=== PATIENT | female | born 2000 | race Caucasian/White ===

== ENCOUNTER → 2024-04-19 | Outpatient (CLI) | payer OTHER, SELFPAY ==
[2024-04-21 15:08] LABS: Albumin 4.1 g/dL (2.9-4.4); Alpha-1-Globulins 0.2 g/dL (0.0-0.4); Alpha-2-Globulins 0.9 g/dL (0.4-1.0); Gamma Globulin 0.8 g/dL (0.4-1.8); Immunoglobulin A 124 mg/dL (87-352); Immunoglobulin G 924 mg/dL (586-1602); Immunoglobulin M 138 mg/dL (26-217); PROEL- TOTAL PROTEIN 7.1 g/dL (6.0-8.5)
== END | disposition home or self-care (01) ==
PROVIDERS: PCP Nurse Practitioner Family; Referring Provider Psychiatry & Neurology Neurology; Visit Provider Psychiatry & Neurology Neurology
DX: M32.13 Lung involvement in systemic lupus erythematosus (principal)
CPT/HCPCS: 36415; 82784; 84165; 86334

== ENCOUNTER → 2024-09-02 | Outpatient (CLI) | payer OTHER, SELFPAY ==
[2024-09-02 14:17] LABS: Hematocrit 40.8 % (37-47); Hemoglobin 13.6 g/dL (12.0-15.0); Mean Corp Hgb Conc 33.3 g/dL (32-36); Mean Corpuscular Volume 87.7 fL (81-99); Mean Platelet Vol. 10.2 fl (6.2-12.0); Platelet Count 357 K/mm3 (150-450); RBC Distribution Width CV 11.9 % (11.6-14.6); RBC Distribution Width SD 38.5 fl (35.1-43.9); Red Blood Count 4.65 M/mm3 (4.2-5.4); White Blood Count 6.7 K/mm3 (4.4-11.0)
[2024-09-02 15:25] LABS: AST(SGOT) 59 U/L (<=31); Alanine Aminotransfer ALT/SGPT 39 U/L (<=34); Albumin, Serum 4.4 g/dL (3.5-5.0); Alkaline Phosphatase 71 U/L (35-104); Anion Gap 14 (5-15); BUN 10 mg/dL (4-19); BUN/Creat Ratio 17.2 RATIO (10-20); CRP 7.53 mg/L (0.0-3.0); Calcium,Total 9.7 mg/dL (7.6-11.0); Carbon Dioxide 22.1 mmol/L (21.0-32.0); Chloride 101 mmol/L (98-108); Cholesterol 226 mg/dL (<=190); Globulin 3.3 g/dL (2.2-4.2); Glucose 88 mg/dL (70-99); Low Density Lipoprotein Calc. 108 mg/dL; Potassium 4.3 mmol/L (3.3-5.1); Triglycerides 298 mg/dL; Very Low Density Lipoprotein 60 mg/dL (5-40); cholesterol:hdl ratio screen 3.90
[2024-09-02 15:39] LABS: Vitamin B12 161 pg/mL (180-914); Vitamin D,25 Hydroxy 25.3 ng/mL (30-100)
[2024-09-02 15:39] LABS: FOLATES,SERUM (FOLIC ACID) 17.90 ng/mL (4.60-34.80)
[2024-09-06 14:08] LABS: ANTINUCLEAR ANTIBODIES DIRECT Negative (Negative)
[2024-09-07 14:08] LABS: EBV Acute VCA IgM < 36.0 U/mL (0.0-35.9); EBV-VCA IgG < 18.0 U/mL (0.0-17.9); Lyme Scn Total Ab w/Rflx Negative (Negative); West Nile Virus, IgG Negative (Negative); West Nile Virus, IgM Negative (Negative)
== END | disposition home or self-care (01) ==
LOC: LAB 13:28
PROVIDERS: PCP Nurse Practitioner Family
DX: G44.52 New daily persistent headache (NDPH) (principal); Z79.899 Other long term (current) drug therapy; G43.719 Chronic migraine without aura, intractable, without status migrainosus
CPT/HCPCS: 36415; 80053; 80061; 82306; 82607; 82670; 82746; 83516; 84439; 84443; 85027; 85652; 86038; 86140; 86225; 86618; 86664; 86665; 86788; 86789

== ENCOUNTER → 2024-10-25 | Outpatient (CLI) | payer OTHER, SELFPAY ==
--- NOTE | 2024-10-25 09:13 | MRI_ITS ---
PROCEDURE: MRI SPINE CERVICAL (ROUTINE) 10/25/2024 REASON FOR EXAM: CERVICALGIA TECHNIQUE: Procedure Code: MRISPC Modality: MR Procedure: SPINE CERVICAL (ROUTINE) Multiplanar and multisequential MRI of the cervical spine was performed without contrast. COMPARISON: None. FINDINGS: No fracture or malalignment. Vertebral bodies are preserved in height with normal marrow signal. Straightening of the cervical lordosis may be positional or related to muscle spasm. Well preserved disc heights and signal intensities, no significant degenerative changes are appreciated. Widely patent spinal canal and bilateral neural foramina. No disc herniation. The visualized contents of the posterior fossa appear normal. Cerebellar tonsils are normally situated. The visualized spinal cord is normal in signal and contour. No mass lesion or abnormal collection within the spinal canal. Unremarkable paravertebral soft tissues. MRI/Spine Cervical (Routine) IMPRESSION: Normal cervical spine MRI. No spinal canal or foraminal narrowing. Straightening of the cervical lordosis may be positional or related to muscle s pasm. Reading Location: [facility]
--- NOTE | 2024-10-25 09:13 | MRI_ITS ---
PROCEDURE: MRI BRAIN W/WO CONTRAST 10/25/2024 REASON FOR EXAM: Chronic migraine headaches TECHNIQUE: Procedure Code: [id number] Modality: MR Procedure: BRAIN W/WO CONTRAST Multiplanar and multisequential MRI of the brain was performed without and with IV gadolinium based contrast administration. CONTRAST: Clariscan VOLUME: 12 mL COMPARISON: None available. FINDINGS: Ventricular and sulcal size and configuration are within normal limits. No regions of abnormal restricted diffusion, susceptibility, or other parenchymal signal alteration. No intracranial mass lesion or pathologic enhancement. Major vascular flow voids are preserved. Orbital contents are unremarkable. Well-aerated paranasal sinuses and mastoid air cells. MRI/Brain W/WO Contrast IMPRESSION: Normal brain MRI; no explanation for headaches. Reading Location: [facility]
== END | disposition home or self-care (01) ==
PROVIDERS: PCP Nurse Practitioner Family
DX: R51.9 Headache, unspecified (principal); M54.2 Cervicalgia; F95.2 Tourette's disorder
CPT/HCPCS: 70553; 72141; A9575; A4216

== ENCOUNTER → 2025-01-07 | Outpatient (CLI) | payer OTHER, SELFPAY ==
--- OUTSIDE RECORDS SUMMARY | 2025-01-07 11:20 | XMS RPT_ITS | CCD ---
Author Organization [facility] CliniSyin Care Team Providers Care Chemical Blender Name Role Phone SMOOTH JORDAN Attending Unavailable JULIO CÉSAR, GRACIA SWAN Primary Care Unavailable REFERRED, SELF Referring Unavailable SMOOTH JORDAN Attending Unavailable JULIO CÉSAR, GRACIA DEHABETSY Primary Care Unavailable JULIO CÉSAR, GRACIA DEHASS Referring Unavailable Unavailable Primary Care Provider Unavailabl e Unavailable Primary Care Provider Unavailabl e JEANETTE VENEGAS CNP Admitting Unavailable JEANETTE VENEGAS CNP Attending Unavailable JEANETTE VENEGAS CNP Primary Care Unavailable O'GALEMANOJ FORGE TENDER Attending Unavailable Suzette'GALEMANOJ FORGE TENDER Primary Care Unavailable O'GALEMANOJ FORGE TENDER Admitting Unavailable JASON BALBUENA Attending Unavailable RICHY FREEDMAN Attending Unavailable JASON BALBUENA Referring Unavailable JASON BALBUENA Attending Unavailable SMOOTH JORDAN Referring Unavailable JASON BALBUENA Attending Unavailable Unavailable Primary Care Provider Unavailabl e Jeanette Venegas Primary Care Provider Brett FORGE TENDER-CGale Primary Care Provider [phone] Dr. Zarina Simeon MD Attending Provider Dr. Zarina Simeon MD Referring Provider ZARINA SLAUGHTER Attending Unavailable JEANETTE VENEGAS Primary Care Unavailable ZARINA SLAUGHTER Attending Unavailable JEANETTE VENEGAS Primary Care Unavailable ZARINA SLAUGHTER Attending Unavailable JEANETTE VENEGAS Primary Care Unavailable ZARINA SLAUGHTER Attending Unavailable JEANETTE VENEGAS Primary Care Unavailable ELPIDIO DOE Attending Provider ELPIDIO ODE Referring Provider Brett FORGE TENDER-CGale Primary Care Provider [place] Primary Care Unavailable SAGE DURAN Attending Unavailable [place] Primary Care Unavailable SAGE DURAN Attending Unavailable SAGE DURAN Referring Unavailable [place] Primary Care Unavailable Zarina Simeon Attending Unavailable Zraina Simeon Referring Unavailable ELPIDIO DOE Attending Physician Brett FORGE TENDER-CGale Primary Care Physician [phone] TO LAM Attending Physician Allergies Allergy Classification Reported Allergen(s) Allergy Type Date of Onset Reaction(s) Facility (2 sources) TILACTASE; Translations: [TILACTASE] Propensity to adverse reactions to drug (disorder) 0 Other: See Comments [facility] Repository (10 sources) Milk; Translations: [MILK CONTAINING PRODUCTS (DAIRY)] Drug Allergy 7 Mental Status Change, Other: See Comments [facility] (5 sources) Cow milk Propensity to adverse reactions 4 Headache [facility] Medications Current Medications Medication Drug Class(es) Dates Sig (Normalized) Sig (Original) drospirenone 3 mg / ethinyl estradiol 0.03 mg oral tablet (5 sources) Progestin, Estrogen drospirenone-ethin yl estradiol (Zumandimine) 3-0.03 MG tablet Take 1 tablet by mouth daily. Active escitalopram 20 mg oral tablet (14 sources) Serotonin Reuptake Inhibitor Start: 12-20-2022 take 1 tablet by mouth once daily escitalopram oxalate (LEXAPRO) 20 mg tablet Indications: Anxiety neurosis Take 1 tablet by mouth once daily. 12/20/2022 Active Comment on above: Take 1 tablet by [facility] once daily. ondansetron 4 mg oral tablet (3 sources) Serotonin-3 Receptor Antagonist Start: 02-18-2024 take 1 tablet by mouth every eight hours as needed for nausea and vomiting ondansetron (Zofran) 4 MG tablet Take 4 mg by mouth every 8 hours as needed for nausea or vomiting. 02/18/2024 Active Completed/Discontinued Medications Medication Drug Class(es) Dates Sig (Normalized) Sig (Original) amitriptyline hydrochloride 10 mg oral tablet (1 source) Tricyclic Antidepressant Start: 3 End: 4 take 1 tablet by mouth once daily at bedtime amitriptyline (ELAVIL) 10 mg tablet Indications: Chronic daily headache Take 1 tablet by mouth daily at bedtime. 90 tablet 1 12/20/2022 04/01/2023 Discontinued Comment on above: Take 1 tablet by micah th daily at bedtime. onabotulinumtoxina 200 unt injection (4 sources) Acetylcholine Release Inhibitor Start: End: onabotulinumtoxinA (Botox) injection 200 Units Start: 03-05-2024 End: 03-05-2024 inject 200 [IU] by intramuscular injection once 200 Units, IntraMUSCular, Once, On Fri03/05/24 at 1145, For 1 dose, FREE SAMPLE Start: 10-10-2023 End: 10-10-2023 onabotulinum toxin type A 20 0 Units injection (BOTOX) Start: 10-10-2023 End: 10-10-2023 inject 1 dose by intramuscular injection once 200 Units, INTRAMUSCULAR, ONCE, 1 dose, On Fri10/10/23 at 1400, This record documents the total dose provided to patient. See progress note for specific locations and amounts administered. 1.5 ml fremanezumab-vfrm 150 mg/ml auto-injector (7 sources) Start: 04-01-2023 End: 08-27-2023 inject 1.5 mL by subcutaneous injection every month fremanezumab-vfrm (AJOVY AUTOINJECTOR) 225 mg/1.5 mL auto-injector Indications: Intractable chronic migraine without aura and without status migrainosus Inject 1.5 mL subcutaneously once every month. Do not shake. 1.5 mL 5 04/01/2023 08/27/2023 Discontinued Comment on above: Inject 1.5 mL subcut aneously once every month. Do not shake. propranolol hydrochloride 20 mg oral tablet (6 sources) beta-Adrenergic Ardha Start: 04-01-2023 End: 07-01-2023 take 1 tablet by mouth once daily at bedtime propranolol (INDERAL) 20 mg tablet Indications: Intractable chronic migraine without aura and without status migrainosus Take 1 tablet by mouth daily at bedtime. 90 tablet 1 04/01/2023 07/01/2023 Discontinued (Other) Comment on above: Take 1 tablet by micah th daily at bedtime. Problems Problem Classification Problem Date Documented Da te Episodic/Chronic Headache; including migraine (10 sources) Chronic intractable migraine without aura; Translations: [Chronic migraine without aura, intractable, without status migrainosus] Onset: 09-07-2024 04-01-2023 Chronic Headache; including migraine (4 sources) Chronic daily headache; Translations: [Chronic daily headache] Onset: 09-11-2023 07-01-2023 Episodic Headache; including migraine (4 sources) Headache; including migraine; Translations: [Headache, unspecified] Onset: 08-28-2023 Malaise and fatigue (1 source) Other fatigue; Translations: [Other fatigue] Onset: 08-28-2023 Episodic Miscellaneous mental health disorders (5 sources) Dissociative neurological symptom disorder; 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 Imaging Services [address] [place], [place] [id number] Brain W/WO Contrast MR#: [id number] Acct: [id number] Name: FABIENNEMARY CHINO NEFTALI Rep #: [id number] : 2000 F 23 From: Song Corbin MD PCP: IRA Biggs, FORGE TENDER-C Status: REG CLI Study: Brain W/WO Contrast Date of Exam: 10/25/24 Exam# [id number] Ordering Dr: TO LAM MD PROCEDURE: MRI BRAIN W/WO CONTRAST 10/25/2024 REASON FOR EXAM: Chronic migraine headaches TECHNIQUE: Procedure Code: MRIBRWW Modality: MR Procedure: BRAIN W/WO CONTRAST Multiplanar and multisequential MRI of the brain was performed without and with IV gadolinium based contrast administration. CONTRAST: Clariscan VOLUME: 12 mL COMPARISON: None available. FINDINGS: Ventricular and sulcal size and configuration are within normal limits. No regions of abnormal restricted diffusion, susceptibility, or other parenchymal signal alteration. No intracranial mass lesion or pathologic enhancement. Major vascular flow voids are preserved. Orbital contents are unremarkable. Well-aerated paranasal sinuses and mastoid air cells. MRI/Brain W/WO Contrast IMPRESSION: Normal brain MRI; no explanation for headaches. Reading Location: [facility] CC: [facility] FORGE TENDER-C [place]; TO LAM MD Chief Concierge: Signed Normal [facility] Magnetic resonance imaging r eportOrdered By: Song Corbin on 10-25-[address] [facility] Imaging Services [address] [place] [address] Spine Cervical (Routine) MR#: [id number] Acct: [id number] Name: VEENAMARYOsman LINDSAY Rep #: [id number] : 2000 F 23 From: London Corbin MD PCP: Gale [place], [facility], FORGE TENDER-C Status: REG CLI Study:Spine Cervical (Routine) Date of Exam: 10/25/24 Exam# [id number] Ordering Dr: ANGELINE LAM MD PROCEDURE: MRI SPINE CERVICAL (ROUTINE) 10/25/2024 REASON FOR EXAM: CERVICALGIA TECHNIQUE: Procedure Code: MRISP Modality: MR Procedure: SPINE CERVICAL (ROUTINE) Multiplanar and multisequential MRI of the cervical spine was performed without contrast. COMPARISON: None. FINDINGS: No fracture or malalignment. Vertebral bodies are preserved in height with normal marrow signal. Straightening of the cervical lordosis may be positional or related to muscle spasm. Well preserved disc heights and signal intensities, no significant degenerative changes are appreciated. Widely patent spinal canal and bilateral neural foramina. No disc herniation. The visualized contents of the posterior fossa appear normal. Cerebellar tonsils are normally situated. The visualized spinal cord is normal in signal and contour. No mass lesion or abnormal collection within the spinal canal. Unremarkable paravertebral soft tissues. MRI/Spine Cervical (Routine) IMPRESSION: Normal cervical spine MRI. No spinal canal or foraminal narrowing. Straightening of the cervical lordosis may be positional or related to muscle spasm. Reading Location: [facility] CC: [facility] FORGE TENDER-C [place]; TO LAM MD ~ Chief Concierge: Signed [facility] Study report [facility] Imaging Services [address] [place], [place] [id number] Brain W/WO Contrast MR#: [id number] Acct: [id number] Name: MARY CURIEL Rep #: [id number] : 2000 F 23 From: London Corbin MD PCP: [place] Bear, FORGE TENDER-C Status: REG CLI Study:Brain W/WO Contrast Date of Exam: 10/25/24 Exam# [id number] Ordering Dr: ANGELINE LAM MD PROCEDURE: MRI BRAIN W/WO CONTRAST 10/25/2024 REASON FOR EXAM: Chronic migraine headaches TECHNIQUE: Procedure Code: MRIBRWW Modality: MR Procedure: BRAIN W/WO CONTRAST Multiplanar and multisequential MRI of the brain was performed without and with IV gadolinium based contrast administration. CONTRAST: Clariscan VOLUME: 12 mL COMPARISON: None available. FINDINGS: Ventricular and sulcal size and configuration are within normal limits. No regions of abnormal restricted diffusion, susceptibility, or other parenchymal signal alteration. No intracranial mass lesion or pathologic enhancement. Major vascular flow voids are preserved. Orbital contents are unremarkable. Well-aerated paranasal sinuses and mastoid air cells. MRI/Brain W/WO Contrast IMPRESSION: Normal brain MRI; no explanation for headaches. Reading Location: [facility] CC: [facility] FORGE TENDER-C Gale LAM MD ~ Chief Concierge: Signed [facility] Spine Cervical (Routine)on 0 10-25-2024 Spine Cervical (Routine) [facility] Imaging Services [address] [place], [place] [address] Spine Cervical (Routine) MR#: [id number] Acct: [id number] Name: MARY CURIEL Rep #: [id number] : 2000 F 23 From: Song Corbin MD PCP: Gale [place] [facility], FORGE TENDER-C Status: REG CLI Study: Spine Cervical (Routine) Date of Exam: Exam# [id number] Ordering Dr: TO LAM MD PROCEDURE: MRI SPINE CERVICAL (ROUTINE) 10/25/2024 REASON FOR EXAM: CERVICALGIA TECHNIQUE: Procedure Code: MRISP Modality: MR Procedure: SPINE CERVICAL (ROUTINE) Multiplanar and multisequential MRI of the cervical spine was performed without contrast. COMPARISON: None. FINDINGS: No fracture or malalignment. Vertebral bodies are preserved in height with normal marrow signal. Straightening of the cervical lordosis may be positional or related to muscle spasm. Well preserved disc heights and signal intensities, no significant degenerative changes are appreciated. Widely patent spinal canal and bilateral neural foramina. No disc herniation. The visualized contents of the posterior fossa appear normal. Cerebellar tonsils are normally situated. The visualized spinal cord is normal in signal and contour. No mass lesion or abnormal collection within the spinal canal. Unremarkable paravertebral soft tissues. MRI/Spine Cervical (Routine) IMPRESSION: Normal cervical spine MRI. No spinal canal or foraminal narrowing. Straightening of the cervical lordosis may be positional or related to muscle spasm. Reading Location: [facility] CC: [facility] FORGE TENDER-C [place]; TO LAM MD Chief Concierge: Signed Normal [facility] KELLEY w/ Reflex Mult Confirmon 09-07-2024 ANTI-DNA (DS)AB TNP Normal [facility] Comment on above: Performed By: #### L 501.9520, L101.9900, L506.0200, L501.6710, L3100.5450, L3410.2920, L3300.1750, L7000.5300, L7000.5000, L100.0500, L3410.9992, L3100.5850, L500.4100, L506.0400, L500.4050, L506.1001, L503.0106 #### [facility] [address] [place], [address] ANTI-SS-A TNP Normal [facility] Comment on above: Performed By: #### L 501.9520, L101.9900, L506.0200, L501.6710, L3100.5450, L3410.2920, L3300.1750, L7000.5300, L7000.5000, L100.0500, L3410.9992, L3100.5850, L500.4100, L506.0400, L500.4050, L506.1001, L503.0106 #### [facility] [address] [place] [place], [address] ANTI-SS-B TNP Normal [facility] Comment on above: Performed By: #### L 501.9520, L101.9900, L506.0200, L501.6710, L3100.5450, L3410.2920, L3300.1750, L7000.5300, L7000.5000, L100.0500, L3410.9992, L3100.5850, L500.4100, L506.0400, L500.4050, L506.1001, L503.0106 #### [facility] [address] [place] [place], [address] EBV Acute Prof IgG / IgMon 0 - EB Ab VCA, IgG < 18.0 Normal 0.0-17.9 [facility] Comment on above: Result Comment: Nega tive <18.0 Equivocal 18.0 - 21.9 Positive >21.9 Performed By: #### L 501.9520, L101.9900, L506.0200, L501.6710, L3100.5450, L3410.2920, L3300.1750, L7000.5300, L7000.5000, L100.0500, L3410.9992, L3100.5850, L500.4100, L506.0400, L500.4050, L506.1001, L503.0106 #### [facility] [address] [place] [place], [address] EBV Ab VCA, IgM < 36.0 Normal 0.0-35.9 [facility] Comment on above: Result Comment: Nega tive <36.0 Equivocal 36.0 - 43.9 Positive >43.9 Performed By: #### L 501.9520, L101.9900, L506.0200, L501.6710, L3100.5450, L3410.2920, L3300.1750, L7000.5300, L7000.5000, L100.0500, L3410.9992, L3100.5850, L500.4100, L506.0400, L500.4050, L506.1001, L503.0106 #### [facility] [address] [place] [place], [address] EBV NuAg Ab,IgG < 18.0 Normal 0.0-17.9 [facility] Comment on above: Result Comment: Nega tive <18.0 Equivocal 18.0 - 21.9 Positive >21.9 Performed By: #### L 501.9520, L101.9900, L506.0200, L501.6710, L3100.5450, L3410.2920, L3300.1750, L7000.5300, L7000.5000, L100.0500, L3410.9992, L3100.5850, L500.4100, L506.0400, L500.4050, L506.1001, L503.0106 #### [facility] [address] [place], [address] INTERPRETATION Comment Normal . [facility] Comment on above: Result Comment: EBV Interpretation Chart Tang: Antibody Present + Antibody Absent - Interpretation VCA-IgM VCA-IgG EBNA-IgG No previous infection/ - - - Susceptible Primary infection (new + + - or recent) Past Infection +or- + + See comment below* + - - *Results indicate infection with EBV at some time however cannot predict the timing of the infection since antibodies to EBNA usually develop after primary infection or, alternatively, approximately 5-10% of patients with EBV never develop antibodies to EBNA. Performed By: #### L 501.9520, L101.9900, L506.0200, L501.6710, L3100.5450, L3410.2920, L3300.1750, L7000.5300, L7000.5000, L100.0500, L3410.9992, L3100.5850, L500.4100, L506.0400, L500.4050, L506.1001, L503.0106 #### [facility] [address] [place] [place], [address] Lyme Screen W/Reflex WBon LYME SCREEN Ab Negative Normal Negative [facility] Comment on above: Result Comment: Lyme antibodies not detected. Reflex testing is not indicated. No laboratory evidence of infection with B. burgdorferi (Lyme disease). Negative results may occur in patients recently infected (less than or equal to 14 days) with B. burgdorferi. If recent infection is suspected, repeat testing on a new sample collected in 7 to 14 days is recommended. Performed By: #### L 501.9520, L101.9900, L506.0200, L501.6710, L3100.5450, L3410.2920, L3300.1750, L7000.5300, L7000.5000, L100.0500, L3410.9992, L3100.5850, L500.4100, L506.0400, L500.4050, L506.1001, L503.0106 #### [facility] [address] [place] [place], [address] West Nile Virus Abon 025 [place], IgG Negative Normal Negative [facility] Comment on above: Performed By: #### L 501.9520, L101.9900, L506.0200, L501.6710, L3100.5450, L3410.2920, L3300.1750, L7000.5300, L7000.5000, L100.0500, L3410.9992, L3100.5850, L500.4100, L506.0400, L500.4050, L506.1001, L503.0106 #### [facility] [address] [place], [place], [id number] [place], IgM Negative Normal Negative [facility] Comment on above: Performed By: #### L 501.9520, L101.9900, L506.0200, L501.6710, L3100.5450, L3410.2920, L3300.1750, L7000.5300, L7000.5000, L100.0500, L3410.9992, L3100.5850, L500.4100, L506.0400, L500.4050, L506.1001, L503.0106 #### [facility] [address] [place], [place], [id number] t-Transglutaminase IgAon tTG IGA <2 Normal 0-3 [facility] Comment on above: Result Comment: Nega tive 0 - 3 Weak Positive 4 - 10 Positive >10 Tissue Transglutaminase (tTG) has been identified as the endomysial antigen. Studies have demonstr- ated that endomysial IgA antibodies have over 99% specificity for gluten sensitive enteropathy. Performed at: [address] [id number] Overlay Plastician: Lamberto Quiroz PhD, Phone: [phone] Performed at: [address] [id number] Overlay Plastician: Iban Reagan MD, Phone: [phone] Performed By: #### L 501.9520, L101.9900, L506.0200, L501.6710, L3100.5450, L3410.2920, L3300.1750, L7000.5300, L7000.5000, L100.0500, L3410.9992, L3100.5850, L500.4100, L506.0400, L500.4050, L506.1001, L503.0106 #### [facility] [place], [address] L3410.9992on 09-06-2024 [facility] Misc. COMMENT Normal . [facility] Comment on above: Order Comment: [id number] 0URINE TOX RT Result Comment: Test Ordered: [id number] Amphetamines Screen, Urine Negative ng/mL UI Reference Range: Dcsldh=863 Amphetamine test includes Amphetamine and Methamphetamine. Barbiturates Negative ng/mL UI Reference Range: Qromxt=470 Benzodiazepines Negative ng/mL UI Reference Range: Zvhhvi=564 Cocaine (Metab.), Urine Negative ng/mL UI Reference Range: Qzbvbg=537 Opiates Negative ng/mL UI Reference Range: Ndgqbj=371 Opiate test includes Codeine, Morphine, Hydromorphone, Hydrocodone. 6-Acetylmorphine, Urine Negative ng/mL UI Reference Range: Cutoff=10 Oxycodone/Oxymorphone, Urine Negative ng/mL UI Reference Range: Wdbsnf=988 Test includes Oxycodone and Oxymorphone PCP, Urine Negative ng/mL UI Reference Range: Cutoff=25 Methadone Screen, Urine Negative ng/mL UI Reference Range: Gxgsjf=717 Propoxyphene, Urine Negative ng/mL UI Reference Range: Lmghhi=728 Fentanyl, Urine Negative ng/mL UI Reference Range: Cutoff=2.0 Test includes Fentanyl and Norfentanyl This test was developed and its performance characteristics determined by [facility]. It has not been cleared or approved by the Food and Drug Administration. Tramadol Negative ng/mL UI Reference Range: Ceylqd=022 Buprenorphine, Urine Negative ng/mL UI Reference Range: Cutoff=10 Creatinine, Urine 69.7 mg/dL UI Reference Range: 20.0-300.0 pH, Urine 7.4 UI Reference Range: 4.5-8.9 Performed at: - [facility] [address] [facility], [place] [id number] Overlay Plastician: Sher Jaramillo PhD, Phone: [phone] Performed at: [address] [id number] Overlay Plastician: Lamberto Quiroz PhD, Phone: [phone] Performed By: #### L 501.9520, L101.9900, L506.0200, L501.6710, L3100.5450, L3410.2920, L3300.1750, L7000.5300, L7000.5000, L100.0500, L3410.9992, L3100.5850, L500.4100, L506.0400, L500.4050, L506.1001, L503.0106 #### [facility] [address] [place], [address] Anion gap in Serum or Plasma on 09-02-2024 Anion gap [Moles/Vol] 14 mmol/L 5-15 [facility] BUN/creatinine ratioon 09-02 Urea nitrogen/Creatinine [Mass ratio] 17.2 mg/mg 10- [facility] Bilirubin, totalon Bilirubin [Mass/Vol] 0.88 mg/dL 0.00-1.30 [facility] CBC-Complete Blood Cnt No Di ffon 09-02-2024 Erythrocyte distribution width (RBC) [Ratio] 11.9 % Normal 11.6-14.6 [facility] Comment on above: Performed By: #### L 501.9520, L101.9900, L506.0200, L501.6710, L3100.5450, L3410.2920, L3300.1750, L7000.5300, L7000.5000, L100.0500, L3410.9992, L3100.5850, L500.4100, L506.0400, L500.4050, L506.1001, L503.0106 #### [facility] [address] [place], [address] Hematocrit (Bld) [Volume fraction] 40.8 % Normal 37-47 [facility] Comment on above: Performed By: #### L 501.9520, L101.9900, L506.0200, L501.6710, L3100.5450, L3410.2920, L3300.1750, L7000.5300, L7000.5000, L100.0500, L3410.9992, L3100.5850, L500.4100, L506.0400, L500.4050, L506.1001, L503.0106 #### [facility] [address] [place], [place], [phone] ([phone]) Hemoglobin (Bld) [Mass/Vol] 13.6 g/dL Normal 12.0-15.0 [facility] Comment on above: Performed By: #### L 501.9520, L101.9900, L506.0200, L501.6710, L3100.5450, L3410.2920, L3300.1750, L7000.5300, L7000.5000, L100.0500, L3410.9992, L3100.5850, L500.4100, L506.0400, L500.4050, L506.1001, L503.0106 #### [facility] [address] [place], [place], [phone] (581) MCH (RBC) [Entitic mass] 29.2 pg Normal 27.0-32.0 [facility] Comment on above: Performed By: #### L 501.9520, L101.9900, L506.0200, L501.6710, L3100.5450, L3410.2920, L3300.1750, L7000.5300, L7000.5000, L100.0500, L3410.9992, L3100.5850, L500.4100, L506.0400, L500.4050, L506.1001, L503.0106 #### [facility] [address] [place], [address] MCHC (RBC) [Mass/Vol] 33.3 g/dL Normal 32-36 [facility] Comment on above: Performed By: #### L 501.9520, L101.9900, L506.0200, L501.6710, L3100.5450, L3410.2920, L3300.1750, L7000.5300, L7000.5000, L100.0500, L3410.9992, L3100.5850, L500.4100, L506.0400, L500.4050, L506.1001, L503.0106 #### [facility] [address] [place], [address] (516) MCV (RBC) [Entitic vol] 87.7 fL Normal 81-99 [facility] Comment on above: Performed By: #### L 501.9520, L101.9900, L506.0200, L501.6710, L3100.5450, L3410.2920, L3300.1750, L7000.5300, L7000.5000, L100.0500, L3410.9992, L3100.5850, L500.4100, L506.0400, L500.4050, L506.1001, L503.0106 #### [facility] [address] [place], [address] Platelet mean volume (Bld) [Entitic vol] 10.2 fL Normal 6.2-12.0 [facility] Comment on above: Performed By: #### L 501.9520, L101.9900, L506.0200, L501.6710, L3100.5450, L3410.2920, L3300.1750, L7000.5300, L7000.5000, L100.0500, L3410.9992, L3100.5850, L500.4100, L506.0400, L500.4050, L506.1001, L503.0106 #### [facility] [address] [place], [address] (592) Platelets (Bld) [#/Vol] 357 10*3/uL Normal 150-450 [facility] Comment on above: Performed By: #### L 501.9520, L101.9900, L506.0200, L501.6710, L3100.5450, L3410.2920, L3300.1750, L7000.5300, L7000.5000, L100.0500, L3410.9992, L3100.5850, L500.4100, L506.0400, L500.4050, L506.1001, L503.0106 #### [facility] [address] [place], [place], [id number] RBC (Bld) [#/Vol] 4.65 10*6/uL Normal 4.2-5.4 [facility] Comment on above: Performed By: #### L 501.9520, L101.9900, L506.0200, L501.6710, L3100.5450, L3410.2920, L3300.1750, L7000.5300, L7000.5000, L100.0500, L3410.9992, L3100.5850, L500.4100, L506.0400, L500.4050, L506.1001, L503.0106 #### [facility] [address] [place], [place], [id number] RDW SD 38.5 fl Normal 35.1-43.9 [facility] Comment on above: Performed By: #### L 501.9520, L101.9900, L506.0200, L501.6710, L3100.5450, L3410.2920, L3300.1750, L7000.5300, L7000.5000, L100.0500, L3410.9992, L3100.5850, L500.4100, L506.0400, L500.4050, L506.1001, L503.0106 #### [facility] [address] [place], [place], [id number] WBC (Bld) [#/Vol] 6.7 10*3/uL Normal 4.4-11.0 [facility] Comment on above: Performed By: #### L 501.9520, L101.9900, L506.0200, L501.6710, L3100.5450, L3410.2920, L3300.1750, L7000.5300, L7000.5000, L100.0500, L3410.9992, L3100.5850, L500.4100, L506.0400, L500.4050, L506.1001, L503.0106 #### [facility] [address] [place], [place], [id number] CRPon 09-02-2024 C-REACTIVE PROT 7.53 mg/L High 0.0-3.0 [facility] Comment on above: Performed By: #### L 501.9520, L101.9900, L506.0200, L501.6710, L3100.5450, L3410.2920, L3300.1750, L7000.5300, L7000.5000, L100.0500, L3410.9992, L3100.5850, L500.4100, L506.0400, L500.4050, L506.1001, L503.0106 #### [facility] [address] [place], [place], [id number] Calculated very low density lipoprotein (VLDL) cholesterol measurementon 09-02-2024 Calculated very low density lipoprotein (VLDL) cholesterol measurement 60 mg/dL High 5-40 [facility] Carbon dioxide, total [Moles /volume] in Central venous bloodon 09-02-2024 CO2 [Moles/Vol] 22.1 mmol/L 21.0-32.0 [facility] Chloride assayon 09-02-2024 Chloride [Moles/Vol] 101 mmol/L 98-108 [facility] Metabolic Prof ilon 09-02-2024 Albumin [Mass/Vol] 4.4 g/dL Normal 3.5-5.0 [facility] Comment on above: Performed By: #### L 501.9520, L101.9900, L506.0200, L501.6710, L3100.5450, L3410.2920, L3300.1750, L7000.5300, L7000.5000, L100.0500, L3410.9992, L3100.5850, L500.4100, L506.0400, L500.4050, L506.1001, L503.0106 #### [facility] [address] [place], [place], [id number] Albumin/Globulin [Mass ratio] 1.3 {ratio} Normal 0.9-2.4 [facility] Comment on above: Performed By: #### L 501.9520, L101.9900, L506.0200, L501.6710, L3100.5450, L3410.2920, L3300.1750, L7000.5300, L7000.5000, L100.0500, L3410.9992, L3100.5850, L500.4100, L506.0400, L500.4050, L506.1001, L503.0106 #### [facility] [address] [facility] [place], [place], [id number] ALK PHOS 71 U/L Normal 35-104 [facility] Comment on above: Performed By: #### L 501.9520, L101.9900, L506.0200, L501.6710, L3100.5450, L3410.2920, L3300.1750, L7000.5300, L7000.5000, L100.0500, L3410.9992, L3100.5850, L500.4100, L506.0400, L500.4050, L506.1001, L503.0106 #### [facility] [address] [place], [place], [id number] ALT [Catalytic activity/Vol] 39 U/L High <=34 [facility] Comment on above: Performed By: #### L 501.9520, L101.9900, L506.0200, L501.6710, L3100.5450, L3410.2920, L3300.1750, L7000.5300, L7000.5000, L100.0500, L3410.9992, L3100.5850, L500.4100, L506.0400, L500.4050, L506.1001, L503.0106 #### [facility] [address] [place], [place], [id number] AST [Catalytic activity/Vol] 59 U/L High <=31 [facility] Comment on above: Performed By: #### L 501.9520, L101.9900, L506.0200, L501.6710, L3100.5450, L3410.2920, L3300.1750, L7000.5300, L7000.5000, L100.0500, L3410.9992, L3100.5850, L500.4100, L506.0400, L500.4050, L506.1001, L503.0106 #### [facility] [address] [place], [address] Bilirubin [Mass/Vol] 0.88 mg/dL Normal 0.00-1.30 [facility] Comment on above: Performed By: #### L 501.9520, L101.9900, L506.0200, L501.6710, L3100.5450, L3410.2920, L3300.1750, L7000.5300, L7000.5000, L100.0500, L3410.9992, L3100.5850, L500.4100, L506.0400, L500.4050, L506.1001, L503.0106 #### [facility] [address] [place], [address] BUN/CRE 17.2 RATIO Normal 10-20 [facility] Comment on above: Performed By: #### L 501.9520, L101.9900, L506.0200, L501.6710, L3100.5450, L3410.2920, L3300.1750, L7000.5300, L7000.5000, L100.0500, L3410.9992, L3100.5850, L500.4100, L506.0400, L500.4050, L506.1001, L503.0106 #### [facility] [address] [place], [address] Calcium [Mass/Vol] 9.7 mg/dL Normal 7.6-11.0 [facility] Comment on above: Performed By: #### L 501.9520, L101.9900, L506.0200, L501.6710, L3100.5450, L3410.2920, L3300.1750, L7000.5300, L7000.5000, L100.0500, L3410.9992, L3100.5850, L500.4100, L506.0400, L500.4050, L506.1001, L503.0106 #### [facility] [address] [place], [place], [id number] ([address] Chloride [Moles/Vol] 101 mmol/L Normal 98-108 [facility] Comment on above: Performed By: #### L 501.9520, L101.9900, L506.0200, L501.6710, L3100.5450, L3410.2920, L3300.1750, L7000.5300, L7000.5000, L100.0500, L3410.9992, L3100.5850, L500.4100, L506.0400, L500.4050, L506.1001, L503.0106 #### [facility] [address] [place], [address] CO2 [Moles/Vol] 22.1 mmol/L Normal 21.0-32.0 [facility] Comment on above: Performed By: #### L 501.9520, L101.9900, L506.0200, L501.6710, L3100.5450, L3410.2920, L3300.1750, L7000.5300, L7000.5000, L100.0500, L3410.9992, L3100.5850, L500.4100, L506.0400, L500.4050, L506.1001, L503.0106 #### [facility] [address] [facility] [address], [address] Creatinine [Mass/Vol] 0.61 mg/dL Low 0.70-1.20 [facility] Comment on above: Performed By: #### L 501.9520, L101.9900, L506.0200, L501.6710, L3100.5450, L3410.2920, L3300.1750, L7000.5300, L7000.5000, L100.0500, L3410.9992, L3100.5850, L500.4100, L506.0400, L500.4050, L506.1001, L503.0106 #### [facility] [address] [place], [address] GAP 14 Normal 5-15 [facility] Comment on above: Performed By: #### L 501.9520, L101.9900, L506.0200, L501.6710, L3100.5450, L3410.2920, L3300.1750, L7000.5300, L7000.5000, L100.0500, L3410.9992, L3100.5850, L500.4100, L506.0400, L500.4050, L506.1001, L503.0106 #### [facility] [address] [facility] [place], [place], [id number] GFR/1.73 sq M.predicted among non-blacks MDRD (S/P/Bld) [Vol rate/Area] 131 mL/min/{1.73_m2} Normal >60 [facility] Comment on above: Result Comment: mL/m in/1.73m2 CKD-EPI Creatinine Equation (2020) Performed By: #### L 501.9520, L101.9900, L506.0200, L501.6710, L3100.5450, L3410.2920, L3300.1750, L7000.5300, L7000.5000, L100.0500, L3410.9992, L3100.5850, L500.4100, L506.0400, L500.4050, L506.1001, L503.0106 #### [facility] [address] [place], [place], [id number] (971) Globulin (S) [Mass/Vol] 3.3 g/dL Normal 2.2-4.2 [facility] Comment on above: Performed By: #### L 501.9520, L101.9900, L506.0200, L501.6710, L3100.5450, L3410.2920, L3300.1750, L7000.5300, L7000.5000, L100.0500, L3410.9992, L3100.5850, L500.4100, L506.0400, L500.4050, L506.1001, L503.0106 #### [facility] [address] [place], [place], [id number] Glucose [Mass/Vol] 88 mg/dL Normal 70-99 [facility] Comment on above: Performed By: #### L 501.9520, L101.9900, L506.0200, L501.6710, L3100.5450, L3410.2920, L3300.1750, L7000.5300, L7000.5000, L100.0500, L3410.9992, L3100.5850, L500.4100, L506.0400, L500.4050, L506.1001, L503.0106 #### [facility] [address] [place], [place], [id number] Potassium [Moles/Vol] 4.3 mmol/L Normal 3.3-5.1 [facility] Comment on above: Performed By: #### L 501.9520, L101.9900, L506.0200, L501.6710, L3100.5450, L3410.2920, L3300.1750, L7000.5300, L7000.5000, L100.0500, L3410.9992, L3100.5850, L500.4100, L506.0400, L500.4050, L506.1001, L503.0106 #### [facility] [address] [place], [place], [id number] Sodium [Moles/Vol] 137 mmol/L Normal 133-145 [facility] Comment on above: Performed By: #### L 501.9520, L101.9900, L506.0200, L501.6710, L3100.5450, L3410.2920, L3300.1750, L7000.5300, L7000.5000, L100.0500, L3410.9992, L3100.5850, L500.4100, L506.0400, L500.4050, L506.1001, L503.0106 #### [facility] [address] [place], [place], [id number] T PROT 7.8 g/dL Normal 5.9-8.4 [facility] Comment on above: Performed By: #### L 501.9520, L101.9900, L506.0200, L501.6710, L3100.5450, L3410.2920, L3300.1750, L7000.5300, L7000.5000, L100.0500, L3410.9992, L3100.5850, L500.4100, L506.0400, L500.4050, L506.1001, L503.0106 #### [facility] [address] [place], [address] Urea nitrogen [Mass/Vol] 10 mg/dL Normal 4-19 [facility] Comment on above: Performed By: #### L 501.9520, L101.9900, L506.0200, L501.6710, L3100.5450, L3410.2920, L3300.1750, L7000.5300, L7000.5000, L100.0500, L3410.9992, L3100.5850, L500.4100, L506.0400, L500.4050, L506.1001, L503.0106 #### [facility] [address] [place], [place], [id number] Erythrocyte Sed Rateon 09-02 SED RATE 10 mm/hr Normal 0-30 [facility] Comment on above: Performed By: #### L 501.9520, L101.9900, L506.0200, L501.6710, L3100.5450, L3410.2920, L3300.1750, L7000.5300, L7000.5000, L100.0500, L3410.9992, L3100.5850, L500.4100, L506.0400, L500.4050, L506.1001, L503.0106 #### [facility] [address] [facility] [place], [place], [address] Erythrocyte distribution wid th ratioon 09-02-2024 Erythrocyte distribution width (RBC) [Ratio] 11.9 % 11.6-14.6 [facility] Erythrocyte distribution wid th standard deviationon 09-02-2024 Erythrocyte distribution width (RBC) [Ratio] 38.5 fl 35.1-43.9 [facility] Erythrocyte sedimentation ra maty 09-02-2024 ESR (Bld) [Velocity] 10 mm/h 0-30 [facility] Estradiolon 09-02-2024 ESTRADIOL < 5.0 Normal [facility] Comment on above: Result Comment: FEMA LES ADULT FEMALE: Premenopausal: 15-350 pg/mL(E2 levels vary widely through the menstrual cycle) Postmenopausal: <10 pg/mL SHAILESH STAGES MEAN AGE REFERENCE RANGES Stage I(>14 days and prepubertal) 7.1 years Undetectable-20 pg/mLL Stage II 10.5 years Undetectable-24 pg/mL Stage III 11.6 years Undetectable-60 pg/mL Stage IV 12.3 years 15-85 pg/mL Stage V 14.5 years 15-350 pg/mL Puberty onset (transition from Shailesh stage I to Shailesh stage II) occurs for girls at a median age of 10.5 (/- 2) years. There is evidence that it may occur up to 1 year earlier in obese girls and in girls. Progression through Shailesh stages is variable. Shailesh stage V (adult) should be reached by age 18. Performed By: #### L 501.9520, L101.9900, L506.0200, L501.6710, L3100.5450, L3410.2920, L3300.1750, L7000.5300, L7000.5000, L100.0500, L3410.9992, L3100.5850, L500.4100, L506.0400, L500.4050, L506.1001, L503.0106 #### [facility] [address] [place], [address] Folate [Moles/volume] in Ser um or Plasmaon 09-02-2024 Folate [Moles/Vol] 17.90 ng/mL 4.60-34.80 [facility] Comment on above: Hemolysis, Results w ill be affected, Requires Recollection. Folates,Serum (Folic Acid)on 09-02-2024 FOLATES,SERUM 17.90 ng/mL Normal 4.60-34.80 [facility] Comment on above: Order Comment: N Result Comment: Hemo lysis, Results will be affected, Requires Recollection. Performed By: #### L 501.9520, L101.9900, L506.0200, L501.6710, L3100.5450, L3410.2920, L3300.1750, L7000.5300, L7000.5000, L100.0500, L3410.9992, L3100.5850, L500.4100, L506.0400, L500.4050, L506.1001, L503.0106 #### [facility] [address] [place], [place], [id number] Glomerular filtration rate ( GFR) estimation/1.73 sq m using serum, plasma, or whole bon 09-02-2024 GFR/1.73 sq M.predicted among non-blacks MDRD (S/P/Bld) [Vol rate/Area] 131 mL/min/{1.73_m2} >60 [facility] Comment on above: mL/min/1.73m2 CKD-EP I Creatinine Equation (2020) Hematocrit Auto (Bld) [Volum e fraction]on 09-02-2024 Hematocrit (Bld) [Volume fraction] 40.8 % 37-47 [facility] Hemoglobin measurementon Hemoglobin (Bld) [Mass/Vol] 13.6 g/dL 12.0-15.0 [facility] LDL calc ser/plason 09-03-19 25 Cholesterol in LDL [Mass/Vol] 108 mg/dL [facility] Comment on above: Oknrdodujo=219-929 m g/dL & Higher Gqrl=155 mg/dL or greater Laboratory - Chemistry and C hemistry - challengeon 09-02-2024 AST [Catalytic activity/Vol] 59 U/L High <32 [facility] Lipid Profileon 09-02-2024 CHOL:HDL 3.90 Normal [facility] Comment on above: Performed By: #### L 501.9520, L101.9900, L506.0200, L501.6710, L3100.5450, L3410.2920, L3300.1750, L7000.5300, L7000.5000, L100.0500, L3410.9992, L3100.5850, L500.4100, L506.0400, L500.4050, L506.1001, L503.0106 #### [facility] [address] [place], [place], [id number] (663) Cholesterol [Mass/Vol] 226 mg/dL High <=190 [facility] Comment on above: Result Comment: Chol esterol level, Desirable <200 mg/dL Borderline high cholesterol 200-239 mg/dL High cholesterol >=240 mg/dL Recommendations of the NCEP Adult Treatment Panel for the following risk-cutoff thresholds for the [place] Stateless population. Performed By: #### L 501.9520, L101.9900, L506.0200, L501.6710, L3100.5450, L3410.2920, L3300.1750, L7000.5300, L7000.5000, L100.0500, L3410.9992, L3100.5850, L500.4100, L506.0400, L500.4050, L506.1001, L503.0106 #### [facility] [address] [place], [place], [id number] (736) Cholesterol in HDL [Mass/Vol] 58 mg/dL Normal [facility] Comment on above: Result Comment: Traci onal Cholesterol Education Program (NCEP) guidelines: <40 mg/dL: Low HDL-cholesterol (major risk factor for CHD) >= 60 mg/dL: High HDL-cholesterol (negative risk factor for CHD) HDL-cholesterol is affected by a number of factors, e.g. smoking, exercise, hormones, sex and age. Performed By: #### L 501.9520, L101.9900, L506.0200, L501.6710, L3100.5450, L3410.2920, L3300.1750, L7000.5300, L7000.5000, L100.0500, L3410.9992, L3100.5850, L500.4100, L506.0400, L500.4050, L506.1001, L503.0106 #### [facility] [address] [place], [place], [id number] (248) Cholesterol in LDL [Mass/Vol] 108 mg/dL Normal [facility] Comment on above: Result Comment: Bord jlalvc=881-380 mg/dL Higher Euug=611 mg/dL or greater Performed By: #### L 501.9520, L101.9900, L506.0200, L501.6710, L3100.5450, L3410.2920, L3300.1750, L7000.5300, L7000.5000, L100.0500, L3410.9992, L3100.5850, L500.4100, L506.0400, L500.4050, L506.1001, L503.0106 #### [facility] [address] [place], [place], [id number] (099) Cholesterol in VLDL [Mass/Vol] 60 mg/dL High 5-40 [facility] Comment on above: Performed By: #### L 501.9520, L101.9900, L506.0200, L501.6710, L3100.5450, L3410.2920, L3300.1750, L7000.5300, L7000.5000, L100.0500, L3410.9992, L3100.5850, L500.4100, L506.0400, L500.4050, L506.1001, L503.0106 #### [facility] [address] [place], [place], [id number] (539) Triglyceride [Mass/Vol] 298 mg/dL High [facility] Comment on above: Result Comment: The drugs N-Acetylcysteine and Metamizole may falsely depress this assay. Normal range: <150 mg/dL Borderline High: 150-199 mg/dL High: 200-499 mg/dL Very High: >500 mg/dL Performed By: #### L 501.9520, L101.9900, L506.0200, L501.6710, L3100.5450, L3410.2920, L3300.1750, L7000.5300, L7000.5000, L100.0500, L3410.9992, L3100.5850, L500.4100, L506.0400, L500.4050, L506.1001, L503.0106 #### [facility] [place], [address] MCV (mean corpuscular volume ) determinationon 09-02-2024 MCV (RBC) [Entitic vol] 87.7 fL 81-99 [facility] Mean corpuscular hemoglobin (MCH) determinationon 09-02-2024 MCH (RBC) [Entitic mass] 29.2 pg 27.0-32.0 [facility] Mean corpuscular hemoglobin concentration (MCHC) determinationon 09-02-2024 MCHC (RBC) [Mass/Vol] 33.3 g/dL 32-36 [facility] Mean platelet volume determi nationon 09-02-2024 Platelet mean volume (Bld) [Entitic vol] 10.2 fL 6.2-12.0 [facility] Platelet counton 09-02-2024 Platelets (Bld) [#/Vol] 357 10*3/uL 150-450 [facility] Potassium measurement (mass/ volume)on 09-02-2024 Potassium (Unsp spec) [Mass/Vol] 4.3 mmol/L 3.3-5.1 [facility] RBC Auto (Bld) [#/Vol]on RBC (Bld) [#/Vol] 4.65 10*6/uL 4.2-5.4 [facility] Screening total cholesterol/ high density lipoprotein (HDL) cholesterol ratioon 09-02-2024 Cholesterol.total/Shelia sterol in HDL [Mass ratio] 3.90 {ratio} [facility] Serum DNA double strand anti body assay (units/volume)on 09-02-2024 DNA double strand Ab Qn (S) TNP [facility] Comment on above: Test not performed Serum Gabrielle Varghese virus cap zelda IgM antibody assay (units/volume)on 09-02-2024 EBV capsid IgM Qn (S) [arb'U]/mL 0.0-35.9 [facility] Comment on above: Negative <36.0 Equiv ocal 36.0 - 43.9 Positive >43.9 Serum Gabrielle Varghese virus nuc lear IgG antibody assay (units/volume)on 09-02-2024 EBV nuclear IgG Qn (S) < 18.0 U/mL 0.0-17.9 [facility] Comment on above: Negative <18.0 Equiv ocal 18.0 - 21.9 Positive >21.9 Serum Scl-70 antibody assay (units/volume)on 09-02-2024 SCL-70 extractable nuclear Ab Qn (S) TNP [facility] Comment on above: Test not performed Serum West Nile virus IgG an tibody detection by immunoassayon 09-02-2024 West Nile virus IgG IA Ql (S) Negative Negative [facility] Serum West Nile virus IgM an tibody assayon 09-02-2024 West Nile virus IgM IA Qn (S) Negative Negative [facility] Serum creatinine measurement (mass/volume)on 09-02-2024 Creatinine [Mass/Vol] 0.61 mg/dL Low 0.70-1.20 [facility] Serum globulin measurementon 09-02-2024 Globulin (S) [Mass/Vol] 3.3 g/dL 2.2-4.2 [facility] Serum glucose measurement (m ass/volume)on 09-02-2024 Glucose [Mass/Vol] 88 mg/dL 70-99 [facility] Serum or plasma C reactive p rotein measurement (mass/volume)on 09-02-2024 CRP [Mass/Vol] 7.53 mg/L High 0.0-3.0 [facility] Serum or plasma alanine holley otransferase (ALT) measurementon 09-02-2024 ALT [Catalytic activity/Vol] 39 U/L High <35 [facility] Serum or plasma albumin tracy urement (mass/volume)on 09-02-2024 Albumin [Mass/Vol] 4.4 g/dL 3.5-5.0 [facility] Serum or plasma albumin/glob ulin mass ratioon 09-02-2024 Albumin/Globulin [Mass ratio] 1.3 {ratio} 0.9-2.4 [facility] Serum or plasma alkaline raudel sphatase measurementon 09-02-2024 ALP [Catalytic activity/Vol] 71 U/L 35-104 [facility] Serum or plasma calcium tracy urement (mass/volume)on 09-02-2024 Calcium [Mass/Vol] 9.7 mg/dL 7.6-11.0 [facility] Serum or plasma cholesterol in HDL measurement (mass/volume)on 09-02-2024 Cholesterol in HDL [Mass/Vol] 58 mg/dL >40 [facility] Comment on above: National Cholesterol Education Program (NCEP) guidelines:<40 mg/dL: Low HDL-cholesterol (major risk factor for CHD)>= 60 mg/dL: High HDL-cholesterol (negative risk factor for CHD)HDL-cholesterol is affected by a number of factors, e.g. smoking, exercise, hormones, sex and age. Serum or plasma cholesterol measurement (mass/volume)on 09-02-2024 Cholesterol [Mass/Vol] 226 mg/dL High <191 [facility] Comment on above: Cholesterol level, D esirable <200 mg/dLBorderline high cholesterol 200-239 mg/dLHigh cholesterol >=240 mg/dLRecommendations of the NCEP Adult Treatment Panel for the following risk-cutoff thresholds for the [place] Stateless population. Serum or plasma estradiol me asurement after follitropin dose (mass/volume)on 09-02-2024 E2 post dose follitropin [Mass/Vol] < 5.0 pg/mL [facility] Comment on above: FEMALES ADULT FEMALE : Premenopausal: 15-350 pg/mL(E2 levels vary widely through the menstrual cycle) Postmenopausal: <10 pg/mL SHAILESH STAGES MEAN AGE REFERENCE RANGES Stage I(>14 days and prepubertal) 7.1 years Undetectable-20 pg/mLL Stage II 10.5 years Undetectable-24 pg/mL Stage III 11.6 years Undetectable-60 pg/mL Stage IV 12.3 years 15-85 pg/mL Stage V 14.5 years 15-350 pg/mL Puberty onset (transition from Shailesh stage I to Shailesh stage II) occurs for girls at a median age of 10.5 (/- 2) years. There is evidence that it may occur up to 1 year earlier in obese girls and in girls.Progression through Shailesh stages is variable. Shailesh stage V (adult) should be reached by age 18. Serum or plasma urea nitroge n measurement (mass/volume)on 09-02-2024 Urea nitrogen [Mass/Vol] 10 mg/dL 4-19 [facility] Serum tissue transglutaminas e (tTG) IgA antibody assay (units/volume)on 09-02-2024 tTG IgA Qn (S) <2 U/mL 0-3 [facility] Comment on above: Negative 0 - 3 Weak Positive 4 - 10 Positive >10 Tissue Transglutaminase (tTG) has been identified as the endomysial antigen. Studies have demonstr- ated that endomysial IgA antibodies have over 99% specificity for gluten sensitive enteropathy.Performed at: - [address] [id number] Director: Lamberto Quiroz PhD, Phone: [phone] at: [facility] [address] [id number] Director: Iban Reagan MD, Phone: [phone] Sodium levelon 09-02-2024 Sodium [Moles/Vol] 137 mmol/L 133-145 [facility] T4 Free Directon 09-02-2024 T4 FREE DIRECT 1.00 ng/dL Normal 0.76-1.46 [facility] Comment on above: Performed By: #### L 501.9520, L101.9900, L506.0200, L501.6710, L3100.5450, L3410.2920, L3300.1750, L7000.5300, L7000.5000, L100.0500, L3410.9992, L3100.5850, L500.4100, L506.0400, L500.4050, L506.1001, L503.0106 #### [facility] [address] [place], [place], [id number] T4 freeon 09-02-2024 Free T4 [Mass/Vol] 1.00 ng/dL 0.76-1.46 [facility] TSH DL <= 0.005 mIU/L Qnon 0 09-02-2024 TSH Qn 1.390 uIU/mL 0.300-4.200 [facility] Thyroid Stim Hormone (TSH)on 09-02-2024 TSH 1.390 uIU/mL Normal 0.300-4.200 [facility] Comment on above: Performed By: #### L 501.9520, L101.9900, L506.0200, L501.6710, L3100.5450, L3410.2920, L3300.1750, L7000.5300, L7000.5000, L100.0500, L3410.9992, L3100.5850, L500.4100, L506.0400, L500.4050, L506.1001, L503.0106 #### [facility] [address] [place], [place], [id number] Total proteinon 09-02-2024 Protein [Mass/Vol] 7.8 g/dL 5.9-8.4 [facility] Triglycerides measurementon 09-02-2024 Triglyceride [Mass/Vol] 298 mg/dL High <199 [facility] Comment on above: The drugs N-Acetylcy steine and Metamizole may falsely depress this assay. Normal range: <150 mg/dLBorderline High: 150-199 mg/dLHigh: 200-499 mg/dLVery High: >500 mg/dL Vitamin B12on 09-02-2024 Cobalamin (Vitamin B12) [Mass/Vol] 161 pg/mL Low 180-914 [facility] Comment on above: Performed By: #### L 501.9520, L101.9900, L506.0200, L501.6710, L3100.5450, L3410.2920, L3300.1750, L7000.5300, L7000.5000, L100.0500, L3410.9992, L3100.5850, L500.4100, L506.0400, L500.4050, L506.1001, L503.0106 #### [facility] [address] [place], [place], [id number] Vitamin B12 ser/plason 09-02 Cobalamin (Vitamin B12) [Mass/Vol] 161 pg/mL Low 180-914 [facility] Vitamin D,25 Hydroxyon 09-02 Vitamin D 25-OH 25.3 ng/mL Low 30-100 [facility] Comment on above: Result Comment: Jazmín min D Status Deficiency: <20 ng/mL (50nmol/L) Insufficiency: 20-30 ng/mL (50-75 nmol/L) Sufficiency: 30-100 ng/mL (75-250 nmol/L) Toxicity: >100 ng/mL (>250 nmol/L) Performed By: #### L 501.9520, L101.9900, L506.0200, L501.6710, L3100.5450, L3410.2920, L3300.1750, L7000.5300, L7000.5000, L100.0500, L3410.9992, L3100.5850, L500.4100, L506.0400, L500.4050, L506.1001, L503.0106 #### [facility] [address] [place], [address] White blood cell (WBC) count on 09-02-2024 WBC (Bld) [#/Vol] 6.7 10*3/uL 4.4-11.0 [facility] 29on 07-19-2024 29 Addended by: ZARINA SLAUGHTER on: 07/21/2024 06:47 AM Modules accepted: Orders Normal [facility] Office Visiton 07-19-2024 Follow-up visit [id number] Mary Curiel 2000 F Date Provider Department Center 07/19/2024 [id number] SLAUGHTER [facility] NE[facility]O P None Family History Problem Relation Age of Onset Depression Mother Stroke Maternal Grandfather Stroke Mother's Brother Family Status - Relation Status Age at Mother Maternal Grandfather Mother's Brother Level of Service:75690 AL OFFICE/OUTPATIENT ESTABLISHED MOD MDM 30 MIN Reason for Visit and Comments: Migraine [269643] [facility] Progress Noteon 07-19-2024 Progress Note Department of Neurological Sciences Visit Note CHIEF COMPLAINT: Chief Complaint Patient presents with Migraine Main diagnoses: Chronic migraine without aura, intractable HISTORY OF PRESENT ILLNESS: The patient is a 23 y.o. female today presents to the Neurology clinic with history of chronic migraine without aura, intractable. The patient presented to the neurology clinic accompanied by her father. Patient had a diagnosis of chronic migraine without aura, intractable. In addition, patient appeared to have a diagnosis of functional neurological symptoms with headache. Patient reports that she is still have headaches on a daily basis. Reports that she have currently a headache but she does not appear to be in any pain. The past 18 months patient had tried multiple preventative as well as abortive medications without any significant success. Patient initially was treated at [facility] headache unit where she received treatment with Adderall, topiramate, Pamelor, amovig and Botox injection. Patient did not have any significant improvement in headache frequency and severity. Approximately 6 months ago patient was referred for 2 hours here at [facility] neurology. Again patient was complaining of daily headache. Tried different treatments both preventative as well as abortive treatments unsuccessfully. Patient even had tried vagal stimulation with Cefaly as well as Nerivio. From June after the last clinic visit patient was referred to ENT as well as rheumatology for evaluation. Patient evaluation were unremarkable. No significant diagnosis was made. Since we are now progressing in terms of controlling patient's headache I suggest the patient and her father to refer her to a tertiary headache center such as [facility]. Patient agree with this suggestion. I think she will benefit from a team approach to her headaches especially with psychology and psychiatric involved. Secundary diagnoses: Functional neurological symptoms with headaches Medications: Current Medications[1] Allergies: Milk (cow) Social History: Social History Socioeconomic History Marital status: Single Spouse name: Not on file Number of children: Not on file Years of education: Not on file Highest education level: Not on file Occupational History Not on file Tobacco Use Smoking status: Never Smokeless tobacco: Never Substance and Sexual Activity Alcohol use: Never Drug use: Never Sexual activity: Never Other Topics Concern Not on file Social History Narrative Not on file Social Drivers of Health Financial Resource Strain: Not on file Food Insecurity: Not on file Transportation Needs: Not on file Physical Activity: Not on file Stress: Not on file Social Connections: Not on file Intimate Partner Violence: Not on file Housing Stability: Not on file Family History: Family History[2] REVIEW OF SYSTEMS: Review of Systems Constitutional: Negative. HENT: Negative. Phonophobia. Eyes: Positive for photophobia and visual disturbance. Respiratory: Negative. Cardiovascular: Positive for palpitations. Gastrointestinal: Positive for nausea and vomiting. Endocrine: Negative. Genitourinary: Negative. Musculoskeletal: Positive for neck stiffness. Skin: Negative. Allergic/Immunologic : Negative. Neurological: Positive for dizziness, light-headedness and headaches. Hematological: Negative. Psychiatric/Behavior al: Negative. PHYSICAL EXAM: Vitals: BP 123/67 (BP Location: Right arm, Patient Position: Sitting, BP Cuff Size: Adult) Pulse 76 Wt 127 lb 8 oz (57.8 kg) BMI 22.59 kg/m? Physical Exam Constitutional: Appearance: Normal appearance. HENT: Head: Normocephalic and atraumatic. Nose: Nose normal. Mouth/Throat: Mouth: Mucous membranes are moist. Pharynx: Oropharynx is clear. Eyes: General: Vision grossly intact. Gaze aligned appropriately. Extraocular Movements: Extraocular movements intact. Conjunctiva/sclera: Conjunctivae normal. Pupils: Pupils are equal, round, and reactive to light. Neck: Trachea: Trachea and phonation normal. Cardiovascular: Rate and Rhythm: Normal rate and regular rhythm. Pulses: Normal pulses. Heart sounds: Normal heart sounds. Pulmonary: Effort: Pulmonary effort is normal. Breath sounds: Normal breath sounds. Abdominal: General: Abdomen is flat. Bowel sounds are normal. Palpations: Abdomen is soft. Musculoskeletal: General: Normal range of motion. Cervical back: Normal range of motion and neck supple. Skin: General: Skin is warm and dry. Neurological: General: No focal deficit present. Mental Status: She is alert and oriented to person, place, and time. Mental status is at baseline. Cranial Nerves: Cranial nerves 2-12 are intact. Deep Tendon Reflexes: Reflexes are normal and symmetric. Reflex Scores: Tricep reflexes are 2+ on the right side and 2+ on the left side. (more content not included)... Normal [facility] Progress Note Error Normal [facility] MAIRA + Protein Elect, Serumon 04-21-2024 Albumin [Mass/Vol] 4.1 g/dL Normal 2.9-4.4 [facility] Comment on above: Order Comment: N Performed By: #### L 501.9520, L101.9900, L506.0200, L501.6710, L3100.5450, L3410.2920, L3300.1750, L7000.5300, L7000.5000, L100.0500, L3410.9992, L3100.5850, L500.4100, L506.0400, L500.4050, L506.1001, L503.0106 #### [facility] [address] [place], [place], [id number] Albumin/Globulin [Mass ratio] 1.4 {ratio} Normal 0.7-1.7 [facility] Comment on above: Order Comment: N Performed By: #### L 501.9520, L101.9900, L506.0200, L501.6710, L3100.5450, L3410.2920, L3300.1750, L7000.5300, L7000.5000, L100.0500, L3410.9992, L3100.5850, L500.4100, L506.0400, L500.4050, L506.1001, L503.0106 #### [facility] [address] [place], [address] TFQGW-6-PEPH 0.2 g/dL Normal 0.0-0.4 [facility] Comment on above: Order Comment: N Performed By: #### L 501.9520, L101.9900, L506.0200, L501.6710, L3100.5450, L3410.2920, L3300.1750, L7000.5300, L7000.5000, L100.0500, L3410.9992, L3100.5850, L500.4100, L506.0400, L500.4050, L506.1001, L503.0106 #### [facility] [address] [place], [address] (138) VMRME-7-IVCO 0.9 g/dL Normal 0.4-1.0 [facility] Comment on above: Order Comment: N Performed By: #### L 501.9520, L101.9900, L506.0200, L501.6710, L3100.5450, L3410.2920, L3300.1750, L7000.5300, L7000.5000, L100.0500, L3410.9992, L3100.5850, L500.4100, L506.0400, L500.4050, L506.1001, L503.0106 #### [facility] [address] [place], [address] BETA GLOBULIN 1.1 g/dL Normal 0.7-1.3 [facility] Comment on above: Order Comment: N Performed By: #### L 501.9520, L101.9900, L506.0200, L501.6710, L3100.5450, L3410.2920, L3300.1750, L7000.5300, L7000.5000, L100.0500, L3410.9992, L3100.5850, L500.4100, L506.0400, L500.4050, L506.1001, L503.0106 #### [facility] [address] [place], [address] GAMMA GLOBULIN 0.8 g/dL Normal 0.4-1.8 [facility] Comment on above: Order Comment: N Performed By: #### L 501.9520, L101.9900, L506.0200, L501.6710, L3100.5450, L3410.2920, L3300.1750, L7000.5300, L7000.5000, L100.0500, L3410.9992, L3100.5850, L500.4100, L506.0400, L500.4050, L506.1001, L503.0106 #### [facility] [address] [place], [address] Globulin (S) [Mass/Vol] 3.0 g/dL Normal 2.2-3.9 [facility] Comment on above: Order Comment: N Performed By: #### L 501.9520, L101.9900, L506.0200, L501.6710, L3100.5450, L3410.2920, L3300.1750, L7000.5300, L7000.5000, L100.0500, L3410.9992, L3100.5850, L500.4100, L506.0400, L500.4050, L506.1001, L503.0106 #### [facility] [address] [place], [place], [id number] (947) MAIRA RESULT,S Comment Normal . [facility] Comment on above: Order Comment: N Result Comment: No m onoclonality detected. Performed By: #### L 501.9520, L101.9900, L506.0200, L501.6710, L3100.5450, L3410.2920, L3300.1750, L7000.5300, L7000.5000, L100.0500, L3410.9992, L3100.5850, L500.4100, L506.0400, L500.4050, L506.1001, L503.0106 #### [facility] [address] [place], [place], [id number] IMMUNOGLOB A QN 124 mg/dL Normal 87-352 [facility] Comment on above: Order Comment: N Performed By: #### L 501.9520, L101.9900, L506.0200, L501.6710, L3100.5450, L3410.2920, L3300.1750, L7000.5300, L7000.5000, L100.0500, L3410.9992, L3100.5850, L500.4100, L506.0400, L500.4050, L506.1001, L503.0106 #### [facility] [address] [place], [place], [id number] IMMUNOGLOB G QN 924 mg/dL Normal 586-1602 [facility] Comment on above: Order Comment: N Performed By: #### L 501.9520, L101.9900, L506.0200, L501.6710, L3100.5450, L3410.2920, L3300.1750, L7000.5300, L7000.5000, L100.0500, L3410.9992, L3100.5850, L500.4100, L506.0400, L500.4050, L506.1001, L503.0106 #### [facility] [address] [place], [address] IMMUNOGLOB M QN 138 mg/dL Normal 26-217 [facility] Comment on above: Order Comment: N Performed By: #### L 501.9520, L101.9900, L506.0200, L501.6710, L3100.5450, L3410.2920, L3300.1750, L7000.5300, L7000.5000, L100.0500, L3410.9992, L3100.5850, L500.4100, L506.0400, L500.4050, L506.1001, L503.0106 #### [facility] [address] [place], [address] M-Ger Not Observed Normal Not Observed [facility] Comment on above: Order Comment: N Performed By: #### L 501.9520, L101.9900, L506.0200, L501.6710, L3100.5450, L3410.2920, L3300.1750, L7000.5300, L7000.5000, L100.0500, L3410.9992, L3100.5850, L500.4100, L506.0400, L500.4050, L506.1001, L503.0106 #### [facility] [address] [place], [address] NOTE: Comment Normal . [facility] Comment on above: Order Comment: N Result Comment: Prot ein electrophoresis scan will follow via computer, mail, or signal tester delivery. Performed at: [address], [place] [id number] Overlay Plastician: Lamberto Quiroz PhD, Phone: [phone] Performed By: #### L 501.9520, L101.9900, L506.0200, L501.6710, L3100.5450, L3410.2920, L3300.1750, L7000.5300, L7000.5000, L100.0500, L3410.9992, L3100.5850, L500.4100, L506.0400, L500.4050, L506.1001, L503.0106 #### [facility] [address] [place], [address] Protein [Mass/Vol] 7.1 g/dL Normal 6.0-8.5 [facility] Comment on above: Order Comment: N Performed By: #### L 501.9520, L101.9900, L506.0200, L501.6710, L3100.5450, L3410.2920, L3300.1750, L7000.5300, L7000.5000, L100.0500, L3410.9992, L3100.5850, L500.4100, L506.0400, L500.4050, L506.1001, L503.0106 #### [facility] [address] [place], [address] Addendum DocumentOrdered By: Zarina Simeon on 04-19-2024 Serum Immunofixation Comments Comment . [facility] Comment on above: Protein electrophore sis scan will follow via computer,mail, or signal tester delivery.Performed at: - [facility] [id number] Director: Lamberto Quiroz PhD, Phone: [phone] Albumin Elph [Mass/Vol]Order ed By: Zarina Simeon on 04-19-2024 Albumin [Mass/Vol] 4.1 g/dL 2.9-4.4 [facility] Alpha 1 globulin Elph [Mass/ Vol]Ordered By: Zarina Simeon on 04-19-2024 Vsbkg-1-Ysopwxcav (MAIRA) 0.2 g/dL 0.0-0.4 [facility] Efxqf-0-Kbtdfllqf (MAIRA) 0.9 g/dL 0.4-1.0 [facility] Beta globulin Elph [Mass/Vol ]Ordered By: Zarina Simeon on 04-19-2024 Beta-Globulins (MAIRA) 1.1 g/dL 0.7-1.3 [facility] Gamma globulin Elph [Mass/Vo l]Ordered By: Zarina Simeon on 04-19-2024 Gamma Globulins (MAIRA) 0.8 g/dL 0.4-1.8 [facility] IgA [Mass/Vol]Ordered By: Angeline Simeon on 04-19-2024 Immunoglobulin A 124 mg/dL 87-352 [facility] IgG [Mass/Vol]Ordered By: Angeline Simeon on 04-19-2024 Immunoglobulin G 924 mg/dL 586-1602 [facility] Immunoglobulin M measurement Ordered By: Zarina Simeon on 04-19-2024 Immunoglobulin M 138 mg/dL 26-217 [facility] Interpretation IEP [Interp]O rdered By: Zarina Simeon on 04-19-2024 Immunofixation Screen Comment . [facility] Comment on above: No monoclonality det ected. Protein Fractions Immunofixa tion Marck [Interp]Ordered By: Zarina Simeon on 04-19-2024 M-Ger (MAIRA) Not Observed g/dL Not Observed [facility] Serum albumin/globulin ratio Ordered By: Zarina Simeon on 04-19-2024 Albumin/Globulin (MAIRA) 1.4 0.7-1.7 [facility] Serum globulin measurement ( mass/volume)Ordered By: Zarina Simeon on 04-19-2024 Globulin (S) [Mass/Vol] 3.0 g/dL 2.2-3.9 [facility] Serum or plasma protein tracy urement (mass/volume)Ordered By: Zarina Simeon on 04-19-2024 Protein [Mass/Vol] 7.1 g/dL 6.0-8.5 [facility] Office Visiton 04-16-2024 Follow-up visit [id number] Mary Curiel 2000 F Date Provider Department Center 04/16/2024 ZARINA CONRAD [facility] NEURO P None Family History Problem Relation Age of Onset Depression Mother Stroke Maternal Grandfather Stroke Mother's Brother Family Status - Relation Status Age at Mother Maternal Grandfather Mother's Brother Level of Service:98407 AL OFFICE/OUTPATIENT ESTABLISHED LOW MDM 20 MIN Reason for Visit and Comments: Follow-up [787761] Migraine [240249] Normal [facility] Progress Noteon 04-16-2024 Progress Note 1. Department of Neurological Sciences Visit Note CHIEF COMPLAINT: Chief Complaint Patient presents with Follow-up Migraine Main diagnoses: Chronic migraine without aura, intractable HISTORY OF PRESENT ILLNESS: The patient is a 23 y.o. female today presents to the Neurology clinic with history of chronic migraine without aura, intractable. Today patient presented to the neurology clinic for a follow-up visit. Patient had a diagnosis of chronic migraine without aura, intractable. After her last clinic visit to the neurology clinic patient had Botox injections into the scalp and posterior cervical muscles. Unfortunately today patient presented she reports that she does not have any significant improvement in her headaches. Patient complaining of severe headaches when she does not show any signs of severe pain. As a matter of hide patient is laughing most of the time during the clinic visit. Prior to [facility] patient was evaluated at [facility] were she has not complete workup and multiple preventative treatments also without any improvement. Patient reports that perhaps she needs to be evaluated by defense analyst or ENT. I fully agree with the patient.Today we are going to obtain laboratory testing for the most common autoimmune diseases. And then we will be able to refer patient to rheumatology. Secundary diagnoses: Depression, anxiety Medications: Current Outpatient Medications Medication Sig Dispense Refill drospirenone-ethinyl estradiol (Zumandimine) 3-0.03 MG tablet Take 1 tablet by mouth daily. escitalopram (Lexapro) 20 MG tablet Take 20 mg by mouth daily. ondansetron (Zofran) 4 MG tablet Take 4 mg by mouth every 8 hours as needed for nausea or vomiting. No current facility-administere d medications for this visit. Allergies: Milk (cow) Social History: Social History Socioeconomic History Marital status: Single Spouse name: Not on file Number of children: Not on file Years of education: Not on file Highest education level: Not on file Occupational History Not on file Tobacco Use Smoking status: Never Smokeless tobacco: Never Substance and Sexual Activity Alcohol use: Never Drug use: Never Sexual activity: Never Other Topics Concern Not on file Social History Narrative Not on file Social Drivers of Health Financial Resource Strain: Not on file Food Insecurity: Not on file Transportation Needs: Not on file Physical Activity: Not on file Stress: Not on file Social Connections: Not on file Intimate Partner Violence: Not on file Housing Stability: Not on file Family History: Family History Problem Relation Name Age of Onset Depression Mother Tory Stroke Maternal Grandfather Kenney Stroke Mother's Brother Arron REVIEW OF SYSTEMS: Review of Systems Constitutional: Negative. HENT: Negative. Phonophobia. Eyes: Positive for photophobia and visual disturbance. Respiratory: Negative. Cardiovascular: Positive for palpitations. Gastrointestinal: Positive for nausea and vomiting. Endocrine: Negative. Genitourinary: Negative. Musculoskeletal: Positive for neck stiffness. Skin: Negative. Allergic/Immunologic : Negative. Neurological: Positive for dizziness, light-headedness and headaches. Hematological: Negative. Psychiatric/Behavior al: Negative. PHYSICAL EXAM: Vitals: BP 129/76 (BP Location: Left arm, Patient Position: Sitting, BP Cuff Size: Adult) Pulse 79 Ht 5' 3 (1.6 m) Wt 123 lb (55.8 kg) BMI 21.79 kg/m? Physical Exam Constitutional: Appearance: Normal appearance. HENT: Head: Normocephalic and atraumatic. Nose: Nose normal. Mouth/Throat: Mouth: Mucous membranes are moist. Pharynx: Oropharynx is clear. Eyes: General: Vision grossly intact. Gaze aligned appropriately. Extraocular Movements: Extraocular movements intact. Conjunctiva/sclera: Conjunctivae normal. Pupils: Pupils are equal, round, and reactive to light. Neck: Trachea: Trachea and phonation normal. Cardiovascular: Rate and Rhythm: Normal rate and regular rhythm. Pulses: Normal pulses. Heart sounds: Normal heart sounds. Pulmonary: Effort: Pulmonary effort is normal. Breath sounds: Normal breath sounds. Abdominal: General: Abdomen is flat. Bowel sounds are normal. Palpations: Abdomen is soft. Musculoskeletal: General: Normal range of motion. Cervical back: Normal range of motion and neck supple. Skin: General: Skin is warm and dry. Neurological: General: No focal deficit present. Mental Status: She is alert and oriented to person, place, and time. Mental status is at baseline. Cranial Nerves: Cranial nerves 2-12 are intact. Deep Tendon Reflexes: Reflexes are normal and symmetric. Reflex Scores: Tricep reflexes are 2+ on the right side and 2+ on the left side. Bicep reflexes are 2+ on the right side and 2+ on the left side. Brachioradialis reflexes are 2+ on the right side and 2+ (more content not included)... Normal [facility] Office Visiton 03-05-2024 Follow-up visit [id number] Mary Curiel 2000 F Date Provider Department Center 03/05/2024 ZARINA CONRAD [facility] NEURO P None Family History Problem Relation Age of Onset Depression Mother Stroke Maternal Grandfather Stroke Mother's Brother Family Status - Relation Status Age at Mother Maternal Grandfather Mother's Brother Level of Service:95217 AL OFFICE/OUTPATIENT ESTABLISHED LOW MDM 20 MIN (25) Reason for Visit and Comments: Follow-up [943269] Normal [facility] Progress Noteon 03-05-2024 Progress Note Department of Neurological Sciences Visit Note CHIEF COMPLAINT: Chief Complaint Patient presents with Follow-up Main diagnoses: Chronic migraine without aura, intractable HISTORY OF PRESENT ILLNESS: The patient is a 23 y.o. female today presents to the Neurology clinic with chronic migraine without aura, intractable. Today patient presented to the neurology clinic for a follow-up visit. Patient reports that Qulipta is not working well. She is still have headaches almost on a daily basis. Patient has a long history of chronic migraine without aura. [facility]. Subsequently patient transferred to [facility] and now she follows up at [facility]. Patient has at least 4 days with headache a month. In the past patient had received treatment with almost all preventive medication. Patient recalled that at 1 time she received further treatment with Botox injections and she did well. Since patient has failed almost all preventive medications we are going to repeat the treatment with Tommy we will be using a free sample of Botox 200 units. Then we will see whether or not patient had a better response than with Qulipta. Secundary diagnoses: None Medications: Current Outpatient Medications Medication Sig Dispense Refill drospirenone-ethinyl estradiol (Zumandimine) 3-0.03 MG tablet Take 1 tablet by mouth daily. escitalopram (Lexapro) 20 MG tablet Take 20 mg by mouth daily. No current facility-administere d medications for this visit. Allergies: Milk (cow) Social History: Social History Socioeconomic History Marital status: Single Spouse name: Not on file Number of children: Not on file Years of education: Not on file Highest education level: Not on file Occupational History Not on file Tobacco Use Smoking status: Never Smokeless tobacco: Never Substance and Sexual Activity Alcohol use: Never Drug use: Never Sexual activity: Never Other Topics Concern Not on file Social History Narrative Not on file Social Drivers of Health Financial Resource Strain: Not on file Food Insecurity: Not on file Transportation Needs: Not on file Physical Activity: Not on file Stress: Not on file Social Connections: Not on file Intimate Partner Violence: Not on file Housing Stability: Not on file Family History: Family History Problem Relation Name Age of Onset Depression Mother Tory Stroke Maternal Grandfather Kenney Stroke Mother's Brother Arron REVIEW OF SYSTEMS: Review of Systems Constitutional: Positive for fatigue. HENT: Negative. Phonophobia Eyes: Positive for photophobia and visual disturbance. Respiratory: Negative. Cardiovascular: Positive for palpitations. Gastrointestinal: Positive for nausea and vomiting. Endocrine: Negative. Genitourinary: Negative. Musculoskeletal: Positive for myalgias, neck pain and neck stiffness. Skin: Negative. Allergic/Immunologic : Negative. Neurological: Positive for dizziness, light-headedness and headaches. Hematological: Negative. Psychiatric/Behavior al: Positive for decreased concentration. The patient is nervous/anxious. PHYSICAL EXAM: Vitals: BP 127/67 (BP Location: Right arm) Pulse 76 Temp 36.7 ?C (98.1 ?F) (Infrared) Ht 5' 3 (1.6 m) Wt 123 lb (55.8 kg) BMI 21.79 kg/m? Physical Exam Constitutional: Appearance: Normal appearance. HENT: Head: Normocephalic and atraumatic. Nose: Nose normal. Mouth/Throat: Mouth: Mucous membranes are moist. Pharynx: Oropharynx is clear. Eyes: General: Vision grossly intact. Gaze aligned appropriately. Extraocular Movements: Extraocular movements intact. Conjunctiva/sclera: Conjunctivae normal. Pupils: Pupils are equal, round, and reactive to light. Neck: Trachea: Trachea and phonation normal. Cardiovascular: Rate and Rhythm: Normal rate and regular rhythm. Pulses: Normal pulses. Heart sounds: Normal heart sounds. Pulmonary: Effort: Pulmonary effort is normal. Breath sounds: Normal breath sounds. Abdominal: General: Abdomen is flat. Bowel sounds are normal. Palpations: Abdomen is soft. Musculoskeletal: General: Normal range of motion. Cervical back: Normal range of motion and neck supple. Skin: General: Skin is warm and dry. Neurological: General: No focal deficit present. Mental Status: She is alert and oriented to person, place, and time. Mental status is at baseline. Cranial Nerves: Cranial nerves 2-12 are intact. Coordination: Rapid alternating movements normal. Deep Tendon Reflexes: Reflexes are normal and symmetric. Reflex Scores: Tricep reflexes are 2+ on the right side and 2+ on the left side. Bicep reflexes are 2+ on the right side and 2+ on the left side. Brachioradialis reflexes are 2+ on the right side and 2+ on the left side. Patellar reflexes are 2+ on the right side and 2+ on the left side. Achilles reflexes are 2+ on the right side and 2+ (more content not included)... Normal [facility] Progress Note Administrations This Visit onabotulinumtoxin A (BOTOX) injection 200 Units Admin Date 03/05/2024 Action Given Dose 200 Units Route IntraMUSCular Site Other [place] [facility] [place] Provider: Zarina Slaughter MD [facility]:[id number] Lot#: [id number] Baker Second: allergan Patient Supplied?: NO, FREE SAMPLE Normal [facility] Office Visiton 02-05-2024 Follow-up visit [id number] Mary Curiel 2000 F Date Provider Department Center 02/05/2024 [id number]-ZYSGIRUUZARINA SLAUGHTER [facility] NEURO P None No family history on file Level of Service:43967 AL OFFICE/OUTPATIENT NEW MODERATE MDM 45 MINUTES Reason for Visit and Comments: New Patient [542] - Chronic daily headaches Normal [facility] Progress Noteon 02-05-2024 Progress Note Botox in Sep. There was not much of a difference. Normal [facility] Progress Note Department of Neurological Sciences Initial Consult Note CHIEF COMPLAINT: Chief Complaint Patient presents with New Patient Chronic daily headaches Reason for Consult: Chronic daily headache. HISTORY OF PRESENT ILLNESS: The patient is a 23 y.o. female who presents with history of chronic daily headache, patient presents to the neurology clinic for evaluation and treatment of her chronic daily headache. Patient reports that she has a long history of headaches. Her headaches is*approximately 7 years ago. Initially patient was treated at [facility]. Subsequently patient transferred to [facility] for medication for further evaluation and treatment. Over the past 7 years patient has been treated for multiple preventive medications including amitriptyline, Inderal, topiramate, Ajovy, and 1 treatment with Botox injections. Patient reports that no of these medications has improved her headaches at all. She denied any side effects from medication. Her headaches usually are unilateral or bilateral. The pain is a throbbing. Patient denies any significant photophobia or phonophobia. Patient reports that only occasionally she developed nausea. Patient reports that headache almost every single day every month. At the time her daily headaches are quite severe sometimes are very mild. So far patient has not responded to any treatment for migraine headaches. Patient rates her pain levels between 5-7 patient does not appear to be in any severe pain. Patient denied taking any orals. There is family history of migraine headaches parents younger sister appear to have migraine headaches. Patient denied any focal weakness or numbness. Patient normally have headache on a daily basis as well as has 1 time. Patient reports that in the past she has an MRI of the brain. We have a copy of the report from 2018 which was unremarkable. Since then patient has had no any new symptoms associated with her headaches. There is no significant correlation between patient behavior and the severity of her headaches. Past Medical History: No past medical history on file. Past Surgical History: No past surgical history on file. Medications: Current Outpatient Medications Medication Sig Dispense Refill drospirenone-ethinyl estradiol (Zumandimine) 3-0.03 MG tablet Take 1 tablet by mouth daily. escitalopram (Lexapro) 20 MG tablet Take 20 mg by mouth daily. No current facility-administere d medications for this visit. Allergies: Milk (cow) Social History: Social History Socioeconomic History Marital status: Single Spouse name: Not on file Number of children: Not on file Years of education: Not on file Highest education level: Not on file Occupational History Not on file Tobacco Use Smoking status: Not on file Smokeless tobacco: Not on file Substance and Sexual Activity Alcohol use: Not on file Drug use: Not on file Sexual activity: Not on file Other Topics Concern Not on file Social History Narrative Not on file Social Drivers of Health Financial Resource Strain: Not on file Food Insecurity: Not on file Transportation Needs: Not on file Physical Activity: Not on file Stress: Not on file Social Connections: Not on file Intimate Partner Violence: Not on file Housing Stability: Not on file Family History: No family history on file. REVIEW OF SYSTEMS: Review of Systems PHYSICAL EXAM: Vitals: BP 125/69 Pulse 85 Temp 36 ?C (96.8 ?F) Wt 123 lb 3.2 oz (55.9 kg) Physical Exam Constitutional: Appearance: Normal appearance. HENT: Head: Normocephalic and atraumatic. Nose: Nose normal. Mouth/Throat: Mouth: Mucous membranes are moist. Pharynx: Oropharynx is clear. Eyes: General: Vision grossly intact. Gaze aligned appropriately. Extraocular Movements: Extraocular movements intact. Conjunctiva/sclera: Conjunctivae normal. Pupils: Pupils are equal, round, and reactive to light. Neck: Trachea: Trachea and phonation normal. Cardiovascular: Rate and Rhythm: Normal rate and regular rhythm. Pulses: Normal pulses. Heart sounds: Normal heart sounds. Pulmonary: Effort: Pulmonary effort is normal. Breath sounds: Normal breath sounds. Abdominal: General: Abdomen is flat. Bowel sounds are normal. Palpations: Abdomen is soft. Musculoskeletal: General: Normal range of motion. Cervical back: Normal range of motion and neck supple. Skin: General: Skin is warm and dry. Neurological: General: No focal deficit present. Mental Status: She is alert and oriented to person, place, and time. Mental status is at baseline. Cranial Nerves: Cranial nerves 2-12 are intact. Coordination: Rapid alternating movements normal. Deep Tendon Reflexes: Reflexes are normal and symmetric. Reflex Scores: Tricep reflexes are 2+ on the right side and 2+ on the left side. Bicep reflexes are 2+ on the right side and 2+ on the left side. Brachiora (more content not included)... Normal [facility] 36on 12-16-2023 36 I left detailed message on patients VM that FORGE TENDER Gale Yañez can see for her FORGE TENDER appointment. If patient calls back please schedule a FORGE TENDER appointment on Gale's schedule. If patient does not want to see a FORGE TENDER then she will have to wait for scheduled appointment with Dr. Slaughter. [facility] 36on 12-12-2023 36 Records are scanned into chart. Forwarding to FORGE TENDER Gale to advise if she can see this new patient. [facility] 36 Name of Caller: Carlos Alberto (Mother) Contact Reason for Appointment: Patient is scheduled 02/04. However, her botox is due towards the end of December. They are requesting patient be seen sooner so she can have authorization from insurance for Botox before she is due. Please advise. Office Name: Neurology Patient did give verbal consent to speak with Mother. Patient is in college and cannot always access her phone. [facility] 36on 12-11-2023 36 Attempted to call but was on hold for 10 minutes. We do not have an email for the records. Will Call Harpreet and provide fax number [facility] 36on 12-10-2023 36 Name of caller: Harpreet Contact phone number: [phone] Relationship to Patient: Father Provider: Dr. Slaughter Practice: [facility] Chief Complaint/Reason for Call: Harpreet states that Mary's previous neurologist with [facility] is requesting to send records to the office for Mary via a secure email to the office if possible and is requesting an address to send to. He states their phone number is [phone] for the [facility], Dr. Jason Balbuena. Harpreet also states he will be reaching out to Mary's primary care provider for a referral to the office as well. Please be advised. Best time of day caller can be reached: Any Patient advised that office/PCP has 24-48 business hours to return their call: Yes [facility] B TESTO SHBG, FEM, CHIL [CCL ]on 09-18-2023 Sex Hormon Bind Glb 53 nmol/L Normal 25-122 [facility] Comment on above: Result Comment: REFE RENCE INTERVAL: Sex Hormone Binding Globulin Access complete set of age- and/or gender-specific reference intervals for this test in the [facility] Test Directory ([email or web address]). Performed By: #### 2 99240 #### [address] [address] Testosterone [Mass/Vol] 29 ng/dL Normal 9-55 [facility] Comment on above: Result Comment: REFE RENCE INTERVAL: Testosterone by Poultry Husbandry Worker Females Premenopausal 9-55 ng/dL Postmenopausal 5-32 ng/dL INTERPRETIVE INFORMATION: Testosterone by Poultry Husbandry Worker Free or bioavailable testosterone measurements may provide supportive information. For individuals on testosterone-suppressing hormone therapies (e.g., antiandrogens or estrogens), refer to cisgender female reference intervals. For a complete set of all established reference intervals, refer to [employer]/Tests/Pub/[id number]. This test was developed and its performance characteristics determined by [facility]. It has not been cleared or approved by the US Food and Drug Administration. This test was performed in a CLIA certified laboratory and is intended for clinical purposes. Performed By: #### 2 86643 #### [address] [address] Testosterone bioavailable 10.9 ng/dL Normal 2.2-20.6 [facility] Comment on above: Result Comment: REFE RENCE INTERVAL: Testosterone, Bioavailable by Poultry Husbandry Worker Females: Postmenopausal: 1.5 - 9.4 ng/dL INTERPRETIVE INFORMATION: Testosterone, Bioavailable by Poultry Husbandry Worker Bioavailable testosterone concentration is calculated using total testosterone (measured by mass spectrometry) and the binding constant of testosterone and sex hormone-binding globulin (SHBG) and/or albumin. For individuals on testosterone-suppressing hormone therapies (e.g., antiandrogens or estrogens), refer to cisgender female reference intervals. For a complete set of all established reference intervals, refer to [employer]/Tests/Pub/[id number]. [address] [address] Arya Alcantar III, M.D. [id number] Performed By: #### 2 53836 #### [place] [id number] Testosterone Free 3.5 pg/mL Normal 0.8-7.4 [facility] Comment on above: Result Comment: REFE RENCE INTERVAL: Testosterone, Free by Poultry Husbandry Worker Females Postmenopausal: 0.6 - 3.8 pg/mL INTERPRETIVE INFORMATION: Testosterone, Free by Poultry Husbandry Worker Free testosterone concentration is calculated using total testosterone (measured by mass spectrometry) and the binding constant of testosterone and sex hormone-binding globulin (SHBG). For individuals on testosterone-suppressing hormone therapies (e.g., antiandrogens or estrogens), refer to cisgender female reference intervals. For a complete set of all established reference intervals, refer to [email or web address]/Pub/7328516. This test was developed and its performance characteristics determined by [facility]. It has not been cleared or approved by the US Food and Drug Administration. This test was performed in a CLIA certified laboratory and is intended for clinical purposes. Performed By: [facility] [address] [place] [address] Transportation Department Supervisor: Arthur Zaidi MD, PhD CLIA Number: [id number] Performed By: #### 2 61136 #### [address] [address] PROGESTERONE [CCL]on 024 PROGESTERONE [CCL] Normal [facility] Comment on above: Result Comment: _PRO GESTERONE [CCL]_ SEE SCANNED REPORT Performed By: #### 2 06269 #### [address] [address] ESTRADIOL-17B [CCL]on 2023 Estradiol-17B 127 pg/mL Normal [facility] Comment on above: Result Comment: This test is not suitable for patients receiving treatment with the drug Fulvestrant (Faslodex). The drug causes an interference leading to falsely elevated estradiol results. Menstrual cycle Estradiol reference ranges: Follicular : < 234 pg/mL Ovulation : 41 to 398 pg/mL Luteal : < 342 pg/mL Estradiol reference ranges vary by gestational period: First trimester : 154 to 3243 pg/mL Second trimester : 1561 to 12591 pg/mL Third trimester : 8285 to >12502 pg/mL Post-menopausal Estradiol reference range: < 41 pg/mL Reference: 1. Estradiol - E2 (Estradiol III) [package insert V 3.0 [place] Korean]. [facility], [place], [place], July [address]. [place] [address] Arya Alcantar III, M.D. [id number] Performed By: #### 2 82098 #### [facility],[address] [place] [address] BIOAVAIL TESTO/SHBG, FEM AND CHILDon 09-11-2023 SEX HORMONE BIND GLB 53 nmol/L Normal 25-122 [facility] Comment on above: Order Comment: Speci men Type: BLOOD SPECIMENOrdering Facility: [facility] Address: [address] [place] [address] Result Comment: REFE RENCE INTERVAL: Sex Hormone Binding Globulin Access complete set of age- and/or gender-specific reference intervals for this test in the [facility] Test Directory ([email or web address]). Performed By: #### B TSTFC ####[facility]OR[facility]IESCLIA [id number] [place] [address]#### 2839-9 ####[facility] LABCLIA [id number] [place] [address] [place] TESTO BIOAVAILABLE 10.9 ng/dL Normal 2.2-20.6 [facility] Comment on above: Order Comment: Speci men Type: BLOOD SPECIMENOrdering Facility: [facility] Address: [address] [place] [address] Result Comment: REFE RENCE INTERVAL: Testosterone, Bioavailable by Poultry Husbandry Worker Females: Postmenopausal: 1.5 - 9.4 ng/dL INTERPRETIVE INFORMATION: Testosterone, Bioavailable by Poultry Husbandry Worker Bioavailable testosterone concentration is calculated using total testosterone (measured by mass spectrometry) and the binding constant of testosterone and sex hormone-binding globulin (SHBG) and/or albumin. For individuals on testosterone-suppressing hormone therapies (e.g., antiandrogens or estrogens), refer to cisgender female reference intervals. For a complete set of all established reference intervals, refer to [email or web address]/Tests/Pub/0258853. Performed By: #### B TSTFC ####[facility]IES[facility]IA [id number] [place] [address]#### 2839-9 ####[facility] LABCLIA [id number] [place] [id number] [place] Testosterone [Mass/Vol] 29 ng/dL Normal 9-55 [facility] Comment on above: Order Comment: Speci men Type: BLOOD SPECIMENOrdering Facility: [facility] Address: [address] [place] [address] Result Comment: REFE RENCE INTERVAL: Testosterone by Poultry Husbandry Worker Females Premenopausal 9-55 ng/dL Postmenopausal 5-32 ng/dL INTERPRETIVE INFORMATION: Testosterone by Poultry Husbandry Worker Free or bioavailable testosterone measurements may provide supportive information. For individuals on testosterone-suppressing hormone therapies (e.g., antiandrogens or estrogens), refer to cisgender female reference intervals. For a complete set of all established reference intervals, refer to [facility]/Tests/Pub/3397343. This test was developed and its performance characteristics determined by [facility]. It has not been cleared or approved by the US Food and Drug Administration. This test was performed in a CLIA certified laboratory and is intended for clinical purposes. Performed By: #### B TSTFC ####[facility]IESCLIA [id number] [place] [address]#### 2839-9 ####[facility] LABIA [id number] [place] [id number] [place] TESTOSTERONE FREE 3.5 pg/mL Normal 0.8-7.4 [facility] Comment on above: Order Comment: Speci men Type: BLOOD SPECIMENOrdering Facility: [facility] Address: [address] [place] [address] Result Comment: REFE RENCE INTERVAL: Testosterone, Free by Poultry Husbandry Worker Females Postmenopausal: 0.6 - 3.8 pg/mL INTERPRETIVE INFORMATION: Testosterone, Free by Poultry Husbandry Worker Free testosterone concentration is calculated using total testosterone (measured by mass spectrometry) and the binding constant of testosterone and sex hormone-binding globulin (SHBG). For individuals on testosterone-suppressing hormone therapies (e.g., antiandrogens or estrogens), refer to cisgender female reference intervals. For a complete set of all established reference intervals, refer to [email or web address]/Tests/Pub/3404316. This test was developed and its performance characteristics determined by [facility]. It has not been cleared or approved by the US Food and Drug Administration. This test was performed in a CLIA certified laboratory and is intended for clinical purposes. Performed By: [facility] [address] [place] [address] Transportation Department Supervisor: Arthur Zaidi MD, PhD CLIA Number: [id number] Performed By: #### B TSTFC ####[facility] [id number] [place] [id number]#### 2839-9 ####[facility] LABCLIA [id number] [place] [address] [place] [facility]adiol [facility] E2 [Mass/Vol] 127 pg/mL Normal [facility] Comment on above: Order Comment: Speci men Type: BLOOD SPECIMENOrdering Facility: [facility] Address: [address] [place] [address] Result Comment: This test is not suitable for patients receiving treatment with the drug Fulvestrant (Faslodex). The drug causes an interference leading to falsely elevated estradiol results. Menstrual cycle Estradiol reference ranges: Follicular : < 234 pg/mL Ovulation : 41 to 398 pg/mL Luteal : < 342 pg/mL Estradiol reference ranges vary by gestational period: First trimester : 154 to 3243 pg/mL Second trimester : 1561 to 42774 pg/mL Third trimester : 8285 to >89578 pg/mL Post-menopausal Estradiol reference range: < 41 pg/mL Reference: 1. Estradiol - E2 (Estradiol III) [package insert V 3.0 [place]]. [facility], [place], [place], July 2015. Performed By: #### 2 243-4 ####[facility] LABCLIA [id number] [place] [address] [place] Progest SerPl-mCncon 024 Progesterone [Mass/Vol] 7.1 ng/mL Normal See comment [facility] Comment on above: Order Comment: Speci men Type: BLOOD SPECIMENOrdering Facility: [facility] Address: [address] [place] [address] Result Comment: Mens trual Cycle Progesterone Reference Ranges: Follicular: <1.0 ng/mL Ovulation: <12.1 ng/mL Luteal: 1.8 to 23.9 ng/mL. Progesterone Reference Ranges vary by gestational period: First Trimester: 11.0 to 44.3 ng/mL Second Trimester: 25.4 to 83.3 ng/mL Third Trimester: 58.7 to 214 ng/mL Post menopausal Progesterone: <0.5 ng/mL Reference: 1. Progesterone (Progesterone III) [package insert V 1.0 [place]]. [facility], [place], [place]. November 2014. Performed By: #### B TSTFC ####[facility] LABORATORIESCLIA [id number] [place] [address]#### 2839-9 ####[facility] LABCLIA [id number] [address] [place] CBC + DIFFon 08-28-2023 Baso # 0.02 x10EE3/UL Normal 0.00 - 0.[address] [facility] Comment on above: Performed By: #### 2 11791 #### [facility],[address] [place] [address] Basophils/100 WBC (Bld) 0.2 % Normal 0.0 - 2.0 [facility] Comment on above: Performed By: #### 2 57446 #### [facility],[address] [place] [address] CBC + DIFF Normal [facility] Comment on above: Result Comment: CBC- COMPLETE BLOOD COUNT Performed By: #### 2 32538 #### [facility],[address] [place] [address] EO # 0.09 x10EE3/UL Normal 0.00 - 0.[address] [facility] Comment on above: Performed By: #### 2 05666 #### [facility],[address] [place], [place] [id number] Eosinophils/100 WBC (Bld) 1.4 % Normal 0.0 - 7.0 [facility] Comment on above: Performed By: #### 2 76402 #### [facility],[address] [place] [address] Erythrocyte distribution width (RBC) [Ratio] 12.8 % Normal 12.0 - 15.6 [facility] Comment on above: Performed By: #### 2 59808 #### [facility],[address] [place] [address] Hematocrit (Bld) [Volume fraction] 44.6 % Normal 34.0 - 46.0 [facility] Comment on above: Performed By: #### 2 09769 #### [facility],[address] [place] [address] Hemoglobin (Bld) [Mass/Vol] 15.1 g/dL Normal 12.0 - 16.0 [facility] Comment on above: Performed By: #### 2 42488 #### [facility],[address] [place] [address] Lymph # 2.34 x10EE3/UL Normal 0.80 - 2.[address] [facility] Comment on above: Performed By: #### 2 85198 #### [facility],[address] [place], [place] [id number] Lymphocytes/100 WBC (Bld) 36.6 % Normal 20.0 - 45.0 [facility] Comment on above: Performed By: #### 2 24800 #### [facility],[address] [place], [place] [id number] MANUAL DIFF N/A Normal [facility] Comment on above: Performed By: #### 2 26280 #### [facility],[address] [place] [address] MCH (RBC) [Entitic mass] 30 pg Normal 27 - 33 [facility] Comment on above: Performed By: #### 2 54039 #### [facility],[address] [place] [address] MCHC 34 X10 3 Normal 32 - 36 [facility] Comment on above: Performed By: #### 2 32871 #### [facility],[address] [place] [address] MCV (RBC) [Entitic vol] 89 fL Normal 80 - 99 [facility] Comment on above: Performed By: #### 2 [address]9901 #### [place] [address] Carbon # 0.38 x10EE3/UL Normal 0.20 - 1.[address] [facility] Comment on above: Performed By: #### 2 03237 #### [facility],[address] [place] [address] MONOS % 5.9 % Normal 0.0 - 10.0 [facility] Comment on above: Performed By: #### 2 96510 #### [facility],[address] [place] [address] Morphology Marck (Bld) [Interp] N/A Normal [facility] Comment on above: Performed By: #### 2 19902 #### [place] [address] Neut # 3.58 x10EE3/UL Normal 1.50 - 7.[address] [facility] Comment on above: Performed By: #### 2 58306 #### [place] [address] Neutrophils/100 WBC (Bld) 55.9 % Normal 46.0 - 76.0 [facility] Comment on above: Performed By: #### 2 17718 #### [place] [address] PLATELET 339 x10EE3/UL Normal 150 - 450 [facility] Comment on above: Performed By: #### 2 05812 #### [facility],[address] [place] [address] Platelet mean volume (Bld) [Entitic vol] 8.4 fL Normal 6.6 - 10.5 [facility] Comment on above: Result Comment: AUTO MATED DIFFERENTIAL Performed By: #### 2 47538 #### [facility],[address] [place] [address] RBC 5.02 x 10EE6/UL Normal 4.10 - 5.30 [facility] Comment on above: Performed By: #### 2 54933 #### [facility],[address] [place] [address] WBC 6.4 x 10EE3/UL Normal 4.5 - 10.8 [facility] Comment on above: Performed By: #### 2 19526 #### [facility],[address] [place] [address] CMP with eGFRon 08-28-2023 AGE 22 years Normal [facility] [facility] Comment on above: Performed By: #### 2 [id number] #### [facility],[address] [place] [address] 05025 Albumin [Mass/Vol] 4.1 g/dL Normal 3.4 - 5.0 [facility] Comment on above: Performed By: #### 2 15937 #### [facility],[address] [place] [address] 12455 Albumin/Globulin [Mass ratio] 1.1 {ratio} Normal 0.9 - 1.6 [facility] Comment on above: Performed By: #### 2 50469 #### [facility],[address] [place] [address] 14745 ALK PHOS 86 U/L Normal 46 - 116 [facility] Comment on above: Performed By: #### 2 25135 #### [facility],[address] [place] [address] 26772 ALT [Catalytic activity/Vol] 11 U/L Low 16 - 63 [facility] Comment on above: Performed By: #### 2 84527 #### [facility],[address] [place] [address] 78814 Anion gap [Moles/Vol] 14 mmol/L Normal 10 - 20 [facility] Comment on above: Performed By: #### 2 34035 #### [facility],[address] [place] [address] 72421 AST [Catalytic activity/Vol] 16 U/L Normal 13 - 39 [facility] Comment on above: Performed By: #### 2 14732 #### [facility],[address] [place], [place] [id number] B/C RATIO 15 ratio Normal 0 - 30 [facility] Comment on above: Performed By: #### 2 36907 #### [facility],[address] [place] [address] 89272 Bilirubin [Mass/Vol] 1.5 mg/dL High 0.2 - 1.0 [facility] Comment on above: Performed By: #### 2 97519 #### [facility],[address] [place] [address] 44365 Calcium [Mass/Vol] 9.3 mg/dL Normal 8.5 - 10.1 [facility] Comment on above: Performed By: #### 2 32863 #### [facility],[address] [place] [address] 98674 Chloride [Moles/Vol] 104 mmol/L Normal 98 - 107 [facility] Comment on above: Performed By: #### 2 25016 #### [facility],[address] [place] [address] 05092 CMP with eGFR Normal [facility] Comment on above: Result Comment: COMP REHENSIVE METABOLIC PANEL Performed By: #### 2 79065 #### [facility],[address] [place] [address] 96318 CO2 [Moles/Vol] 26.3 mmol/L Normal 21.0 - 32.0 [facility] Comment on above: Performed By: #### 2 56320 #### [facility],[address] [place] [address] 12758 Creatinine [Mass/Vol] 0.65 mg/dL Normal 0.55 - 1.02 [facility] Comment on above: Performed By: #### 2 00832 #### [facility],[address] [place] [address] 00508 GFR/1.73 sq M.predicted among non-blacks MDRD (S/P/Bld) [Vol rate/Area] mL/min/{1.73_m2} Normal 60 - 999 [facility] Comment on above: Performed By: #### 2 56621 #### [facility],[address] [place] [address] Result Comment: ACCO RDING TO THE NATIONAL KIDNEY DISEASE EDUCATION PROGRAM(NKDE), A NORMAL eGFR IS A VALUE GREATER THAN OR EQUAL TO 60 ML/MIN/1.73 SQ METERS. CHRONIC KIDNEY DISEASE: <60mL/MIN/1.73 SQ METERS KIDNEY FAILURE: <15mL/MIN/1.73 SQ METERS THIS TEST SHOULD ONLY BE USED FOR PATIENTS 18 YEARS OF AGE AND OLDER. Globulin (S) [Mass/Vol] 3.7 g/dL Normal 1.5 - 3.8 [facility] Comment on above: Performed By: #### 2 31414 #### [facility],[address] [place] [address] 45937 Glucose [Mass/Vol] 74 mg/dL Normal 74 - 106 [facility] Comment on above: Performed By: #### 2 56525 #### [facility],[address] [place] [address] 40272 Potassium [Moles/Vol] 4.2 mmol/L Normal 3.5 - 5.1 [facility] Comment on above: Performed By: #### 2 42464 #### [facility],[address] [place] [address] 06982 Protein [Mass/Vol] 7.8 g/dL Normal 6.4 - 8.2 [facility] Comment on above: Performed By: #### 2 46146 #### [facility],[address] [place] [address] 16905 Sodium [Moles/Vol] 140 mmol/L Normal 136 - 145 [facility] Comment on above: Performed By: #### 2 30401 #### [facility],[address] [place] [address] 77414 Urea nitrogen [Mass/Vol] 10 mg/dL Normal [facility] Comment on above: Performed By: #### 2 41937 #### [facility],[address] [place], [place] [id number] T4-FREE (FREE THYROXINE)on 0 08-28-2023 Free T4 [Mass/Vol] 0.79 ng/dL Normal 0.76 - 1.46 [facility] Comment on above: Result Comment: P otential of falsely elevated results when biotin concentrations are > 10 ng/mL. Performed By: #### 2 23676 #### [facility],[address] [place] [address] 88798 TSHon 08-28-2023 TSH Qn 0.98 m[IU]/L Normal 0.35 - 3.74 [facility] Comment on above: Performed By: #### 2 84688 #### [facility],[address] [place] [address] 55563 CNOVon 08-27-2023 CNOV Office Visit ([facility]) MARY CURIEL ([id number]) 4 F Date Time Provider Department 08/27/23 1:00 PM JASON BALBUENA [facility] During your visit today, we recorded the following information about you: Blood pressure Weight Height 104/68 56.7 kg 1.6 m Jason Balbuena MD 08/27/2023 2:20 PM Signed HEADACHE MEDICINE ESTABLISHED VISIT August 27, 2023 1:00 PM Answers submitted by the patient for this visit: Headache Questionnaire (Submitted on 08/23/2023) How many days of work or school have you missed due to headaches in the last month? : 0 In the last month, how many headache days did you experience ALL of the following symptoms: decreased productivity, light sensitivity and nausea?: 0 How many days have you been completely free of headache pain in the last month? : 0 HEADACHE SCORES: 03/30/2023 06/29/2023 08/23/2023 Headache Questions ER visits since last office visit: 0 0 0 Hospital stays since last office visit 0 0 0 Limited ADLs in the last month: 7 8 8 Days missed from work or school in the last month: 3 4 0 Days headache pain free in the last month: 0 0 Days per month with ALL of the following symptoms - decreased productivity, light sensitivity and nausea: 0 0 0 Initial improvement of headache after botox injection at last visit: Not applicable, I did not have a botox injection at my last visit Not applicable, I did not have a botox injection at my last visit Not applicable, I did not have a botox injection at my last visit PRN medication usage in the last month: 7 8 6 Patient impression of improvement since last visit: No change Minimally improved No change 03/30/2023 06/29/2023 08/23/2023 HIT-6 HIT-6 61 (Severe impact) 63 (Severe impact) 64 (Severe impact) 03/30/2023 06/29/2023 08/23/2023 TANA - 2/7 SCORES TANA-2 Score 5 5 4 TANA-7 Score 15 13 11 03/30/2023 06/29/2023 08/23/2023 Migraine Specific QOL - Higher scores indicate better HRQL Role Function-Restrictive Transformed Score (range: 0-100) 51.43 34.29 45.71 Role Function-Preventive Transformed Score (range: 0-100) 75 75 80 Emotional Function Transformed Score (range: 0-100) 46.67 53.33 40 08/23/2023 06/29/2023 03/30/2023 PHQ-9 Score 5 10 7 INTERIM HISTORY: Pt last seen on 07/01/23 by KEELEY. She continued to AJOVY at that time in hopes of further improvement. She continues to have daily headaches. Fewer severe ones, fewer mild ones--instead they are all moderate. Discussed Botox. She was agreeable to trial. PAST MEDICAL HISTORY Diagnosis Date Anxiety state Chronic daily headache Current Outpatient Medications Medication Sig escitalopram oxalate (LEXAPRO) 20 mg tablet Take 1 tablet by mouth once daily. No current facility-administere d medications for this visit. ALLERGIES Allergen Reactions Milk Containing Pro* Mental Status Change, Other: See Comments PHYSICAL EXAMINATION: 08/27/23 1312 BP: 104/68 Weight: 56.7 kg (125 lb) Height: 160 cm (5' 3) General appearance: Well appearing, alert, in no acute distress, well-hydrated, well nourished. Skin: Skin color, texture, turgor normal, no suspicious rashes or lesions Head: NC/AT Eyes: EOMI Neuro: Negative findings: speech normal, mental status intact, no focal deficits. CN VII intact to facial symmetry, CN VIII intact to hearing. Mary was seen today for follow up. Diagnoses and all orders for this visit: Intractable chronic migraine without aura and without status migrainosus Mary Curiel is a 22 year old year old female, with a history of probable chronic migraine. Her neurological examination is essentially normal at this visit. ICHD-3 Diagnosis: Chronic Migraine Headache (CM) We will get a precert for Onabotulinum Toxin A using the PREEMPT protocol. This patient meets FDA criteria for Chronic Migraine without aura, with mention of intractable migraine, so stated, without mention of status migrainosus. The migraine lasts for greater than 4 hours and has been chronic for more than three months. Onabotulinum Toxin A is FDA approved for chronic migraine. Her headaches have been present for three or more months. Patient will not use in conjunction with CGRP preventive medications. Medication overuse, alternate diagnosis, confounding psychiatric or social stresses have been ruled out as the cause of headaches. Severity: moderate to severe Quality: throbbing Migraine days a month: 30 Headache days a month: 30 Total Headache days a month: 30 Headache free days a month: 0 The following preventative medications have been tried for at least three months without benefit or discontinued due to side effects: Anti-Convulsant Gabapentin (Neurontin) Topiramate (Topamax, Trokendi XL, Qudexy) Appetite Suppression Anti-Depressant and Antipsychotic Amitriptyline (Elavil) Escitalopram (Lexapro) Blood Pressure Propranolol (Inderal) MABs Freman (more content not included)... [facility] CNPN Telephone ([facility]) MARY CURIEL ([id number]) 4 F Date Time Provider Department 08/27/23 JASON BALBUENA [facility] During your visit today, we recorded the following information about you: Bossman Parkinson, RN 08/27/2023 3:41 PM Signed Botox referral sent to pharmacy Fortunato SEVILLA, RN Clinical Apprentice Architect [facility] Mary Allen 08/28/2023 10:08 AM Signed First Attempt - EC Mary Allen 09/08/2023 8:13 AM Signed Patient has been scheduled - EC Allergies As of Date: 08/27/2023 Noted Allergy Reaction MILK CONTAINING PRODUCTS (DAIRY) 09/12/2016 1 - Mental Status Change 14 - Other: See Comments Date Reviewed: 08/27/2023 Reviewed by: Mine Ruiz MA - Fully Assessed Reason for Visit: Referral Request [124] Prescriptions as of 09/08/2023 - escitalopram oxalate (LEXAPRO) 20 mg tablet Take 1 tablet by mouth once daily. Problem List As Of Date: 08/27/2023 (None) Encounter Status:Closed by BOSSMAN PARKINSON on 08/27/23 [facility] CNOVon 07-01-2023 CNOV Office Visit ([facility]) MARY CURIEL ([id number]) 4 F Date Time Provider Department 07/01/23 9:30 AM RICHY FREEDMAN [facility] During your visit today, we recorded the following information about you: Temperature Pulse Blood pressure Last Period 98.3 degrees 61/minute 120/70 06/13/23 Richy Freedman APRN.[employer] 07/01/2023 10:19 AM Signed Outpatient Headache Clinic - Follow Up Visit Accompanied by: Mother Primary Problem List: There is no problem list on file for this patient. Chief Complaint: headache follow-up LV: 04/01/23 Dr. Balbuena Impression and Plan from last visit: Pt is 22 year old female with chronic MIGRAINE Given that the headache started suddenly and has persisted on a daily basis--this may represent a NDPH. She can be treated using a migraine treatment paradigm in the interim to see if we can get her fewer headaches. D/C amitriptyline--no benefit. Trial of propranolol 20 mg po qhs; Trial of AJOVY 225 mg monthly. She can return in 3 months for follow-up care. Mary Curiel is a 22 year old year old female, with a history of chronic migraine. Her neurological examination is essentially normal at this visit. ICHD-3 Diagnosis: Chronic Migraine Headache (CM) Interval Headache History: Mary Curiel is a 22 year old year old female, with a history of chronic migraine following up today for daily headaches. Since the last visit, the patient states that her headaches have not changed. She was not able to tolerate propranolol (lightheaded) so she stopped the medication after 2 weeks. She had trouble getting Ajovy filled, just had 2nd injection this past week. Has not noticed much benefit, thinks her headaches may be a little less severe but hard to tell. Is in weekly therapy for anxiety, also on lexapro with another provider. Headache 1 Onset: - She reports that headaches started at age 16, but have not significantly worsened over that time. She reports no headache free days since age 16 when the headaches began. Location: bilateral and frontal Quality/Description: aching Associated Symptoms: Photophobia: no Phonophobia: no Nausea: no Vomiting: no Other symptoms: dizziness and lightheadedness Worse with activity: yes Number of migraine headache days/month: 0 Number of NON-migraine headache days/month: 30 Non-migraine headache severity: 3 (MAS's range from 2-3/10 to 8/10 in severity.) Total Number of headache days/month: 30 Number of headache free days/month: 0 Duration of headaches with treatment: continuous Current abortive treatment: sumatriptan Triggers: exertion/exercise, fasting/hunger and weather changes Onset of headache to peak: gradual Relieving factors: laying down Positional changes: no Most common time of day for headache to begin: morning, upon awakening, afternoon and evening Prodrome: none Aura: none Allodynia: no Days missed from work or school in the last month: 4 days Preventative: , Ajovy Abortive: none Medications effective? no # of doses of abortive medications per month: 0 Prior Therapies Duration of Use Dose Reason for Discontinuation Anti-Convulsant Gabapentin (Neurontin) Topiramate (Topamax, Trokendi XL, Qudexy) Appetite Suppression Anti-Depressant and Antipsychotic Amitriptyline (Elavil) Escitalopram (Lexapro) Anti-Migraine Sumatriptan (Imitrex, Sumavel) Blood Pressure Propranolol (Inderal) MABs Fremanezumab (Ajovy) Over the Counter Medications Acetaminophen (Tylenol) Acetaminophen/Aspiri n/Caffeine (Excedrin, Goody?s) Ibuprofen (Advil, Motrin) PAST MEDICAL HISTORY Diagnosis Date Anxiety state Chronic daily headache PAST SURGICAL HISTORY Procedure Laterality Date EYELID SURGERY PROCEDURE ALLERGIES Allergen Reactions Milk Containing Pro* Mental Status Change, Other: See Comments Current Medications: fremanezumab-vfrm (AJOVY AUTOINJECTOR) 225 mg/1.5 mL auto-injector Inject 1.5 mL subcutaneously once every month. Do not shake. escitalopram oxalate (LEXAPRO) 20 mg tablet Take 1 tablet by mouth once daily. I have reviewed the Leif Status Assessment responses and discussed these with the patient: yes Richy Freedman APRN.[facility] HEADACHE SCORES: 12/17/2022 03/30/2023 06/29/2023 Headache Questions ID Migraine Screener: 1 (Negative) ER visits in the last year: 0 ER visits since last office visit: 0 0 Hospital stays in the last year: 0 Hospital stays since last office visit 0 0 Limited ADLs in the last month: 7 8 Days missed from work or school in the last month: 3 4 Days headache pain free in the last month: 0 Days per month with ALL of the following symptoms - decreased productivity, light sensitivity and nausea: 0 0 Initial improvement of headache after botox injection at last visit: Not applicable, I did not have a botox injection at my last visit Not applicable, I did not have (more content not included)... [facility]phone ([facility]) MARY CURIEL ([id number]) 4 F Date Time Provider Department 05/22/23 JASON BALBUENA [facility] During your visit today, we recorded the following information about you: Ingrid Burleson 05/22/2023 9:07 AM Signed Name of Caller: Tory Relationship to patient: patient's mother Last visit in this department: 04/01/2023 Reason for Call: Other : Medication is still not at pharmacy Please advise Callback number: [phone] Isidra Quezada RN 05/22/2023 9:34 AM Signed Spoke with patient's mother (verified patient's name and date of ) and informed her that prior authorization can take 25-30 days to complete and this does not include the time that it takes for the insurance to review. Patient's mother is asking for an update in regards to where in the process is the prior authorization. Please call back with an update for the prior authorization. Thank you! Susy Burton, JESSI 05/30/2023 11:53 AM Signed Received voicemail 05-30-23 at 11:10 AM. Hi this message is for Dr. Sree Robertson's nurse. My name is Tory Curiel. My phone number is [phone]. The patient is Mary Curiel. Birthday is 2000. We've had kind of a run around with her one prescription, and I was just hoping to check in on that status. Thank you. Forwarding to [facility] to assist. Haylie Muhammad LPN 05/30/2023 2:59 PM Addendum TC to patients mother, Tory, patients name and verified, informed her that patients PA for Ajovy has been approved, verbalizes understand and states her insurance company just called her to inform of the approval as well, she states she will togiak back with pharmacy to get the Ajovy filled. Allergies As of Date: 05/22/2023 Noted Allergy Reaction MILK CONTAINING PRODUCTS (DAIRY) 09/12/2016 1 - Mental Status Change 14 - Other: See Comments Date Reviewed: 04/01/2023 Reviewed by: Nahed Sharma OCCA - Fully Assessed Prescriptions as of 05/30/2023 - fremanezumab-vfrm (AJOVY AUTOINJECTOR) 225 mg/1.5 mL auto-injector Inject 1.5 mL subcutaneously once every month. Do not shake. - propranolol (INDERAL) 20 mg tablet Take 1 tablet by mouth daily at bedtime. - escitalopram oxalate (LEXAPRO) 20 mg tablet Take 1 tablet by mouth once daily. Problem List As Of Date: 05/22/2023 (None) Encounter Status:Closed by DOTTIE ESTES on 05/30/23 [facility] 05-14-2023 [facility]STOP[facility] Telephone ([facility]) MARY CURIEL ([id number]) 4 F Date Time Provider Department 05/14/23 SREE JASON [facility] During your visit today, we recorded the following information about you: Judith Whalen MA 05/14/2023 2:58 PM Signed Attempted to complete PA for Ajovy: New [employer] Insurance information not available yet. I only see Lex. KUNAL Srinivasan Cynthia 05/15/2023 9:12 AM Signed Patients [employer] is now updated. Please send prior authorization for Ajovi. Thanks. Patients Mom will be calling Friday to check on this. Nahid Rodriguezbe 06/11/2023 10:27 AM Signed Duplicate encounter, PA completed on 05/21 Allergies As of Date: 05/14/2023 Noted Allergy Reaction MILK CONTAINING PRODUCTS (DAIRY) 09/12/2016 1 - Mental Status Change 14 - Other: See Comments Date Reviewed: 04/01/2023 Reviewed by: Nahed Sharma OCCA - Fully Assessed Reason for Visit: Insurance Authorization [[id number]] Ajovy/[employer] [Other] Prescriptions as of 06/11/2023 - fremanezumab-vfrm (AJOVY AUTOINJECTOR) 225 mg/1.5 mL auto-injector Inject 1.5 mL subcutaneously once every month. Do not shake. - propranolol (INDERAL) 20 mg tablet Take 1 tablet by mouth daily at bedtime. - escitalopram oxalate (LEXAPRO) 20 mg tablet Take 1 tablet by mouth once daily. Problem List As Of Date: 05/14/2023 (None) Encounter Status:Closed by JUDITH WHALEN on 05/14/23 [facility] 04-17-2023 CHRISTOPHER Telephone ([facility]) MARY CURIEL ([id number]) 4 F Date Time Provider Department 04/17/23 [facility] your visit today, we recorded the following information about you: Michelle Manley 04/17/2023 9:32 AM Signed Patient [employer] insurance is updated in chart. Please send prior authorization for Ajovi for patient to [facility] in [place]. Dr. Balbuena's message given to patients mother. Isidra Quezada, RN 04/17/2023 10:20 AM Signed See Telephone Encounter from 04/15/2023 Allergies As of Date: 04/17/2023 Noted Allergy Reaction MILK CONTAINING PRODUCTS (DAIRY) 09/12/2016 1 - Mental Status Change 14 - Other: See Comments Date Reviewed: 04/01/2023 Reviewed by: Nahed Sharma OCCA - Fully Assessed Reason for Visit: Patient Update [1234] Medication Request [138] Prescriptions as of 04/17/2023 - fremanezumab-vfrm (AJOVY AUTOINJECTOR) 225 mg/1.5 mL auto-injector Inject 1.5 mL subcutaneously once every month. Do not shake. - propranolol (INDERAL) 20 mg tablet Take 1 tablet by mouth daily at bedtime. - escitalopram oxalate (LEXAPRO) 20 mg tablet Take 1 tablet by mouth once daily. Problem List As Of Date: 04/17/2023 (None) Encounter Status:Closed by ISIDRA QUEZADA on 04/17/23 [facility] 04-15-2023 [facility] Telephone ([facility]) MARY CURIEL ([id number]) 4 F Date Time Provider Department 04/15/23 JASON BALBUENA [facility] During your visit today, we recorded the following information about you: Michelle Manley 04/15/2023 1:26 PM Signed Name of Caller: Tory Curiel Relationship to patient: patient's mother Last visit in this department: 04/01/2023 Reason for Call: Other : Patients Mom called to let Dr. Balbuena know that they have new insurance now. [employer]. The propranolol is making patient feel light headed, spacey, nauseas. Please advise what to do. Also needs the Ajovy-injection. Can that be submitted to new insurance asa? Thanks. Please call Mom. Callback number: [phone] Michelle Mine Haney MA 04/15/2023 3:44 PM Signed Last OV -04/01/2023 Next OV - 07/01/2023 Jason Balbuena MD 04/15/2023 3:58 PM Signed Please have the patient schedule a virtual visit with FORGE [employer]ER. Can discuss medication side-effects, alternatives, etc at that time. Jason Balbuena MD April 15, 2023 3:57 PM Jason Balbuena MD 04/16/2023 4:16 PM Signed The patient can stop the propranolol. Please ensure that the [facility] is updated with the new insurance. Once the new insurance is active in our system, we can seek to get the prior auth for the AJOVY done for the new insurance. Prior authorizations are taking 4-6 weeks currently. Please have her notify us when the insurance has been updated appropriately. Jason Balbuena MD April 16, 2023 4:16 PM Isidra Quezada RN 04/17/2023 10:20 AM Addendum See telephone encounter from 04/17/2023: Message posted below Allergies As of Date: 04/15/2023 Noted Allergy Reaction MILK CONTAINING PRODUCTS (DAIRY) 09/12/2016 1 - Mental Status Change 14 - Other: See Comments Date Reviewed: 04/01/2023 Reviewed by: Nahed Sharma OCCA - Fully Assessed Reason for Visit: Medication Problem [65] Prescriptions as of 06/05/2023 - fremanezumab-vfrm (AJOVY AUTOINJECTOR) 225 mg/1.5 mL auto-injector Inject 1.5 mL subcutaneously once every month. Do not shake. - propranolol (INDERAL) 20 mg tablet Take 1 tablet by mouth daily at bedtime. - escitalopram oxalate (LEXAPRO) 20 mg tablet Take 1 tablet by mouth once daily. Problem List As Of Date: 04/15/2023 (None) Encounter Status:Closed by MICHELLE MANLEY on 06/05/23 [facility] CNCOon 04-01-2023 CNCO Letter Text Normal [facility] CNOVon 04-01-2023 CNOV Office Visit ([facility]) MARY CURIEL ([id number]) 4 F Date Time Provider Department 04/01/23 8:00 AM JASON BALBUENA [facility] During your visit today, we recorded the following information about you: Temperature Pulse Blood pressure Weight 98 degrees 100/minute 126/81 60.1 kg Height Last Period 1.6 m 03/18/23 Jason Balbuena MD 04/01/2023 6:54 PM Signed HEADACHE MEDICINE ESTABLISHED VISIT April 01, 2023 8:00 AM Interim History: Still with 30/30 days of chronic headache. No benefit to amitriptyline. Discussed other options. Mother is with patient today. Answers submitted by the patient for this visit: Headache Questionnaire (Submitted on 03/30/2023) How many days of work or school have you missed due to headaches in the last month? : 3 In the last month, how many headache days did you experience ALL of the following symptoms: decreased productivity, light sensitivity and nausea?: 0 How many days have you been completely free of headache pain in the last month? : 0 HEADACHE SCORES: Headache Questions 12/17/2021 12/17/2022 03/30/2023 ID Migraine Screener: 2 (Positive) 1 (Negative) - ER visits in the last year: 0 0 - ER visits since last office visit: - - 0 Hospital stays in the last year: 0 0 - Hospital stays since last office visit - - 0 Limited ADLs in the last month: 7 - 7 Days missed from work or school in the last month: 3 - 3 Days headache pain free in the last month: 0 - 0 Days per month with ALL of the following symptoms - decreased productivity, light sensitivity and nausea: 0 - 0 Initial improvement of headache after botox injection at last visit: - - Not applicable, I did not have a botox injection at my last visit PRN medication usage in the last month: 9 - 7 Patient impression of improvement since last visit: - - No change HIT-6 12/17/2021 12/17/2022 03/30/2023 HIT-6 62 (Severe impact) 62 (Severe impact) 61 (Severe impact) TANA - 2/7 SCORES 12/13/2022 12/17/2022 03/30/2023 TANA-2 Score 4 4 5 TANA-7 Score 11 11 15 Migraine Specific QOL - Higher scores indicate better HRQL 12/17/2021 03/30/2023 Role Function-Restrictive Transformed Score (range: 0-100) 54.29 51.43 Role Function-Preventive Transformed Score (range: 0-100) 65 75 Emotional Function Transformed Score (range: 0-100) 33.33 46.67 PHQ-9 12/13/2022 12/17/2022 03/30/2023 Score 4 5 7 PAST MEDICAL HISTORY Diagnosis Date Anxiety state Chronic daily headache Current Outpatient Medications Medication Sig escitalopram oxalate (LEXAPRO) 20 mg tablet Take 1 tablet by mouth once daily. fremanezumab-vfrm (AJOVY AUTOINJECTOR) 225 mg/1.5 mL auto-injector Inject 1.5 mL subcutaneously once every month. Do not shake. propranolol (INDERAL) 20 mg tablet Take 1 tablet by mouth daily at bedtime. No current facility-administere d medications for this visit. ALLERGIES Allergen Reactions Milk Containing Pro* Mental Status Change, Other: See Comments Mary was seen today for follow up. Diagnoses and all orders for this visit: Intractable chronic migraine without aura and without status migrainosus - fremanezumab-vfrm (AJOVY AUTOINJECTOR) 225 mg/1.5 mL auto-injector; Inject 1.5 mL subcutaneously once every month. Do not shake. - propranolol (INDERAL) 20 mg tablet; Take 1 tablet by mouth daily at bedtime. - PROVIDER ORDERED FOLLOW UP; Future Pt is 22 year old female with chronic MIGRAINE Given that the headache started suddenly and has persisted on a daily basis--this may represent a NDPH. She can be treated using a migraine treatment paradigm in the interim to see if we can get her fewer headaches. D/C amitriptyline--no benefit. Trial of propranolol 20 mg po qhs; Trial of AJOVY 225 mg monthly. She can return in 3 months for follow-up care. Mary Curiel is a 22 year old year old female, with a history of chronic migraine. Her neurological examination is essentially normal at this visit. ICHD-3 Diagnosis: Chronic Migraine Headache (CM) We will request precertification for Calcitonin Gene Related Peptide Monoclonal Antibody, Fremanezumab. This patient meets ICHD-3 criteria for treatment with CGRP MAB, She has Chronic Migraine Headache (CM), Chronic Migraine without aura, without mention of intractable migraine without mention of status migrainosus which occurs at least 15 days per month for at least 4 hours per day. The FDA has approved CGRP MAB for prevention of migraine. Specifically, the patient has 30 migraines per month, lasting 4 or more hours/d associated with photophobia for three or more months. Medication overuse headache has been ruled out. Patient is not currently taking a Gepant for acute treatment of her migraine. The following preventative medications have been tried for 3 or more months without benefit or discontinued due and/or side effects. Anti-Convulsant Gabapentin (Neurontin) Topiramate (To (more content not included)... Normal [facility] Progress Noteon 08-21-2022 [employer] Authentication Interface Message Text [facility] Neurology Telemedicine Date: 08/21/2022 Patient Name:Mary Curiel Patient Primary Care Doctor: Gracia Roach APRN-CNP History source: Patient and parent Chief Complaint: Chief Complaint Patient presents with Headache This patient was seen at the request of Gracia Roach APRN-CNP for headaches. HISTORY OF PRESENTING ILLNESS: Mayr is a 21 y.o. female who presents with a chief concern of headaches. Headache Semiology (changes in bold print; otherwise semiology unchanged) Onset: a few days after the first headache ended, pulsing in nature Frequency: headaches have been kind of rough recently, a lot of bad days, she does not have any days when she is headache free; recent addition of atenolol has not really helped her headaches Duration: all day, some days are worse than others Localization: bitemporally Awakens from sleep:no Associated symptoms Nausea:no Photophobia: no Phonophobia:no Auras: no Diplopia: no Tinnitus: no Dysarthria: no Weakness:no Sensation:no Vertigo:no Relief:no Sumtatriptan is not helping, taking it close to 4 times [place] [employer] School: she is in college, heading into her sophomore; she is majoring in video game design; her headache is at a 4 out of 10, she always has a headache (she is never without a headache) Bullying: no new history of bullying Sleep hygiene: lights out at 10pm and she wakes up at 6:30am, no longer texting before bedtime Caffeine: no caffeine typically-drinks caffeine once per week Home: does not endorse any concerns Exercise:ballet 4x per week Diet/hydration: eats 4 meals per day, does not skip meals; water drinking has improved; remains dairy free, eating gluten again Anxiety/Depression: still participating in counseling Relief: on a dairy free diet; no OTC medications Weather changes Recent Air pollution Previous medications: Riboflavin (did not work) Prozac 20mg (did not provide relief) Topiramate (failed due to appetite suppression) Sumatriptan 100mg (not working) Currently on lexapro 20mg for anxiety, but she does not think that this has helped at all. Review of systems (based upon maternal response): Neurological: Please see HPI for additional neurological review of systems General: Does not endorse fever, change in activity Cardiovascular: Does not endorse palpitations, chest pain, shortness of breath, recent history of murmur, fainting, or dizziness with activity Respiratory: Does not endorse cough, wheezing, shortness of breath HEENT: Does not endorse change in vision, hearing, photo/phonophobia, rhinorrhea, ear pain, sore throat, neck pain GI: Does not endorse vomiting, diarrhea, constipation, hematemesis, hematochezia, melena : Does not endorse dysuria, frequency, urgency, hematuria Endocrine: Does not endorse polyuria/polydipsia, heat/cold, intolerance Musculoskeletal: Does not endorse myalgias, arthralgias, edema; no neck pain Skin: Does not endorse rash, bruising, petechia, purpura Psychological: Does not endorse change in behavior, aggression, concerns for depression Medications: Current Outpatient Medications: escitalopram (LEXAPRO) 20 MG tablet, Take 1 Tablet (20 mg) by mouth daily, Disp: , Rfl: atenolol (TENORMIN) 25 MG tablet, Take 3 Tablets (75 mg) by mouth every morning, Disp: 90 Tablet, Rfl: 6 SUMAtriptan Succinate (IMITREX) 100 MG tablet, Take 1 Tablet (100 mg) by mouth as needed for Other (migraines) TAKE 2ND TAB, 2 HOURS LATER, IF HEADACHE PERSISTS; NO MORE THAN 2 TABS PER DAY, NO MORE THAN 4 TABS PER WEEK, Disp: 12 Tablet, Rfl: 3 escitalopram (LEXAPRO) 10 MG tablet, Take 1 Tablet (10 mg) by mouth daily, Disp: , Rfl: UNABLE TO FIND, Take 2 Each by mouth daily Med Name: Balance (for Women), Disp: , Rfl: Allergies: Allergies Allergen Reactions Dairy Aid [Tilactase] Other (See Comments) Headaches VITALS: Deferred secondary to telemedicine visit EXAM: (limited by telemedicine visit) She was alert and aware throughout the entire medical interview. She was not short of breath. There was no abdominal distension. There was no congestion or rhinorrhea. There are no facial dysmorphic features. No rash or bruising on her extremities. She was in an appropriate mood. Pupils were symmetric. Extraocular movements intact. No facial asymmetry. No lingual deviation. Symmetric palate raise present. Symmetric movement in both upper and lower extremities. Able to stand from a seated position without using upper extremities. No involuntary movements observed. No dysmetria. Oppositional strength assessment, reflexes, tone, sensory exam, and fundoscopic exam deferred. DIAGNOSTICS: Images: MRI brain 11/14/2017 CLINICAL HISTORY: new onset headache lasting one month without relief; headache worse in the morning COMPARISON: None TECHNIQUE: Multiplanar multis (more content not included)... Normal [facility] Progress Noteon 04-10-2022 [employer] Authentication Interface Message Text This visit was modified due to the COVID19 pandemic. [facility] Neurology Telemedicine Date: 04/10/2022 Patient Name:Mary Curiel Patient Primary Care Doctor: Gracia Roach APRN-CNP History source: Patient and parent Chief Complaint: Chief Complaint Patient presents with Migraine This patient was seen at the request of Gracia Roach APRN-CNP for headaches. HISTORY OF PRESENTING ILLNESS: Mary is a 21 y.o. female who presents with a chief concern of headaches. Headache Semiology (changes in bold print; otherwise semiology unchanged) Onset: a few days after the first headache ended, pulsing in nature Frequency: occur every day; when she was at home for quarantine, her headaches were at a 4 out of 10, now they are at 2-3 out of 10; they are always frequent and daily, but they are less severe and she is having fewer bad days; her headaches do limit her from doing some of the things she wants to do Duration: not very long Localization: bitemporally Awakens from sleep:no Associated symptoms Nausea:no Photophobia: no Phonophobia:no Auras: no Diplopia: no Tinnitus: no Dysarthria: no Weakness:no Sensation:no Vertigo:no Relief:no Bromelains-supposed to break down extra mucus [employer] School: she is in college, freshman; she is majoring in video game design Bullying: no new history of bullying Sleep hygiene: lights out at 10pm and she wakes up at 6:30am, no longer texting before bedtime Caffeine: no caffeine typically-drinks caffeine once per week Home: does not endorse any concerns Exercise:ballet 4x per week Diet/hydration: eats 4 meals per day, does not skip meals; water drinking has improved; remains dairy free, eating gluten again Anxiety/Depression: still participating in counseling, over the phone, every 2 weeks, but now back to in person counseling Relief: on a dairy free diet; no OTC medications Being in a car can make her headaches worse Barometric pressure changes can worsen her headaches (maria antonia days to rainy days); the last time that her headaches were really bad were during rainy days, Mar 23- More than a couple of hours without eating something Review of systems (based upon maternal response): Neurological: Please see HPI for additional neurological review of systems General: Does not endorse fever, change in activity Cardiovascular: Does not endorse palpitations, chest pain, shortness of breath, recent history of murmur, fainting, or dizziness with activity Respiratory: Does not endorse cough, wheezing, shortness of breath HEENT: Does not endorse change in vision, hearing, photo/phonophobia, rhinorrhea, ear pain, sore throat, neck pain GI: Does not endorse vomiting, diarrhea, constipation, hematemesis, hematochezia, melena : Does not endorse dysuria, frequency, urgency, hematuria Endocrine: Does not endorse polyuria/polydipsia, heat/cold, intolerance Musculoskeletal: Does not endorse myalgias, arthralgias, edema; no neck pain Skin: Does not endorse rash, bruising, petechia, purpura Psychological: Does not endorse change in behavior, aggression, concerns for depression Medications: Current Outpatient Medications: SUMAtriptan Succinate (IMITREX) 100 MG tablet, Take 1 Tablet (100 mg) by mouth as needed for Other (migraines), Disp: , Rfl: escitalopram (LEXAPRO) 10 MG tablet, Take 1 Tablet (10 mg) by mouth daily, Disp: , Rfl: UNABLE TO FIND, Take 2 Each by mouth daily Med Name: Balance (for Women), Disp: , Rfl: Allergies: Allergies Allergen Reactions Dairy Aid [Tilactase] Other (See Comments) Headaches VITALS: Deferred secondary to telemedicine visit EXAM: (limited by telemedicine visit) She was alert and aware throughout the entire medical interview. She was not short of breath. There was no abdominal distension. There was no congestion or rhinorrhea. There are no facial dysmorphic features. No rash or bruising on her extremities. She was in an appropriate mood. Pupils were symmetric. Extraocular movements intact. No facial asymmetry, able to puff cheeks. No lingual deviation. Symmetric palate raise present. Symmetric movement in both upper and lower extremities. Able to stand from a seated position without using upper extremities. No involuntary movements observed. No dysmetria. Oppositional strength assessment, reflexes, tone, sensory exam, and fundoscopic exam deferred. DIAGNOSTICS: Images: MRI brain 11/14/2017 CLINICAL HISTORY: new onset headache lasting one month without relief; headache worse in the morning COMPARISON: None TECHNIQUE: Multiplanar multisequence MRI of the head was performed without intravenous contrast. FINDINGS: CEREBRAL PARENCHYMA: There is no parenchymal edema or shift of midline structures. No intracranial mass or hemorrhage is visualized. VENTRICLES: Normal size and configuration. (more content not included)... Normal [facility] A1Con 03-27-2021 HbA1c (Bld) [Mass fraction] 5.0 % Normal 4.0-6.0 [facility] ([place]) Comment on above: Performed By: #### A 1C #### [address] [address] .Auto Diffon 02-16-2021 Basophil, Absolute 0.00 10 3/mcL Normal 0.00-0.27 [facility] ([place]) Comment on above: Performed By: #### A UNA, ADIFF, CBC, GFR, CMP, FE, VIDH #### [address] [address] Basophils/100 WBC (Bld) 0.7 % Normal 0.0-2.5 A [facility] ([place]) Comment on above: Performed By: #### A UNA, ADIFF, CBC, GFR, CMP, FE, VIDH #### [address] [address] Eosinophil, Absolute 0.10 10 3/mcL Normal 0.00-0.65 A [facility] ([place]) Comment on above: Performed By: #### A UNA, ADIFF, CBC, GFR, CMP, FE, VIDH #### [address] [address] Eosinophils/100 WBC (Bld) 0.8 % Normal 0.0-6.0 [facility] ([place]) Comment on above: Performed By: #### A UNA, ADIFF, CBC, GFR, CMP, FE, VIDH #### [address] [address] Lymphocyte, Absolute 2.10 10 3/mcL Normal 0.90-4.32 A [facility] ([place]) Comment on above: Performed By: #### A UNA, ADIFF, CBC, GFR, CMP, FE, VIDH #### [address] [address] Lymphocytes/100 WBC (Bld) 34.4 % Normal 20.0-40.0 [facility] ([place]) Comment on above: Performed By: #### A UNA, ADIFF, CBC, GFR, CMP, FE, VIDH #### [address] [address] Monocyte, Absolute 0.30 10 3/mcL Normal 0.09-1.40 [facility] ([place]) Comment on above: Performed By: #### A UNA, ADIFF, CBC, GFR, CMP, FE, VIDH #### [address] [address] Monocytes/100 WBC (Bld) 4.7 % Normal 2.0-13.0 [facility] ([place]) Comment on above: Performed By: #### A UNA, ADIFF, CBC, GFR, CMP, FE, VIDH #### [address] [address] Neutrophils/100 WBC (Bld) 59.4 % Normal 50.0-75.0 [facility] ([place]) Comment on above: Performed By: #### A UNA, ADIFF, CBC, GFR, CMP, FE, VIDH #### [address] [address] .GFRon 02-16-2021 GFR >60 Normal [facility] ([place]) Comment on above: Result Comment: GFR Population mean for , Non- Americans Ages 20-29 = 116 mL/min/1.73 sq.m. Ages 30-39 = 107 mL/min/1.73 sq.m. Ages 40-49 = 99 mL/min/1.73 sq.m. Ages 50-59 = 93 mL/min/1.73 sq.m. Ages 60-69 = 85 mL/min/1.73 sq.m. Ages 70+ = 75 mL/min/1.73 sq.m. Chronic Kidney Disease: Less than 60 mL/min/1.73 square meters End Stage Renal Disease: Less than 15 mL/min/1.73 square meters Performed By: #### A UNA, ADIFF, CBC, GFR, CMP, FE, VIDH #### [address] [address] GFR Non- >60 Normal [facility] ([place]) Comment on above: Result Comment: GFR Population mean for , Non- Americans Ages 20-29 = 116 mL/min/1.73 sq.m. Ages 30-39 = 107 mL/min/1.73 sq.m. Ages 40-49 = 99 mL/min/1.73 sq.m. Ages 50-59 = 93 mL/min/1.73 sq.m. Ages 60-69 = 85 mL/min/1.73 sq.m. Ages 70+ = 75 mL/min/1.73 sq.m. Chronic Kidney Disease: Less than 60 mL/min/1.73 square meters End Stage Renal Disease: Less than 15 mL/min/1.73 square meters Performed By: #### A UNA, ADIFF, CBC, GFR, CMP, FE, VIDH #### [address] [address] .NEUABSon 02-16-2021 Neutrophil, Absolute 3.70 10 3/mcL Normal 2.25-8.10 A [facility] ([place]) Comment on above: Performed By: #### A UNA, ADIFF, CBC, GFR, CMP, FE, VIDH #### [address] [address] CBCon 02-16-2021 Erythrocyte distribution width (RBC) [Ratio] 12.6 % Normal 11.5-15.5 [facility] ([place]) Comment on above: Performed By: #### A UNA, ADIFF, CBC, GFR, CMP, FE, VIDH #### [address] [address] Hematocrit (Bld) [Volume fraction] 39.9 % Normal 34.0-46.0 [facility] ([place]) Comment on above: Performed By: #### A UNA, ADIFF, CBC, GFR, CMP, FE, VIDH #### [address] [address] Hgb 13.5 G/dL Normal 12.0-16.0 [facility] ([place]) Comment on above: Performed By: #### A UNA, ADIFF, CBC, GFR, CMP, FE, VIDH #### [place] [id number] MCH (RBC) [Entitic mass] 29.2 pg Normal 27.0-33.0 [facility] ([place] Comment on above: Performed By: #### A UNA, ADIFF, CBC, GFR, CMP, FE, VIDH #### [place] [id number] MCHC 33.8 G/dL Normal 32.0-36.0 [facility] ([place]) Comment on above: Performed By: #### A UNA, ADIFF, CBC, GFR, CMP, FE, VIDH #### [place] [address] MCV (RBC) [Entitic vol] 86.3 fL Normal 80.0-99.0 A [facility] ([place] Comment on above: Performed By: #### A UNA, ADIFF, CBC, GFR, CMP, FE, VIDH #### [place] [address] Platelet 315 10 3/mcL Normal 150-450 [facility] ([place]) Comment on above: Performed By: #### A UNA, ADIFF, CBC, GFR, CMP, FE, VIDH #### [place] [address] Platelet mean volume (Bld) [Entitic vol] 9.3 fL Normal 6.6-10.5 [facility] ([place]) Comment on above: Performed By: #### A UNA, ADIFF, CBC, GFR, CMP, FE, VIDH #### [place] [address] RBC 4.62 10 6/mcL Normal 4.10-5.30 [facility] ([place]) Comment on above: Performed By: #### A UNA, ADIFF, CBC, GFR, CMP, FE, VIDH #### [place] [address] WBC 6.20 10 3/mcL Normal 4.50-10.80 [facility] ([place]) Comment on above: Performed By: #### A UNA, ADIFF, CBC, GFR, CMP, FE, VIDH #### [address] [address] CMPon 02-16-2021 Albumin Level 4.0 G/dL Normal 3.2-4.8 [facility] ([place] Comment on above: Performed By: #### A UNA, ADIFF, CBC, GFR, CMP, FE, VIDH #### [address] [address] Albumin/Globulin [Mass ratio] 1.3 {ratio} Normal 0.9-1.6 [facility] ([place]) Comment on above: Performed By: #### A UNA, ADIFF, CBC, GFR, CMP, FE, VIDH #### [address] [address] ALP [Catalytic activity/Vol] 62 U/L Normal 28-126 [facility] ([place]) Comment on above: Performed By: #### A UNA, ADIFF, CBC, GFR, CMP, FE, VIDH #### [address] [address] ALT [Catalytic activity/Vol] 15 U/L Normal 10-49 [facility] ([place] Comment on above: Performed By: #### A UNA, ADIFF, CBC, GFR, CMP, FE, VIDH #### [address] [address] AST [Catalytic activity/Vol] 29 U/L Normal 8-34 [facility] ([place] Comment on above: Performed By: #### A UNA, ADIFF, CBC, GFR, CMP, FE, VIDH #### [address] [address] Bili Total 1.30 mg/dL High 0.20-1.20 [facility] ([place]) Comment on above: Result Comment: Use of this assay is not recommended for patients undergoing treatment with eltrombopag due to the potential for falsely elevated results. Performed By: #### A UNA, ADIFF, CBC, GFR, CMP, FE, VIDH #### [address] [address] BUN/Creatinine Ratio 13.3 ratio Normal 10.0-22.0 [facility] ([place]) Comment on above: Performed By: #### A UNA, ADIFF, CBC, GFR, CMP, FE, VIDH #### [address] [address] Calcium [Mass/Vol] 10.1 mg/dL Normal 8.7-10.4 [facility] ([place]) Comment on above: Result Comment: No te - New Reference Range in effect 19 Performed By: #### A UNA, ADIFF, CBC, GFR, CMP, FE, VIDH #### [address] [address] Chloride [Moles/Vol] 107 mmol/L Normal 98-110 [facility] ([place]) Comment on above: Performed By: #### A UNA, ADIFF, CBC, GFR, CMP, FE, VIDH #### [address] [address] CO2 [Moles/Vol] 27 mmol/L Normal 22-32 [facility] ([place]) Comment on above: Performed By: #### A UNA, ADIFF, CBC, GFR, CMP, FE, VIDH #### [address] [address] Creatinine [Mass/Vol] 0.60 mg/dL Normal 0.50-1.20 [facility] ([place]) Comment on above: Performed By: #### A UNA, ADIFF, CBC, GFR, CMP, FE, VIDH #### [address] [address] Electrolyte Balance 7.0 mEq/L Normal 4.0-15.0 [facility] ([place]) Comment on above: Performed By: #### A UNA, ADIFF, CBC, GFR, CMP, FE, VIDH #### [address] [address] Globulin 3.0 G/dL Normal 1.5-3.8 [facility] ([place]) Comment on above: Performed By: #### A UNA, ADIFF, CBC, GFR, CMP, FE, VIDH #### [address] [address] Glucose [Mass/Vol] 128 mg/dL High 70-110 [facility] ([place]) Comment on above: Performed By: #### A UNA, ADIFF, CBC, GFR, CMP, FE, VIDH #### [address] [address] Potassium [Moles/Vol] 4.3 mmol/L Normal 3.5-5.0 [facility] ([place]) Comment on above: Performed By: #### A UNA, ADIFF, CBC, GFR, CMP, FE, VIDH #### [address] [address] Sodium [Moles/Vol] 141 mmol/L Normal 136-145 [facility] ([place] Comment on above: Performed By: #### A UNA, ADIFF, CBC, GFR, CMP, FE, VIDH #### [place] [id number] Total Protein 7.0 G/dL Normal 5.7-8.2 [facility] ([place] Comment on above: Result Comment: No te - New Reference Range in effect 19 Performed By: #### A UNA, ADIFF, CBC, GFR, CMP, FE, VIDH #### [place] [id number] Urea nitrogen [Mass/Vol] 8.0 mg/dL Normal 8.0-22.0 [facility] ([place]) Comment on above: Performed By: #### A UNA, ADIFF, CBC, GFR, CMP, FE, VIDH #### [address] [address] FEon 02-16-2021 Iron [Mass/Vol] 75 ug/dL Normal 50-170 [facility] ([place]) Comment on above: Performed By: #### A UNA, ADIFF, CBC, GFR, CMP, FE, VIDH #### [place] [id number] VIDHon 02-16-2021 Vit. D 25-Hydroxy 44.3 ng/mL Normal [facility] ([place]) Comment on above: Result Comment: Inte rpretive Values Based on Total 25(OH)D: Severe Deficiency <20 ng/mL Mild to Moderate Deficiency 20-30 ng/mL Optimum Levels 30-100 ng/mL Toxicity Possible >100 ng/mL Performed By: #### A UNA, ADIFF, CBC, GFR, CMP, FE, VIDH #### [place] [address] Vital Signs Date Time Vital Sign Value Performing Clinician Faci lity 07-19-2024 09:50-0400 Body mass index (BMI) [Ratio] 22.59 kg/m2 Zarina Slaughter MD Work Phone: [facility] [employer] 07-19-2024 09:50-0400 Body weight 57.83 kg Zarina Slaughter MD Work Phone: [employer] 07-19-2024 09:50-0400 Diastolic blood pressure 67 mm[Hg] Zarina Slaughter MD Work Phone: [employer] 07-19-2024 09:50-0400 Heart rate 76 /min Zarina Slaughter MD Work Phone: [employer] 07-19-2024 09:50-0400 Systolic blood pressure 123 mm[Hg] Zarina Slaughter MD Work Phone: [employer] 04-16-2024 09:24-0500 Body height 160 cm Zarina Slaughter MD Work Phone: [employer] 04-16-2024 09:24-0500 Body mass index (BMI) [Ratio] 21.79 kg/m2 Zarina Slaughter MD Work Phone: [employer] 04-16-2024 09:24-0500 Body weight 55.79 kg Zarina Slaughter MD Work Phone: [facility] 04-16-2024 09:24-0500 Diastolic blood pressure 76 mm[Hg] Zarina Slaughter MD Work Phone: [facility] 04-16-2024 09:24-0500 Heart rate 79 /min Zarina Slaughter MD Work Phone: [facility] 04-16-2024 09:24-0500 Systolic blood pressure 129 mm[Hg] Zarina Slaughter MD Work Phone: [facility] 03-05-2024 10:04-0500 Body height 160 cm Zarina Slaughter MD Work Phone: [facility] 03-05-2024 10:04-0500 Body mass index (BMI) [Ratio] 21.79 kg/m2 Zarina Slaughter MD Work Phone: [facility] 03-05-2024 10:04-0500 Body temperature 98.1 [degF] Zarina Slaughter MD Work Phone: [facility] 03-05-2024 10:04-0500 Body weight 55.79 kg Zarina Slaughter MD Work Phone: [facility] 03-05-2024 10:04-0500 Diastolic blood pressure 67 mm[Hg] Zarina Slaughter MD Work Phone: [facility] 03-05-2024 10:04-0500 Heart rate 76 /min Zarina Slaughter MD Work Phone: [facility] 03-05-2024 10:04-0500 Systolic blood pressure 127 mm[Hg] Zarina Slaughter MD Work Phone: [facility] 02-05-2024 13:01-0500 Body temperature 96.8 [degF] Zarina Slaughter MD Work Phone: [facility] 02-05-2024 13:01-0500 Body weight 55.88 kg Zarina Slaughter MD Work Phone: [facility] 02-05-2024 13:01-0500 Diastolic blood pressure 69 mm[Hg] Zarina Slaughter MD Work Phone: [facility] 02-05-2024 13:01-0500 Heart rate 85 /min Zarina Slaughter MD Work Phone: [facility] 02-05-2024 13:01-0500 Systolic blood pressure 125 mm[Hg] Zarina Slaughter MD Work Phone: [facility] 10-10-2023 12:57-0400 Body height 161.5 cm Koli Green LINUX SUPPORT ENGINEER.SUPERVISOR [employer] Work Phone: [facility] 10-10-2023 12:57-0400 Body mass index (BMI) [Ratio] 22.7 kg/m2 Koli Green LINUX SUPPORT ENGINEER.SUPERVISOR [employer] Work Phone: [facility] 10-10-2023 12:57-0400 Body temperature 98.6 [degF] Koli Green LINUX SUPPORT ENGINEER.SUPERVISOR [employer] Work Phone: [facility] 10-10-2023 12:57-0400 Body weight 59.2 kg Koli Green LINUX SUPPORT ENGINEER.SUPERVISOR [employer] Work Phone: [facility] 10-10-2023 12:57-0400 Diastolic blood pressure 73 mm[Hg] Koli Green LINUX SUPPORT ENGINEER.SUPERVISOR [employer] Work Phone: [facility] 10-10-2023 12:57-0400 Heart rate 85 /min Koli Green LINUX SUPPORT ENGINEER.SUPERVISOR [employer] Work Phone: [facility] 10-10-2023 12:57-0400 Systolic blood pressure 110 mm[Hg] Koli Green LINUX SUPPORT ENGINEER.SUPERVISOR [employer] Work Phone: [facility] 08-27-2023 13:12-0400 Body height 160 cm Jason Balbuena MD Work Phone: [facility] 08-27-2023 13:12-0400 Body mass index (BMI) [Ratio] 22.14 kg/m2 Jason Balbuena MD Work Phone: [facility] 08-27-2023 13:12-0400 Body weight 56.7 kg Jason Balbuena MD Work Phone: [facility] 08-27-2023 13:12-0400 Diastolic blood pressure 68 mm[Hg] Jason Balbuena MD Work Phone: [facility] 08-27-2023 13:12-0400 Systolic blood pressure 104 mm[Hg] Jason Balbuena MD Work Phone: [facility] 07-01-2023 09:28-0400 Body temperature 98.29 [degF] Richy Freedman LINUX SUPPORT ENGINEER.SUPERVISOR [employer] Work Phone: [facility] 07-01-2023 09:28-0400 Diastolic blood pressure 70 mm[Hg] Richy Freedman LINUX SUPPORT ENGINEER.SUPERVISOR [employer] Work Phone: [facility] 07-01-2023 09:28-0400 Heart rate 61 /min Richy Freedman LINUX SUPPORT ENGINEER.SUPERVISOR [employer] Work Phone: [facility] 07-01-2023 09:28-0400 Systolic blood pressure 120 mm[Hg] Richy Freedman LINUX SUPPORT ENGINEER.SUPERVISOR [employer] Work Phone: [facility] 04-01-2023 07:50-0500 Body height 160 cm Jason Balbuena MD Work Phone: [facility] 04-01-2023 07:50-0500 Body temperature 98.01 [degF] Jason Balbuena MD Work Phone: [facility] 04-01-2023 07:50-0500 Body weight 60.06 kg Jason Balbuena MD Work Phone: [facility] 04-01-2023 07:50-0500 Diastolic blood pressure 81 mm[Hg] Jason Balbuena MD Work Phone: [facility] 04-01-2023 07:50-0500 Heart rate 100 /min Jason Balbuena MD Work Phone: [facility] 04-01-2023 07:50-0500 SaO2% (BldA) [Mass fraction] 98 % Jason Balbuena MD Work Phone: [facility] 04-01-2023 07:50-0500 Systolic blood pressure 126 mm[Hg] Jason Balbuena MD Work Phone: [facility] Encounters Encounter Date Encounter Type Care Provider Facility Start: 10-25-2024 End: 10-25-2024 ambulatory ELPIDIO MUCK Work Phone: -MRI - [facility] Start: 10-25-2024 End: 10-25-2024 Patient encounter procedure ELPIDIO MUCK Work Phone: -MRI - [facility] Work Phone: Start: 10-25-2024 End: 10-25-2024 ambulatory [facility] Facility:[facility] Start: 09-02-2024 End: 09-02-2024 ambulatory ELPIDIO MUCK Work Phone: -Laboratory Start: 09-02-2024 End: 09-02-2024 Patient encounter procedure ELPIDIO MUCK Work Phone: -Laboratory Work Phone: Start: 09-02-2024 End: 09-02-2024 ambulatory [facility] Facility:[facility] Start: 07-19-2024 End: 07-19-2024 ambulatory [facility] Start: 07-19-2024 End: 07-19-2024 Office outpatient visit 25 minutes Zarina Slaughter MD Work Phone: [facility] Neurology [facility] Comment on above: Intractable persiste nt migraine aura without cerebral infarction and without status migrainosus (Primary Dx); Functional neurological symptom disorder with attacks or seizures Start: 04-19-2024 End: 04-19-2024 ambulatory [facility] FORGE TENDER-C Work Phone: [facility] Work Phone: Start: 04-19-2024 End: 04-19-[address] 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) (Primary Dx); Intractable migraine without aura and without status migrainosus; Functional neurological symptom disorder with mixed symptoms Start: 03-05-2024 End: 03-05-2024 ambulatory ZARINA SLAUGHTER Start: 03-05-2024 End: 03-05-2024 Office outpatient visit 15 minutes Zarina Slaughter MD Work Phone: [facility] Comment on above: Intractable chronic migraine without aura and without status migrainosus (Primary Dx) Start: 02-05-2024 End: 02-05-2024 Office outpatient new 45 minutes Zarina Slaughter MD Work Phone: [facility] Comment on above: Chronic daily headac he (Primary Dx); Functional neurological symptom disorder with mixed symptoms Start: 02-05-2024 End: 02-05-2024 ambulatory ZARINA [facility] Start: 12-10-2023 End: 12-11-2023 Telephone encounter Zarina Slaughter MD Work Phone: [facility] Comment on above: Referral Start: 10-10-2023 End: 10-10-2023 Patient encounter procedure Vickie Chavez APRN.CNP Work Phone: Neurology Headache [facility] Comment on above: Intractable chronic migraine without aura and without status migrainosus (Primary Dx); Chronic daily headache Start: 09-11-2023 End: 09-11-2023 ambulatory MANOJ FORGE TENDER Suzette'GALE [facility] Start: 08-28-2023 End: 08-28-2023 ambulatory JEANETTE VENEGAS [facility] Start: 08-27-2023 Telephone encounter Jason olguin MD Work Phone: Neurology Comment on above: Referral Request Start: 08-27-2023 End: 08-27-2023 ambulatory JASON BALBUENA Facility:[facility] Start: 08-27-2023 End: 08-27-2023 Office outpatient visit 15 minutes Jason Balbuena MD Work Phone: Neurology [facility] Comment on above: Intractable chronic migraine without aura and without status migrainosus (Primary Dx) Start: 07-01-2023 End: 07-01-2023 ambulatory RICHY FREEDMAN Facility:[facility] Start: 07-01-2023 End: 07-01-2023 Patient encounter procedure Richy Freedman LINUX SUPPORT ENGINEER.SUPERVISOR [employer] Work Phone: Neurology [facility] Comment on above: Chronic daily headac he (Primary Dx) Start: 05-22-2023 Telephone encounter Jason olguin MD Work Phone: [facility] Start: 05-14-2023 Telephone encounter Jason Selby Neurology Comment on above: Insurance Authorizat ion; [employer] Start: 04-17-2023 Telephone encounter Jason Selby Neurology [facility] Comment on above: Patient Update; Medi cation Request Start: 04-15-2023 Telephone encounter Jason olguin MD Work Phone: Neurology [facility] Comment on above: Medication Problem Start: 04-01-2023 End: 04-01-2023 ambulatory JASON BALBUENA Facility:[facility] Start: 04-01-2023 End: 04-01-2023 Office outpatient visit 15 minutes Jason Balbuena MD Work Phone: Neurology [facility] Comment on above: Intractable chronic migraine without aura and without status migrainosus (Primary Dx) Start: 12-20-2022 End: 12-20-2022 ambulatory SMOOTH JORDAN Facility:[facility] Start: 08-21-2022 End: 08-21-2022 ambulatory SMOOTH Dewey [facility] Start: 04-10-2022 End: 04-10-2022 ambulatory SMOOTH R [facility] Procedures Date Procedure Procedure Detail Performing Clinician Start: 10-25-2024 MRI of brain with contrast ELPIDIO DOE Work Phone: Start: 10-25-2024 MRI of cervical spine C HERYL MUCK Work Phone: Start: 09-02-2024 KELLEY measurement ELPIDIO MUCK Work Phone: Comment on above: Performed at: [address] [id number] Director: Lamberto Quiroz PhD, Phone: [phone] Start: 09-02-2024 Antibody to centrome re measurement ELPIDIO MUCK Work Phone: Comment on above: Test not performed Start: 09-02-2024 Antibody to extracta ble nuclear antigen measurement ELPIDIO MUCK Work Phone: Comment on above: Test not performed Start: 09-02-2024 Antibody to ANGELINE-1 measurement ELPIDIO MUCK Work Phone: Comment on above: Test not performed Start: 09-02-2024 Antibody to lupus La protein measurement ELPIDIO MUCK Work Phone: Comment on above: Test not performed Start: 09-02-2024 Antibody to SS-A measurement ELPIDIO MUCK Work Phone: Comment on above: Test not performed Start: 09-02-2024 Autoantibody measurement ELPIDIO MUCK Work Phone: Comment on above: Test not performed Start: 09-02-2024 Gabrielle-Vraghese virus c apsid IgG measurement ELPIDIO MUCK Work Phone: Comment on above: Negative <18.0 Equiv ocal 18.0 - 21.9 Positive >21.9 Start: 09-02-2024 Gabrielle-Varghese virus s erologic test ELPIDIO MUCK Work Phone: Comment on above: EBV Interpretation C hartKey: Antibody Present + Antibody Absent -Interpretation VCA-IgM VCA-IgG EBNA-IgGNo previous infection/ - - -SusceptiblePrimary infection (new + + -or recent)Past Infection +or- + +See comment below* + - -*Results indicate infection with EBV at some time however cannot predict the timing of the infection since antibodies to EBNA usually develop after primary infection or, alternatively, approximately 5-10% of patients with EBV never develop antibodies to EBNA. Start: 09-02-2024 Measurement of Borre alex burgdorferi antibody ELPIDIO DOE Work Phone: Comment on above: Lyme antibodies not detected. Reflex testing is notindicated.No laboratory evidence of infection with B. burgdorferi(Lyme disease). Negative results may occur in patientsrecently infected (less than or equal to 14 days) with B.burgdorferi. If recent infection is suspected, repeattesting on a new sample collected in 7 to 14 days isrecommended. Start: 09-02-2024 Procedure ELPIDIO Coburn Work Phone: Comment on above: Test Ordered: [id number]+[id number] Screen, Urine Negative ng/mL UI Reference Range: Hflgnd=250Gpgswdzbrvu test includes Amphetamine and Methamphetamine.Barbiturates Negative ng/mL UI Reference Range: Wbdwsr=782Ygbjqszdwjwdvuq Negative ng/mL UI Reference Range: Ykaevc=115Qirsrac (Metab.), Urine Negative ng/mL UI Reference Range: Jgzjzg=758Cqrunbm Negative ng/mL UI Reference Range: Ossaty=872Knfcty test includes Codeine, Morphine, Hydromorphone, Hydrocodone.6-Acetylmorphine, Urine Negative ng/mL UI Reference Range: Cutoff=10Oxycodone/Oxymorphone, Urine Negative ng/mL UI Reference Range: Udgvok=528Fxmc includes Oxycodone and OxymorphonePCP, Urine Negative ng/mL UI Reference Range: Cutoff=25Methadone Screen, Urine Negative ng/mL UI Reference Range: Terehn=774Emzzqfvjkvoq, Urine Negative ng/mL UI Reference Range: Masqql=949Oiurzaiv, Urine Negative ng/mL UI Reference Range: Cutoff=2.0Test includes Fentanyl and NorfentanylThis test was developed and its performance characteristicsdetermined by [employer]. It has not been cleared orapproved by the Food and Drug Administration.Tramadol Negative ng/mL UI Reference Range: Tnrjdy=154Dauozschkarxj, Urine Negative ng/mL UI Reference Range: Cutoff=10Creatinine, Urine 69.7 mg/dL UI Reference Range: 20.0-300.0pH, Urine 7.4 UI Reference Range: 4.5-8.9Performed at: UI - [facility] [id number] [facility], [place], [place] [id number] Director: Sher Jaramillo PhD, Phone: [phone] at: CB - [facility] [id number] [place], [place] [id number] Director: Lamberto Quiroz PhD, Phone: [phone] Start: 09-02-2024 SUPERVISOR ELECTRONICS PROCESSING antibody measurement ELPIDIO MUCK Work Phone: Comment on above: Test not performed Start: 09-02-2024 Vitamin D, 25-hydrox y measurement ELPIDIO MUCK Work Phone: Comment on above: Vitamin D StatusDefi ciency: <20 ng/mL (50nmol/L)Insufficiency: 20-30 ng/mL (50-75 nmol/L)Sufficiency: 30-100 ng/mL (75-250 nmol/L)Toxicity: >100 ng/mL (>250 nmol/L) Start: 03-05-2024 Follow-up visit Follow-up ZARINA GALE Plan of Treatment Date Care Activity Detail Author Start: 2077 RSV Immunization for Adults (1 - 1-dose 75+ series) RSV Immunization for Adults (1 - 1-dose 75+ series) [facility] Start: 2052 Zoster Vaccines (1 of 2) Zoster Vaccines (1 of 2) [facility] Start: 10-11-2024 Influenza vaccination Influenza Vaccine (Season Ended) [facility] Start: 07-19-2024 End: 07-19-2024 Patient encounter procedure 07/19/2024 9:45 AM EDT Office Visit [address] [place] [address] [place] [address] Zarina Slaughter MD [address] [place] [address] [place] [address] [facility] Start: 04-16-2024 End: 04-16-2025 C reactive protein [Mass/volume] in Serum or Plasma C-reactive protein Lab Routine Other systemic lupus erythematosus with lung involvement (HCC) Expected: 04/16/2024 (Approximate), Expires: 04/16/2025 [facility] Comment on above: Expected: 04/16/2024 (Approximate), Expi res: 04/16/2025 Start: 04-16-2024 End: 04-16-2025 CBC panel - Blood by Automated count CBC Lab Routine Other systemic lupus erythematosus with lung involvement (HCC) Expected: 04/16/2024 (Approximate), Expires: 04/16/2025 [facility] Comment on above: Expected: 04/16/2024 (Approximate), Expi res: 04/16/2025 Start: 04-16-2024 End: 04-16-2025 Cobalamin (Vitamin B12) [Mass/volume] in Serum or Plasma Vitamin B12 Lab Routine Other systemic lupus erythematosus with lung involvement (HCC) Expected: 04/16/2024 (Approximate), Expires: 04/16/2025 [facility] Comment on above: Expected: 04/16/2024 (Approximate), Expi res: 04/16/2025 Start: 04-16-2024 End: 04-16-2025 Comprehensive metabolic 1998 panel - Serum or Plasma Comprehensive metabolic panel Lab Routine Other systemic lupus erythematosus with lung involvement (HCC) Expected: 04/16/2024 (Approximate), Expires: 04/16/2025 [facility] Comment on above: Expected: 04/16/2024 (Approximate), Expi res: 04/16/2025 Start: 04-16-2024 End: 04-16-2025 Erythrocyte sedimentation rate Sedimentation rate, automated Lab Routine Other systemic lupus erythematosus with lung involvement (HCC) Expected: 04/16/2024 (Approximate), Expires: 04/16/2025 [facility] Comment on above: Expected: 04/16/2024 (Approximate), Expi res: 04/16/2025 Start: 04-16-2024 End: 04-16-2025 Immunofixation Electrophoresis Immunofixation Electrophoresis Lab Routine Other systemic lupus erythematosus with lung involvement (HCC) Expected: 04/16/2024 (Approximate), Expires: 04/16/2025 [facility] Comment on above: Expected: 04/16/2024 (Approximate), Expi res: 04/16/2025 Start: 04-16-2024 End: 04-16-2025 Nuclear Ab [Titer] in Serum by Immunofluorescence KELLEY Lab Routine Other systemic lupus erythematosus with lung involvement (HCC) Expected: 04/16/2024 (Approximate), Expires: 04/16/2025 [facility] Work Phone: Comment on above: Expected: 04/16/2024 (Approximate), Expi res: 04/16/2025 Start: 04-16-2024 End: 04-16-2025 Thyrotropin [Units/volume] in Serum or Plasma TSH Lab Routine Other systemic lupus erythematosus with lung involvement (HCC) Expected: 04/16/2024 (Approximate), Expires: 04/16/2025 [facility] Comment on above: Expected: 04/16/2024 (Approximate), Expi res: 04/16/2025 Start: 04-16-2024 End: 04-16-2025 Vitamin B6 Vitamin B6 Lab Routine Other systemic lupus erythematosus with lung involvement (HCC) Expected: 04/16/2024 (Approximate), Expires: 04/16/2025 [facility] Comment on above: Expected: 04/16/2024 (Approximate), Expi res: 04/16/2025 Start: 04-16-2024 End: 04-16-2024 Patient encounter procedure 04/16/2024 9:15 AM EST Office Visit [facility] [address] [place] [address] [place] [address] Zarina Slaughter MD [address] [place] [id number] [facility] Start: 03-05-2024 End: 03-05-2024 Patient encounter procedure 03/05/2024 9:45 AM EST Office Visit [facility] [address] [place] [address] [place] [address] Zarina Slaughter MD [address] [place] [address] [place] [address] [facility] Start: 01-02-2024 End: 01-02-2024 Patient encounter procedure 01/02/2024 1:45 PM EST Office Visit Neurology [facility] [address] [place] [address] Vickie Chavez APRN.SUPERVISOR [employer] [address] [place] [address] Botox Neurology [facility] Comment on above: Botox Start: 10-31-2023 Screening for malignant neoplasm of cervix Pap Smear [facility] Start: 10-12-2023 COVID-19 Vaccine ( season) COVID-19 Vaccine () [facility] Start: 10-12-2023 Influenza vaccination [facility] Start: 08-27-2023 End: 08-27-2023 Patient encounter procedure 08/27/2023 1:00 PM EDT Office Visit Neurology [facility] [address] [place] [address] [place] [address] [place] [address] Follow up with Sree per MD Freedman Neurology [facility] Comment on above: Follow up with Sree per MD Freedman Start: 07-01-2023 End: 07-01-2023 Patient encounter procedure 07/01/2023 9:30 AM EDT Office Visit Neurology [facility] [address] [place] [address] Richy Freedman, LINUX SUPPORT ENGINEER.SUPERVISOR [employer] [address] [place] [address] Neurology [facility] Start: 02-10-2023 Behavioral Health Screening Behavioral Health Screening [facility] Start: 02-10-2023 Depression Assessment Depression Assessment [facility] Start: 10-11-2022 Covid-19 Vaccine () Covid-19 Vaccine () [facility] Start: 10-11-2022 Influenza vaccination Influenza Vaccine (#1) [facility] Start: 2021 DTaP/Tdap/Td Vaccines (1 - Tdap) DTaP/Tdap/Td Vaccines (1 - Tdap) [facility] Start: 2021 Hepatitis B Vaccine (1 of 3 - 19+ 3-dose series) Hepatitis B Vaccine (1 of 3 - 19+ 3-dose series) [facility] Start: 2021 Hepatitis B Vaccines (1 of 3 - 19+ 3-dose series) Hepatitis B Vaccines (1 of 3 - 19+ 3-dose series) [facility] Start: 2021 Urine microalbumin profile DTaP,Tdap,Td Vaccine (1 - Tdap) [facility] Start: 2020 Anxiety Screening Anxiety Screening [facility] Start: 2020 Depression Screening Depression Screening [facility] Start: 2020 Diabetes mellitus screening Diabetes Screening [facility] Start: 2020 GC (Gonorrhea) Screening (18-24) GC (Gonorrhea) Screening (18-24) [facility] Start: 2020 Hepatitis C screening Hepatitis C Screening [facility] Start: 2020 HIV screening HIV Screening [facility] Start: 2020 Screening for Chlamydia trachomatis Chlamydia Screening (18-) [facility] Start: 2018 Meningococcal B Vaccine (1 of 2 - Standard) Meningococcal B Vaccine (1 of 2 - Standard) [facility] Start: 2018 Meningococcal B Vaccine: Consider Based On Risk (1 of 2 - Patient Seeks Protection) Meningococcal B Vaccine: Consider Based On Risk (1 of 2 - Patient Seeks Protection) [facility] Start: 2017 HPV Vaccine (1 - 3-dose series) HPV Vaccine (1 - 3-dose series) [facility] Start: 2017 HPV Vaccines (1 - 3-dose series) HPV Vaccines (1 - 3-dose series) [facility] Start: 2016 Peds To Adult Transition Annual Assessment Peds To Adult Transition Annual Assessment [facility] Start: 10-31-2015 Varicella vaccination Varicella Vaccines (1 of 2 - 13+ 2-dose series) [facility] Start: 2014 Depression Screening Depression Screening [facility] Start: 2014 Peds To Adult Transition Initial Discussion Peds To Adult Transition Initial Discussion [facility] Start: 10-31-2011 HPV Vaccine (1 - 2-dose series) HPV Vaccine (1 - 2-dose series) [facility] Start: 10-31-2003 MMR Vaccines (1 of 1 - Standard series) MMR Vaccines (1 of 1 - Standard series) [facility] Start: 04-30-2003 Covid-19 Vaccine (#1) Covid-19 Vaccine (#1) [facility] Start: 2002 Hepatitis B Vaccine (1 of 3 - 3-dose series) Hepatitis B Vaccine (1 of 3 - 3-dose series) [facility] Start: 2002 HIV screening HIV Screening [facility] IgG, IgA, IgM IgG, IgA, IgM La b Routine Other systemic lupus erythematosus with lung involvement (HCC) Ordered: 04/16/2024 [facility] Comment on above: Ordered: 04/16/2024 Immunofixation Electrophoresis Immunofixation Electrophoresis Lab Routine Other systemic lupus erythematosus with lung involvement (HCC) Ordered: 04/16/2024 [facility] Comment on above: Ordered: 04/16/2024 SJOGREN'S ANTIBODIES (SS-A,SS-B) ([facility]) Sjogren's Antibodies (SS-A,SS-B) ([facility]) Lab Routine Other systemic lupus erythematosus with lung involvement (HCC) Ordered: 04/16/2024 [facility] Comment on above: Ordered: 04/16/2024 [facility] P[facility] Date Payer Category Payer Self-pay 2023 Commercial Managed C are - O [facility] [id number] 2023 Private Health Insurance YANG VERGARA OAP [id number] 2023-Present [phone] [address] [place] [address] Open Access [id number] 2023 Private Health Insurance [id number] 2022 Unknown [employer] PPO [id number] 2022-Present [phone] [address] [place] [address] PPO [id number] 2022 Unknown [id number] 2002 Unknown [id number] 2002 Unknown [id number] 2002 Unknown [id number] 1974 Unknown [id number] Private Health Insurance [id number] Unknown [id number] Unknown [id number] Unknown [id number] Unknown [id number] Social History Date Type Detail Facility Start: 12-20-2022 End: 03-05-2024 Tobacco smoking status NHIS Never smoked tobacco [facility] Work Phone: Start: 12-20-2022 End: 03-05-2024 Tobacco use and exposure Smokeless tobacco non-user [facility] Work Phone: Start: 04-01-2023 End: 07-19-2024 Alcohol intake Lifetime non-drinker (finding) [facility] Start: 04-01-2023 End: 07-19-2024 History of Social function [facility] Start: 04-01-2023 End: 07-19-2024 Tobacco use panel [facility] Adult Depression Screening Assessment 2 [facility] Start: 2002 Sex Assigned At Not on file [facility] Tobacco smoking status [facility] Tobacco smoking consumption unknown [facility] Start: 12-10-2023 End: 04-29-2024 Sex Female (finding) [facility] Start: 2002 Sex Assigned At Female W [facility] NEGATED: Highlighted rowStart: NINF History of tobacco use Passive smoker [facility] Clinical Notes 12-20-2022 to 07-19-2024 Zarina Slaughter MD - 07/19/2024 9:45 AM Jeana Slaughter MD - 07/19/2024 9:45 AM EDIngris Slaughter MD - 07/19/2024 9:45 AM Jeana Slaughter MD - 07/19/2024 9:45 AM EDTPatient Instructions Note Date & Type Note Facility 07-19-2024 History of Present illness Narrative Error Department of Neurological Sciences Visit Note CHIEF COMPLAINT: Chief Complaint Patient presents with Migraine Main diagnoses: Chronic migraine without aura, intractable HISTORY OF PRESENT ILLNESS: The patient is a 23 y.o. female today presents to the Neurology clinic with history of chronic migraine without aura, intractable. The patient presented to the neurology clinic accompanied by her father. Patient had a diagnosis of chronic migraine without aura, intractable. In addition, patient appeared to have a diagnosis of functional neurological symptoms with headache. Patient reports that she is still have headaches on a daily basis. Reports that she have currently a headache but she does not appear to be in any pain. The past 18 months patient had tried multiple preventative as well as abortive medications without any significant success. Patient initially was treated at [facility] headache unit where she received treatment with Adderall, topiramate, Pamelor, amovig and Botox injection. Patient did not have any significant improvement in headache frequency and severity. Approximately 6 months ago patient was referred for 2 hours here at [facility] neurology. Again patient was complaining of daily headache. Tried different treatments both preventative as well as abortive treatments unsuccessfully. Patient even had tried vagal stimulation with Cefaly as well as Nerivio. From June after the last clinic visit patient was referred to ENT as well as rheumatology for evaluation. Patient evaluation were unremarkable. No significant diagnosis was made. Since we are now progressing in terms of controlling patient's headache I suggest the patient and her father to refer her to a tertiary headache center such as [facility]. Patient agree with this suggestion. I think she will benefit from a team approach to her headaches especially with psychology and psychiatric involved. Secundary diagnoses: Functional neurological symptoms with headaches Medications: Current Medications[1] Allergies: Milk (cow) Social History: Social History Socioeconomic History Marital status: Single Spouse name: Not on file Number of children: Not on file Years of education: Not on file Highest education level: Not on file Occupational History Not on file Tobacco Use Smoking status: Never Smokeless tobacco: Never Substance and Sexual Activity Alcohol use: Never Drug use: Never Sexual activity: Never Other Topics Concern Not on file Social History Narrative Not on file Social Drivers of Health Financial Resource Strain: Not on file Food Insecurity: Not on file Transportation Needs: Not on file Physical Activity: Not on file Stress: Not on file Social Connections: Not on file Intimate Partner Violence: Not on file Housing Stability: Not on file Family History: Family History[2] REVIEW OF SYSTEMS: Review of Systems Constitutional: Negative. HENT: Negative. Phonophobia. Eyes: Positive for photophobia and visual disturbance. Respiratory: Negative. Cardiovascular: Positive for palpitations. Gastrointestinal: Positive for nausea and vomiting. Endocrine: Negative. Genitourinary: Negative. Musculoskeletal: Positive for neck stiffness. Skin: Negative. Allergic/Immunologic: Negative. Neurological: Positive for dizziness, light-headedness and headaches. Hematological: Negative. Psychiatric/Behavioral: Negative. PHYSICAL EXAM: Vitals: BP 123/67 (BP Location: Right arm, Patient Position: Sitting, BP Cuff Size: Adult) Pulse 76 Wt 127 lb 8 oz (57.8 kg) BMI 22.59 kg/m Physical Exam Constitutional: Appearance: Normal appearance. HENT: Head: Normocephalic and atraumatic. Nose: Nose normal. Mouth/Throat: Mouth: Mucous membranes are moist. Pharynx: Oropharynx is clear. Eyes: General: Vision grossly intact. Gaze aligned appropriately. Extraocular Movements: Extraocular movements intact. Conjunctiva/sclera: Conjunctivae normal. Pupils: Pupils are equal, round, and reactive to light. Neck: Trachea: Trachea and phonation normal. Cardiovascular: Rate and Rhythm: Normal rate and regular rhythm. Pulses: Normal pulses. Heart sounds: Normal heart sounds. Pulmonary: Effort: Pulmonary effort is normal. Breath sounds: Normal breath sounds. Abdominal: General: Abdomen is flat. Bowel sounds are normal. Palpations: Abdomen is soft. Musculoskeletal: General: Normal range of motion. Cervical back: Normal range of motion and neck supple. Skin: General: Skin is warm and dry. Neurological: General: No focal deficit present. Mental Status: She is alert and oriented to person, place, and time. Mental status is at baseline. Cranial Nerves: Cranial nerves 2-12 are intact. Deep Tendon Reflexes: Reflexes are normal and symmetric. Reflex Scores: Tricep reflexes are 2+ on the right side and 2+ on the left side. Bicep reflexes are 2+ on the right side and 2+ on the left side. Brachioradialis reflexes are 2+ on the right side and 2+ on the left side. Patellar reflexes are 2+ on the right side and 2+ on the left side. Achilles reflexes are 2+ on the right side and 2+ on the left side. Psychiatric: Attention and Perception: Attention normal. Mood and Affect: Mood normal. Speech: Speech normal. Behavior: Behavior normal. Behavior is cooperative. Thought Content: Thought content normal. Cognition and Memory: Cognition normal. Judgment: Judgment normal. Impression: Diagnosis Plan 1. 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 Functional neurological symptom disorder with attacks or seizures Plan: 2. We are going to refer patient to [facility] for evaluation of her chronic migraine as well as functional headache. 2. Patient will return to the neurology clinic on as-needed basis. Thank you Zarina Slaughter MD [1] Current Outpatient Medications Medication Sig Dispense Refill drospirenone-ethinyl estradiol (Zumandimine) 3-0.03 MG tablet Take 1 tablet by mouth daily. escitalopram (Lexapro) 20 MG tablet Take 20 mg by mouth daily. ondansetron (Zofran) 4 MG tablet Take 4 mg by mouth every 8 hours as needed for nausea or vomiting. No current facility-administered medications for this visit. [2] Family History Problem Relation Name Age of Onset Depression Mother Tory Stroke Maternal Grandfather Kenney Stroke Mother's Brother Arron documented in this encounter [facility] 07-19-2024 History of Present illness Narrative Error Department of Neurological Sciences Visit Note CHIEF COMPLAINT: Chief Complaint Patient presents with Migraine Main diagnoses: Chronic migraine without aura, intractable HISTORY OF PRESENT ILLNESS: The patient is a 23 y.o. female today presents to the Neurology clinic with history of chronic migraine without aura, intractable. The patient presented to the neurology clinic accompanied by her father. Patient had a diagnosis of chronic migraine without aura, intractable. In addition, patient appeared to have a diagnosis of functional neurological symptoms with headache. Patient reports that she is still have headaches on a daily basis. Reports that she have currently a headache but she does not appear to be in any pain. The past 18 months patient had tried multiple preventative as well as abortive medications without any significant success. Patient initially was treated at [facility] headache unit where she received treatment with Adderall, topiramate, Pamelor, amovig and Botox injection. Patient did not have any significant improvement in headache frequency and severity. Approximately 6 months ago patient was referred for 2 hours here at [facility] neurology. Again patient was complaining of daily headache. Tried different treatments both preventative as well as abortive treatments unsuccessfully. Patient even had tried vagal stimulation with Cefaly as well as Nerivio. From June after the last clinic visit patient was referred to ENT as well as rheumatology for evaluation. Patient evaluation were unremarkable. No significant diagnosis was made. Since we are now progressing in terms of controlling patient's headache I suggest the patient and her father to refer her to a tertiary headache center such as [facility] [place]. Patient agree with this suggestion. I think she will benefit from a team approach to her headaches especially with psychology and psychiatric involved. Secundary diagnoses: Functional neurological symptoms with headaches Medications: Current Medications[1] Allergies: Milk (cow) Social History: Social History Socioeconomic History Marital status: Single Spouse name: Not on file Number of children: Not on file Years of education: Not on file Highest education level: Not on file Occupational History Not on file Tobacco Use Smoking status: Never Smokeless tobacco: Never Substance and Sexual Activity Alcohol use: Never Drug use: Never Sexual activity: Never Other Topics Concern Not on file Social History Narrative Not on file Social Drivers of Health Financial Resource Strain: Not on file Food Insecurity: Not on file Transportation Needs: Not on file Physical Activity: Not on file Stress: Not on file Social Connections: Not on file Intimate Partner Violence: Not on file Housing Stability: Not on file Family History: Family History[2] REVIEW OF SYSTEMS: Review of Systems Constitutional: Negative. HENT: Negative. Phonophobia. Eyes: Positive for photophobia and visual disturbance. Respiratory: Negative. Cardiovascular: Positive for palpitations. Gastrointestinal: Positive for nausea and vomiting. Endocrine: Negative. Genitourinary: Negative. Musculoskeletal: Positive for neck stiffness. Skin: Negative. Allergic/Immunologic: Negative. Neurological: Positive for dizziness, light-headedness and headaches. Hematological: Negative. Psychiatric/Behavioral: Negative. PHYSICAL EXAM: Vitals: BP 123/67 (BP Location: Right arm, Patient Position: Sitting, BP Cuff Size: Adult) Pulse 76 Wt 127 lb 8 oz (57.8 kg) BMI 22.59 kg/m Physical Exam Constitutional: Appearance: Normal appearance. HENT: Head: Normocephalic and atraumatic. Nose: Nose normal. Mouth/Throat: Mouth: Mucous membranes are moist. Pharynx: Oropharynx is clear. Eyes: General: Vision grossly intact. Gaze aligned appropriately. Extraocular Movements: Extraocular movements intact. Conjunctiva/sclera: Conjunctivae normal. Pupils: Pupils are equal, round, and reactive to light. Neck: Trachea: Trachea and phonation normal. Cardiovascular: Rate and Rhythm: Normal rate and regular rhythm. Pulses: Normal pulses. Heart sounds: Normal heart sounds. Pulmonary: Effort: Pulmonary effort is normal. Breath sounds: Normal breath sounds. Abdominal: General: Abdomen is flat. Bowel sounds are normal. Palpations: Abdomen is soft. Musculoskeletal: General: Normal range of motion. Cervical back: Normal range of motion and neck supple. Skin: General: Skin is warm and dry. Neurological: General: No focal deficit present. Mental Status: She is alert and oriented to person, place, and time. Mental status is at baseline. Cranial Nerves: Cranial nerves 2-12 are intact. Deep Tendon Reflexes: Reflexes are normal and symmetric. Reflex Scores: Tricep reflexes are 2+ on the right side and 2+ on the left side. Bicep reflexes are 2+ on the right side and 2+ on the left side. Brachioradialis reflexes are 2+ on the right side and 2+ on the left side. Patellar reflexes are 2+ on the right side and 2+ on the left side. Achilles reflexes are 2+ on the right side and 2+ on the left side. Psychiatric: Attention and Perception: Attention normal. Mood and Affect: Mood normal. Speech: Speech normal. Behavior: Behavior normal. Behavior is cooperative. Thought Content: Thought content normal. Cognition and Memory: Cognition normal. Judgment: Judgment normal. Impression: Diagnosis Plan 1. 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 Functional neurological symptom disorder with attacks or seizures Plan: 2. We are going to refer patient to [facility] for evaluation of her chronic migraine as well as functional headache. 2. Patient will return to the neurology clinic on as-needed basis. Thank you Zarina Slaughter MD [1] Current Outpatient Medications Medication Sig Dispense Refill drospirenone-ethinyl estradiol (Zumandimine) 3-0.03 MG tablet Take 1 tablet by mouth daily. escitalopram (Lexapro) 20 MG tablet Take 20 mg by mouth daily. ondansetron (Zofran) 4 MG tablet Take 4 mg by mouth every 8 hours as needed for nausea or vomiting. No current facility-administered medications for this visit. [2] Family History Problem Relation Name Age of Onset Depression Mother Tory Stroke Maternal Grandfather Kenney Stroke Mother's Brother Arron documented in this encounter [facility] 07-19-2024 Miscellaneous Notes Addended by: ZARINA SLAUGHTER on: 07/21/2024 06:47 AM Modules accepted: Orders documented in this encounter [facility] 07-19-2024 Note Addended by: ZARINA WORKMAN on: 07/21/2024 06:47 AM Modules accepted: Orders [facility] 04-16-2024 History of Present illness Narrative 1. Department of Neurological Sciences Visit Note CHIEF COMPLAINT: Chief Complaint Patient presents with Follow-up Migraine Main diagnoses: Chronic migraine without aura, intractable HISTORY OF PRESENT ILLNESS: The patient is a 23 y.o. female today presents to the Neurology clinic with history of chronic migraine without aura, intractable. Today patient presented to the neurology clinic for a follow-up visit. Patient had a diagnosis of chronic migraine without aura, intractable. After her last clinic visit to the neurology clinic patient had Botox injections into the scalp and posterior cervical muscles. Unfortunately today patient presented she reports that she does not have any significant improvement in her headaches. Patient complaining of severe headaches when she does not show any signs of severe pain. As a matter of hide patient is laughing most of the time during the clinic visit. Prior to [facility] patient was evaluated at [facility] were she has not complete workup and multiple preventative treatments also without any improvement. Patient reports that perhaps she needs to be evaluated by defense analyst or ENT. I fully agree with the patient.Today we are going to obtain laboratory testing for the most common autoimmune diseases. And then we will be able to refer patient to rheumatology. Secundary diagnoses: Depression, anxiety Medications: Current Outpatient Medications Medication Sig Dispense Refill drospirenone-ethinyl estradiol (Zumandimine) 3-0.03 MG tablet Take 1 tablet by mouth daily. escitalopram (Lexapro) 20 MG tablet Take 20 mg by mouth daily. ondansetron (Zofran) 4 MG tablet Take 4 mg by mouth every 8 hours as needed for nausea or vomiting. No current facility-administered medications for this visit. Allergies: Milk (cow) Social History: Social History Socioeconomic History Marital status: Single Spouse name: Not on file Number of children: Not on file Years of education: Not on file Highest education level: Not on file Occupational History Not on file Tobacco Use Smoking status: Never Smokeless tobacco: Never Substance and Sexual Activity Alcohol use: Never Drug use: Never Sexual activity: Never Other Topics Concern Not on file Social History Narrative Not on file Social Drivers of Health Financial Resource Strain: Not on file Food Insecurity: Not on file Transportation Needs: Not on file Physical Activity: Not on file Stress: Not on file Social Connections: Not on file Intimate Partner Violence: Not on file Housing Stability: Not on file Family History: Family History Problem Relation Name Age of Onset Depression Mother Tory Stroke Maternal Grandfather Kenney Stroke Mother's Brother Arron REVIEW OF SYSTEMS: Review of Systems Constitutional: Negative. HENT: Negative. Phonophobia. Eyes: Positive for photophobia and visual disturbance. Respiratory: Negative. Cardiovascular: Positive for palpitations. Gastrointestinal: Positive for nausea and vomiting. Endocrine: Negative. Genitourinary: Negative. Musculoskeletal: Positive for neck stiffness. Skin: Negative. Allergic/Immunologic: Negative. Neurological: Positive for dizziness, light-headedness and headaches. Hematological: Negative. Psychiatric/Behavioral: Negative. PHYSICAL EXAM: Vitals: BP 129/76 (BP Location: Left arm, Patient Position: Sitting, BP Cuff Size: Adult) Pulse 79 Ht 5' 3 (1.6 m) Wt 123 lb (55.8 kg) BMI 21.79 kg/m Physical Exam Constitutional: Appearance: Normal appearance. HENT: Head: Normocephalic and atraumatic. Nose: Nose normal. Mouth/Throat: Mouth: Mucous membranes are moist. Pharynx: Oropharynx is clear. Eyes: General: Vision grossly intact. Gaze aligned appropriately. Extraocular Movements: Extraocular movements intact. Conjunctiva/sclera: Conjunctivae normal. Pupils: Pupils are equal, round, and reactive to light. Neck: Trachea: Trachea and phonation normal. Cardiovascular: Rate and Rhythm: Normal rate and regular rhythm. Pulses: Normal pulses. Heart sounds: Normal heart sounds. Pulmonary: Effort: Pulmonary effort is normal. Breath sounds: Normal breath sounds. Abdominal: General: Abdomen is flat. Bowel sounds are normal. Palpations: Abdomen is soft. Musculoskeletal: General: Normal range of motion. Cervical back: Normal range of motion and neck supple. Skin: General: Skin is warm and dry. Neurological: General: No focal deficit present. Mental Status: She is alert and oriented to person, place, and time. Mental status is at baseline. Cranial Nerves: Cranial nerves 2-12 are intact. Deep Tendon Reflexes: Reflexes are normal and symmetric. Reflex Scores: Tricep reflexes are 2+ on the right side and 2+ on the left side. Bicep reflexes are 2+ on the right side and 2+ on the left side. Brachioradialis reflexes are 2+ on the right side and 2+ on the left side. Patellar reflexes are 2+ on the right side and 2+ on the left side. Achilles reflexes are 2+ on the right side and 2+ on the left side. Psychiatric: Attention and Perception: Attention normal. Mood and Affect: Mood normal. Speech: Speech normal. Behavior: Behavior normal. Behavior is cooperative. Thought Content: Thought content normal. Cognition and Memory: Cognition normal. Judgment: Judgment normal. Impression: Diagnosis Plan 1. 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 At this time we are going to maintain patient on same medications same doses. 2. In addition we are going to submit laboratory testing for autoimmune disease. 3. Patient will follow in the neurology clinic as needed. In addition patient is going to be evaluated by rheumatology. Thank you Zarina Slaughter MD documented in this encounter [facility] 03-05-2024 History of Present illness Narrative Department of Neurological Sciences Visit Note CHIEF COMPLAINT: Chief Complaint Patient presents with Follow-up Main diagnoses: Chronic migraine without aura, intractable HISTORY OF PRESENT ILLNESS: The patient is a 23 y.o. female today presents to the Neurology clinic with chronic migraine without aura, intractable. Today patient presented to the neurology clinic for a follow-up visit. Patient reports that Qulipta is not working well. She is still have headaches almost on a daily basis. Patient has a long history of chronic migraine without aura. Initially she was diagnosed at [facility]. Subsequently patient transferred to [facility] and now she follows up at [facility]. Patient has at least 4 days with headache a month. In the past patient had received treatment with almost all preventive medication. Patient recalled that at 1 time she received further treatment with Botox injections and she did well. Since patient has failed almost all preventive medications we are going to repeat the treatment with Tommy we will be using a free sample of Botox 200 units. Then we will see whether or not patient had a better response than with Qulipta. Secundary diagnoses: None Medications: Current Outpatient Medications Medication Sig Dispense Refill drospirenone-ethinyl estradiol (Zumandimine) 3-0.03 MG tablet Take 1 tablet by mouth daily. escitalopram (Lexapro) 20 MG tablet Take 20 mg by mouth daily. No current facility-administered medications for this visit. Allergies: Milk (cow) Social History: Social History Socioeconomic History Marital status: Single Spouse name: Not on file Number of children: Not on file Years of education: Not on file Highest education level: Not on file Occupational History Not on file Tobacco Use Smoking status: Never Smokeless tobacco: Never Substance and Sexual Activity Alcohol use: Never Drug use: Never Sexual activity: Never Other Topics Concern Not on file Social History Narrative Not on file Social Drivers of Health Financial Resource Strain: Not on file Food Insecurity: Not on file Transportation Needs: Not on file Physical Activity: Not on file Stress: Not on file Social Connections: Not on file Intimate Partner Violence: Not on file Housing Stability: Not on file Family History: Family History Problem Relation Name Age of Onset Depression Mother Tory Stroke Maternal Grandfather Kenney Stroke Mother's Brother Arron REVIEW OF SYSTEMS: Review of Systems Constitutional: Positive for fatigue. HENT: Negative. Phonophobia Eyes: Positive for photophobia and visual disturbance. Respiratory: Negative. Cardiovascular: Positive for palpitations. Gastrointestinal: Positive for nausea and vomiting. Endocrine: Negative. Genitourinary: Negative. Musculoskeletal: Positive for myalgias, neck pain and neck stiffness. Skin: Negative. Allergic/Immunologic: Negative. Neurological: Positive for dizziness, light-headedness and headaches. Hematological: Negative. Psychiatric/Behavioral: Positive for decreased concentration. The patient is nervous/anxious. PHYSICAL EXAM: Vitals: BP 127/67 (BP Location: Right arm) Pulse 76 Temp 36.7 C (98.1 F) (Infrared) Ht 5' 3 (1.6 m) Wt 123 lb (55.8 kg) BMI 21.79 kg/m Physical Exam Constitutional: Appearance: Normal appearance. HENT: Head: Normocephalic and atraumatic. Nose: Nose normal. Mouth/Throat: Mouth: Mucous membranes are moist. Pharynx: Oropharynx is clear. Eyes: General: Vision grossly intact. Gaze aligned appropriately. Extraocular Movements: Extraocular movements intact. Conjunctiva/sclera: Conjunctivae normal. Pupils: Pupils are equal, round, and reactive to light. Neck: Trachea: Trachea and phonation normal. Cardiovascular: Rate and Rhythm: Normal rate and regular rhythm. Pulses: Normal pulses. Heart sounds: Normal heart sounds. Pulmonary: Effort: Pulmonary effort is normal. Breath sounds: Normal breath sounds. Abdominal: General: Abdomen is flat. Bowel sounds are normal. Palpations: Abdomen is soft. Musculoskeletal: General: Normal range of motion. Cervical back: Normal range of motion and neck supple. Skin: General: Skin is warm and dry. Neurological: General: No focal deficit present. Mental Status: She is alert and oriented to person, place, and time. Mental status is at baseline. Cranial Nerves: Cranial nerves 2-12 are intact. Coordination: Rapid alternating movements normal. Deep Tendon Reflexes: Reflexes are normal and symmetric. Reflex Scores: Tricep reflexes are 2+ on the right side and 2+ on the left side. Bicep reflexes are 2+ on the right side and 2+ on the left side. Brachioradialis reflexes are 2+ on the right side and 2+ on the left side. Patellar reflexes are 2+ on the right side and 2+ on the left side. Achilles reflexes are 2+ on the right side and 2+ on the left side. Psychiatric: Attention and Perception: Attention normal. Mood and Affect: Mood normal. Speech: Speech normal. Behavior: Behavior normal. Behavior is cooperative. Thought Content: Thought content normal. Cognition and Memory: Cognition normal. Judgment: Judgment normal. Impression: Diagnosis Plan 1. Intractable chronic migraine without aura and without status migrainosus onabotulinumtoxinA (Botox) injection 200 Units Plan: 1. Since patient Qulipta are not working well we are going to discontinue Qulipta. 2. In addition we are going to try Botox injections into the scalp and posterior cervical muscles with a free sample from [employer]. 3. Patient will return to the neurology clinic in 6 weeks to see whether or not Botox works. BOTOX PROCEDURE NOTE FOR HEADACHE BOTOX FREE SAMPLE Procedure: Botox injections into the scalp today cervical muscles Prior to procedure risks, benefits, alternatives, and potential side effects were reviewed with patient. Specifically reviewed possible risk of temporary muscle weakness. All questions were answered, patient expressed understanding, verbal consent given for procedure. No numbing spray applied/removed. Botox was injected with the parameters below: With the patient in sitting position, she received Botox injections in the neck and skull muscles. Patient receive the following doses: 1. R Frontalis 10 units 2. L Frontalis 10 units 3. R Rn Tele 10 units 4. L Rn Tele 10 units 5. R Temporalis 30 units 6. L Temporalis 30 units 7. R Occipitalis 30 units 8. L Occipitalis 30 units 9. R Trapezious 20 units 10.L Trapezious 20 units Total units injected 200 units. Units discarded 0 units. Comments: Patient received her first treatment with Botox injections. Patient was injected with 200 units in the scalp and posterior cervical muscles. Patient was instructed to pay attention to headache frequency and severity to determine whether or not Botox is working well. Patient will return to the neurology clinic in 6 weeks for further evaluation. Thank you [x] Pt tolerated procedure well. Pt advised to avoid exercise or strenuous physical activity for 24 hours. Post treatment expectations reviewed in detail. Zarina Slaughter MD Administrations This Visit onabotulinumtoxin A (BOTOX) injection 200 Units Admin Date 03/05/2024 Action Given Dose 200 Units Route IntraMUSCular Site Other [place] [facility] [place] Provider: Zarina Slaughter MD [facility]:[id number] Lot#: [id number] Baker Second: allergan Patient Supplied?: NO, FREE SAMPLE documented in this encounter [facility] 02-05-2024 History of Present illness Narrative Botox in Sep. There was not much of a difference. Department of Neurological Sciences Initial Consult Note CHIEF COMPLAINT: Chief Complaint Patient presents with New Patient Chronic daily headaches Reason for Consult: Chronic daily headache. HISTORY OF PRESENT ILLNESS: The patient is a 23 y.o. female who presents with history of chronic daily headache, patient presents to the neurology clinic for evaluation and treatment of her chronic daily headache. Patient reports that she has a long history of headaches. Her headaches is*approximately 7 years ago. Initially patient was treated at [facility]. Subsequently patient transferred to [facility] for medication for further evaluation and treatment. Over the past 7 years patient has been treated for multiple preventive medications including amitriptyline, Inderal, topiramate, Ajovy, and 1 treatment with Botox injections. Patient reports that no of these medications has improved her headaches at all. She denied any side effects from medication. Her headaches usually are unilateral or bilateral. The pain is a throbbing. Patient denies any significant photophobia or phonophobia. Patient reports that only occasionally she developed nausea. Patient reports that headache almost every single day every month. At the time her daily headaches are quite severe sometimes are very mild. So far patient has not responded to any treatment for migraine headaches. Patient rates her pain levels between 5-7 patient does not appear to be in any severe pain. Patient denied taking any orals. There is family history of migraine headaches parents younger sister appear to have migraine headaches. Patient denied any focal weakness or numbness. Patient normally have headache on a daily basis as well as has 1 time. Patient reports that in the past she has an MRI of the brain. We have a copy of the report from 2018 which was unremarkable. Since then patient has had no any new symptoms associated with her headaches. There is no significant correlation between patient behavior and the severity of her headaches. Past Medical History: No past medical history on file. Past Surgical History: No past surgical history on file. Medications: Current Outpatient Medications Medication Sig Dispense Refill drospirenone-ethinyl estradiol (Zumandimine) 3-0.03 MG tablet Take 1 tablet by mouth daily. escitalopram (Lexapro) 20 MG tablet Take 20 mg by mouth daily. No current facility-administered medications for this visit. Allergies: Milk (cow) Social History: Social History Socioeconomic History Marital status: Single Spouse name: Not on file Number of children: Not on file Years of education: Not on file Highest education level: Not on file Occupational History Not on file Tobacco Use Smoking status: Not on file Smokeless tobacco: Not on file Substance and Sexual Activity Alcohol use: Not on file Drug use: Not on file Sexual activity: Not on file Other Topics Concern Not on file Social History Narrative Not on file Social Drivers of Health Financial Resource Strain: Not on file Food Insecurity: Not on file Transportation Needs: Not on file Physical Activity: Not on file Stress: Not on file Social Connections: Not on file Intimate Partner Violence: Not on file Housing Stability: Not on file Family History: No family history on file. REVIEW OF SYSTEMS: Review of Systems PHYSICAL EXAM: Vitals: BP 125/69 Pulse 85 Temp 36 C (96.8 F) Wt 123 lb 3.2 oz (55.9 kg) Physical Exam Constitutional: Appearance: Normal appearance. HENT: Head: Normocephalic and atraumatic. Nose: Nose normal. Mouth/Throat: Mouth: Mucous membranes are moist. Pharynx: Oropharynx is clear. Eyes: General: Vision grossly intact. Gaze aligned appropriately. Extraocular Movements: Extraocular movements intact. Conjunctiva/sclera: Conjunctivae normal. Pupils: Pupils are equal, round, and reactive to light. Neck: Trachea: Trachea and phonation normal. Cardiovascular: Rate and Rhythm: Normal rate and regular rhythm. Pulses: Normal pulses. Heart sounds: Normal heart sounds. Pulmonary: Effort: Pulmonary effort is normal. Breath sounds: Normal breath sounds. Abdominal: General: Abdomen is flat. Bowel sounds are normal. Palpations: Abdomen is soft. Musculoskeletal: General: Normal range of motion. Cervical back: Normal range of motion and neck supple. Skin: General: Skin is warm and dry. Neurological: General: No focal deficit present. Mental Status: She is alert and oriented to person, place, and time. Mental status is at baseline. Cranial Nerves: Cranial nerves 2-12 are intact. Coordination: Rapid alternating movements normal. Deep Tendon Reflexes: Reflexes are normal and symmetric. Reflex Scores: Tricep reflexes are 2+ on the right side and 2+ on the left side. Bicep reflexes are 2+ on the right side and 2+ on the left side. Brachioradialis reflexes are 2+ on the right side and 2+ on the left side. Patellar reflexes are 2+ on the right side and 2+ on the left side. Achilles reflexes are 2+ on the right side and 2+ on the left side. Psychiatric: Attention and Perception: Attention normal. Mood and Affect: Mood normal. Speech: Speech normal. Behavior: Behavior normal. Behavior is cooperative. Thought Content: Thought content normal. Cognition and Memory: Cognition normal. Judgment: Judgment normal. Impression: Diagnosis Plan 1. Chronic daily headache 2. Functional neurological symptom disorder with mixed symptoms Plan: 1. We are going to start patient on a low tyramine diet. Patient was introduced to a low Thyramine diet. 2. In addition we are going to start patient on Qulipta 60 mg 1 tablet p.o. nightly 3. Patient will call the neurology clinic in 2 weeks at that time if Qulipta is not controlling the headache by at least 60% we will bring patient to the office for treatment with Tommy injections with a free sample from [employer]. Thank you Zarina Slaughter MD documented in this encounter [facility] 12-16-2023 Note [address] be [address] d on my schedule for initial evaluation since she has seen neurology in the past. [facility] 12-11-2023 Telephone encounter Note Attempted to call but was on hold for 10 minutes. We do not have an email for the records. Will Call Harpreet and provide fax number [facility] 12-11-2023 Miscellaneous Notes Attempted to call but was on hold for 10 minutes. We do not have an email for the records. Will Call Harpreet and provide fax number Name of caller: Harpreet Contact phone number: [phone] Relationship to Patient: Provider: Dr. Slaughter Practice: [facility] Chief Complaint/Reason for Call: Harpreet states that Mary's previous neurologist with [facility] is requesting to send records to the office for Mary via a secure email to the office if possible and is requesting an address to send to. He states their phone number is [phone] for the [facility], Dr. Jason Balbuena. Harpreet also states he will be reaching out to Mary's primary care provider for a referral to the office as well. Please be advised. Best time of day caller can be reached: Any Patient advised that office/PCP has 24-48 business hours to return their call: Yes documented in this encounter [facility] 12-10-2023 Telephone encounter Note Name of caller: Harpreet Contact phone number: [phone] Relationship to Patient: Father Provider: Dr. Slaughter Practice: [facility] Chief Complaint/Reason for Call: Harpreet states that Mary's previous neurologist with [facility] is requesting to send records to the office for Mary via a secure email to the office if possible and is requesting an address to send to. He states their phone number is [phone] for the [facility], Dr. Jason Balbuena. Harpreet also states he will be reaching out to Mary's primary care provider for a referral to the office as well. Please be advised. Best time of day caller can be reached: Any Patient advised that office/PCP has 24-48 business hours to return their call: Yes [facility] 10-10-2023 Instructions Vickie Chavez APRN.CNP - 10/10/2023 1:30 PM EDT Instruction after Botox injection: - If you have any pain or swelling use ice, 20 min on and 20 min off. Do not rub or massage the area for 24 hrs. - If you have any neck stiffness, you may use heat and do stretching exercises. - This should improve over the next 5 days. - If it does not, call our office at [phone] for further instructions. documented in this encounter [facility] 10-10-2023 History of Present illness Narrative Images from the original note were not included. New Onabotulinum Toxin A (BotoxTM) for Migraine Indication: Chronic Intractable Migraine Treatment #: 1 Referral Expiration: 09/15/2024 Number of moderate-severe migraine days/month: 30 (daily) Number of mild migraine days/month: 0 Number of headache free days/month: 0 (0 headache-free hours) Migraine severity: 09/19 The patient has been assessed for disorders which could contribute to breathing or swallowing difficulty, and there is no contraindication with PREEMPT Botox. There is no documented allergic reaction/hypersensitivity to any botulinum toxin and there is no active infection at proposed injection site. HEADACHE SCORES: 06/29/2023 08/23/2023 10/05/2023 Headache Questions ER visits since last office visit: 0 0 0 Hospital stays since last office visit 0 0 0 Limited ADLs in the last month: 8 8 10 Days missed from work or school in the last month: 4 0 0 Days headache pain free in the last month: 0 0 Days per month with ALL of the following symptoms - decreased productivity, light sensitivity and nausea: 0 0 0 Initial improvement of headache after botox injection at last visit: Not applicable, I did not have a botox injection at my last visit Not applicable, I did not have a botox injection at my last visit Not applicable, I did not have a botox injection at my last visit PRN medication usage in the last month: 8 6 4 Patient impression of improvement since last visit: Minimally improved No change No change 06/29/2023 08/23/2023 10/05/2023 HIT-6 HIT-6 63 (Severe impact) 64 (Severe impact) 62 (Severe impact) 06/29/2023 08/23/2023 10/05/2023 TANA - 2/7 SCORES TANA-2 Score 5 4 4 TANA-7 Score 13 11 9 06/29/2023 08/23/2023 10/05/2023 Migraine Specific QOL - Higher scores indicate better HRQL Role Function-Restrictive Transformed Score (range: 0-100) 34.29 45.71 48.57 Role Function-Preventive Transformed Score (range: 0-100) 75 80 75 Emotional Function Transformed Score (range: 0-100) 53.33 40 40 10/05/2023 08/23/2023 06/29/2023 PHQ-9 Score 6 5 10 BP 110/73 (BP Site: Right Arm, BP Position: Sitting, BP Cuff Size: Regular Adult) Pulse 85 Temp 37 C (98.6 F) Ht 161.5 cm (5' 3.58) Wt 59.2 kg (130 lb 8.2 oz) LMP 09/17/2023 (Within Weeks) BMI 22.70 kg/m Patient name: Mary Curiel : 2000 ALLERGIES Allergen Reactions Milk Containing Pro* Mental Status Change, Other: See Comments Tilactase Other: See Comments Headaches UNIVERSAL PROTOCOL / SAFETY CHECKLIST Procedure: Onabotulinum toxin A for migraine Informed Consent Consent Obtained: Written Republic Protocol A moment to CARE was completed SIGN IN Personnel directly involved with the procedure wore the appropriate PPE Special Equipment: N/A Patient/Surrogate Stated/Verified: Patient name, Date of , Relevant allergies and Intended procedure TIME OUT Intended patient and procedure match the source document(s) Consent documented and matches the intended procedure No relevant labs, photos, and/or imaging studies were applicable for review. No correct side/site applicable for marking and visibility. No medications required for procedure. No fire risk assessment and interventions applicable. No implant(s) inserted. SIGN OUT No specimen collected. No instruments, equipment or retained foreign bodies applicable. Post-procedure follow-up management communicated and Plan of Care Visit completed when applicable Written Consent Obtained: Written Injection Sites Left (Units) Left (Sites) Right (Units) Right (Sites) TOTAL (Units) Rn Tele 5 1 5 1 10 Procerus Units: 5 Sites: 1 5 Frontalis 10 2 10 2 20 Temporalis 20 4 20 4 40 Occipitalis 15 3 15 3 30 Cervical PSP 10 2 10 2 20 Trapezius 15 3 15 3 30 Total Units used: 155 Total Units wasted: 45 Prior Therapies Duration of Use Dose Side effect Anti-Convulsant Gabapentin (Neurontin) Topiramate (Topamax, Trokendi XL, Qudexy) Appetite Suppression Anti-Depressant and Antipsychotic Amitriptyline (Elavil) Escitalopram (Lexapro) Anti-Migraine Sumatriptan (Imitrex, Sumavel) Blood Pressure Propranolol (Inderal) MABs Fremanezumab (Ajovy) Over the Counter Medications Acetaminophen (Tylenol) Acetaminophen/Aspirin/Caffeine (Excedrin, Goody s) Ibuprofen (Advil, Motrin) Vickie Chavez APRN.[employer] Answers submitted by the patient for this visit: Headache Questionnaire (Submitted on 10/05/2023) How many days of work or school have you missed due to headaches in the last month? : 0 In the last month, how many headache days did you experience ALL of the following symptoms: decreased productivity, light sensitivity and nausea?: 0 How many days have you been completely free of headache pain in the last month? : 0 documented in this encounter [facility] 08-27-2023 Telephone encounter Note Botox referral sent to pharmacy Fortunato SEVILLA RN Clinical Apprentice Architect [facility] 08-27-2023 Miscellaneous Notes Botox referral sent to pharmacy Fortunato SEVILLA RN Clinical Apprentice Architect [facility] documented in this encounter [facility] 08-27-2023 Note HNO ID: [id number] Author: JASON BALBUENA MD Service: ? Author Type: Physician Type: Progress Notes Filed: 08/27/2023 14:20 Note Text: HEADACHE MEDICINE ESTABLISHED VISIT August 27, 2023 1:00 PM Answers submitted by the patient for this visit: Headache Questionnaire (Submitted on 08/23/2023) How many days of work or school have you missed due to headaches in the last month? : 0 In the last month, how many headache days did you experience ALL of the following symptoms: decreased productivity, light sensitivity and nausea?: 0 How many days have you been completely free of headache pain in the last month? : 0 HEADACHE SCORES: 03/30/2023 06/29/2023 08/23/2023 Headache Questions ER visits since last office visit: 0 0 0 Hospital stays since last office visit 0 0 0 Limited ADLs in the last month: 7 8 8 Days missed from work or school in the last month: 3 4 0 Days headache pain free in the last month: 0 0 Days per month with ALL of the following symptoms - decreased productivity, light sensitivity and nausea: 0 0 0 Initial improvement of headache after botox injection at last visit: Not applicable, I did not have a botox injection at my last visit Not applicable, I did not have a botox injection at my last visit Not applicable, I did not have a botox injection at my last visit PRN medication usage in the last month: 7 8 6 Patient impression of improvement since last visit: No change Minimally improved No change 03/30/2023 06/29/2023 08/23/2023 HIT-6 HIT-6 61 (Severe impact) 63 (Severe impact) 64 (Severe impact) 03/30/2023 06/29/2023 08/23/2023 TANA - 2/7 SCORES TANA-2 Score 5 5 4 TANA-7 Score 15 13 11 03/30/2023 06/29/2023 08/23/2023 Migraine Specific QOL - Higher scores indicate better HRQL Role Function-Restrictive Transformed Score (range: 0-100) 51.43 34.29 45.71 Role Function-Preventive Transformed Score (range: 0-100) 75 75 80 Emotional Function Transformed Score (range: 0-100) 46.67 53.33 40 08/23/2023 06/29/2023 03/30/2023 PHQ-9 Score 5 10 7 INTERIM HISTORY: Pt last seen on 07/01/23 by KEELEY. She continued to AJOVY at that time in hopes of further improvement. She continues to have daily headaches. Fewer severe ones, fewer mild ones--instead they are all moderate. Discussed Botox. She was agreeable to trial. PAST MEDICAL HISTORY Diagnosis Date Anxiety state Chronic daily headache Current Outpatient Medications Medication Sig escitalopram oxalate (LEXAPRO) 20 mg tablet Take 1 tablet by mouth once daily. No current facility-administered medications for this visit. ALLERGIES Allergen Reactions Milk Containing Pro* Mental Status Change, Other: See Comments PHYSICAL EXAMINATION: 08/27/23 1312 BP: 104/68 Weight: 56.7 kg (125 lb) Height: 160 cm (5' 3) General appearance: Well appearing, alert, in no acute distress, well-hydrated, well nourished. Skin: Skin color, texture, turgor normal, no suspicious rashes or lesions Head: NC/AT Eyes: EOMI Neuro: Negative findings: speech normal, mental status intact, no focal deficits. CN VII intact to facial symmetry, CN VIII intact to hearing. Mary was seen today for follow up. Diagnoses and all orders for this visit: Intractable chronic migraine without aura and without status migrainosus Mary Curiel is a 22 year old year old female, with a history of probable chronic migraine. Her neurological examination is essentially normal at this visit. ICHD-3 Diagnosis: Chronic Migraine Headache (CM) We will get a precert for Onabotulinum Toxin A using the PREEMPT protocol. This patient meets FDA criteria for Chronic Migraine without aura, with mention of intractable migraine, so stated, without mention of status migrainosus. The migraine lasts for greater than 4 hours and has been chronic for more than three months. Onabotulinum Toxin A is FDA approved for chronic migraine. Her headaches have been present for three or more months. Patient will not use in conjunction with CGRP preventive medications. Medication overuse, alternate diagnosis, confounding psychiatric or social stresses have been ruled out as the cause of headaches. Severity: moderate to severe Quality: throbbing Migraine days a month: 30 Headache days a month: 30 Total Headache days a month: 30 Headache free days a month: 0 The following preventative medications have been tried for at least three months without benefit or discontinued due to side effects: Anti-Convulsant Gabapentin (Neurontin) Topiramate (Topamax, Trokendi XL, Qudexy) Appetite Suppression Anti-Depressant and Antipsychotic Amitriptyline (Elavil) Escitalopram (Lexapro) Blood Pressure Propranolol (Inderal) MABs Fremanezumab (Ajovy) The following abortive medications have been tried but require high frequency use which can lead to Medication Overuse Headache: Anti-Migraine Sumatriptan (Imitrex, Sumavel) Over the Counter Medications Acetaminophe (more content not included)... [facility] 08-27-2023 History of Present illness Narrative Images from the original note were not included. HEADACHE MEDICINE ESTABLISHED VISIT August 27, 2023 1:00 PM Answers submitted by the patient for this visit: Headache Questionnaire (Submitted on 08/23/2023) How many days of work or school have you missed due to headaches in the last month? : 0 In the last month, how many headache days did you experience ALL of the following symptoms: decreased productivity, light sensitivity and nausea?: 0 How many days have you been completely free of headache pain in the last month? : 0 HEADACHE SCORES: 03/30/2023 06/29/2023 08/23/2023 Headache Questions ER visits since last office visit: 0 0 0 Hospital stays since last office visit 0 0 0 Limited ADLs in the last month: 7 8 8 Days missed from work or school in the last month: 3 4 0 Days headache pain free in the last month: 0 0 Days per month with ALL of the following symptoms - decreased productivity, light sensitivity and nausea: 0 0 0 Initial improvement of headache after botox injection at last visit: Not applicable, I did not have a botox injection at my last visit Not applicable, I did not have a botox injection at my last visit Not applicable, I did not have a botox injection at my last visit PRN medication usage in the last month: 7 8 6 Patient impression of improvement since last visit: No change Minimally improved No change 03/30/2023 06/29/2023 08/23/2023 HIT-6 HIT-6 61 (Severe impact) 63 (Severe impact) 64 (Severe impact) 03/30/2023 06/29/2023 08/23/2023 TANA - 2/7 SCORES TANA-2 Score 5 5 4 TANA-7 Score 15 13 11 03/30/2023 06/29/2023 08/23/2023 Migraine Specific QOL - Higher scores indicate better HRQL Role Function-Restrictive Transformed Score (range: 0-100) 51.43 34.29 45.71 Role Function-Preventive Transformed Score (range: 0-100) 75 75 80 Emotional Function Transformed Score (range: 0-100) 46.67 53.33 40 08/23/2023 06/29/2023 03/30/2023 PHQ-9 Score 5 10 7 INTERIM HISTORY: Pt last seen on 07/01/23 by KEELEY. She continued to AJOVY at that time in hopes of further improvement. She continues to have daily headaches. Fewer severe ones, fewer mild ones--instead they are all moderate. Discussed Botox. She was agreeable to trial. PAST MEDICAL HISTORY Diagnosis Date Anxiety state Chronic daily headache Current Outpatient Medications Medication Sig escitalopram oxalate (LEXAPRO) 20 mg tablet Take 1 tablet by mouth once daily. No current facility-administered medications for this visit. ALLERGIES Allergen Reactions Milk Containing Pro* Mental Status Change, Other: See Comments PHYSICAL EXAMINATION: 08/27/23 1312 BP: 104/68 Weight: 56.7 kg (125 lb) Height: 160 cm (5' 3) General appearance: Well appearing, alert, in no acute distress, well-hydrated, well nourished. Skin: Skin color, texture, turgor normal, no suspicious rashes or lesions Head: NC/AT Eyes: EOMI Neuro: Negative findings: speech normal, mental status intact, no focal deficits. CN VII intact to facial symmetry, CN VIII intact to hearing. Mary was seen today for follow up. Diagnoses and all orders for this visit: Intractable chronic migraine without aura and without status migrainosus Mary Curiel is a 22 year old year old female, with a history of probable chronic migraine. Her neurological examination is essentially normal at this visit. ICHD-3 Diagnosis: Chronic Migraine Headache (CM) We will get a precert for Onabotulinum Toxin A using the PREEMPT protocol. This patient meets FDA criteria for Chronic Migraine without aura, with mention of intractable migraine, so stated, without mention of status migrainosus. The migraine lasts for greater than 4 hours and has been chronic for more than three months. Onabotulinum Toxin A is FDA approved for chronic migraine. Her headaches have been present for three or more months. Patient will not use in conjunction with CGRP preventive medications. Medication overuse, alternate diagnosis, confounding psychiatric or social stresses have been ruled out as the cause of headaches. Severity: moderate to severe Quality: throbbing Migraine days a month: 30 Headache days a month: 30 Total Headache days a month: 30 Headache free days a month: 0 The following preventative medications have been tried for at least three months without benefit or discontinued due to side effects: Anti-Convulsant Gabapentin (Neurontin) Topiramate (Topamax, Trokendi XL, Qudexy) Appetite Suppression Anti-Depressant and Antipsychotic Amitriptyline (Elavil) Escitalopram (Lexapro) Blood Pressure Propranolol (Inderal) MABs Fremanezumab (Ajovy) The following abortive medications have been tried but require high frequency use which can lead to Medication Overuse Headache: Anti-Migraine Sumatriptan (Imitrex, Sumavel) Over the Counter Medications Acetaminophen (Tylenol) Acetaminophen/Aspirin/Caffeine (Excedrin, Goody s) Ibuprofen (Advil, Motrin) The patient has been assessed for disorders which could contribute to breathing or swallowing difficulty, and there is no contraindication with PREEMPT Botox. There is no documented allergic reaction/hypersensitivity to any botulinum toxin and there is no active infection at proposed injection site Jason Balbuena MD August 27, 2023 2:18 PM documented in this encounter [facility] 07-01-2023 Instructions Richy Freedman APRN.ESMER - 07/01/2023 9:51 AM EDT Continue Ajovy for at least 3 months Consult to acupuncture documented in this encounter [facility] 07-01-2023 History of Present illness Narrative Images from the original note were not included. Outpatient Headache Clinic - Follow Up Visit Accompanied by: Mother Primary Problem List: There is no problem list on file for this patient. Chief Complaint: headache follow-up LV: 04/01/23 Dr. Balbuena Impression and Plan from last visit: Pt is 22 year old female with chronic MIGRAINE Given that the headache started suddenly and has persisted on a daily basis--this may represent a NDPH. She can be treated using a migraine treatment paradigm in the interim to see if we can get her fewer headaches. D/C amitriptyline--no benefit. Trial of propranolol 20 mg po qhs; Trial of AJOVY 225 mg monthly. She can return in 3 months for follow-up care. Mary Curiel is a 22 year old year old female, with a history of chronic migraine. Her neurological examination is essentially normal at this visit. ICHD-3 Diagnosis: Chronic Migraine Headache (CM) Interval Headache History: Mary Curiel is a 22 year old year old female, with a history of chronic migraine following up today for daily headaches. Since the last visit, the patient states that her headaches have not changed. She was not able to tolerate propranolol (lightheaded) so she stopped the medication after 2 weeks. She had trouble getting Ajovy filled, just had 2nd injection this past week. Has not noticed much benefit, thinks her headaches may be a little less severe but hard to tell. Is in weekly therapy for anxiety, also on lexapro with another provider. Headache 1 Onset: - She reports that headaches started at age 16, but have not significantly worsened over that time. She reports no headache free days since age 16 when the headaches began. Location: bilateral and frontal Quality/Description: aching Associated Symptoms: Photophobia: no Phonophobia: no Nausea: no Vomiting: no Other symptoms: dizziness and lightheadedness Worse with activity: yes Number of migraine headache days/month: 0 Number of NON-migraine headache days/month: 30 Non-migraine headache severity: 3 (MAS's range from 2-3/10 to 8/10 in severity.) Total Number of headache days/month: 30 Number of headache free days/month: 0 Duration of headaches with treatment: continuous Current abortive treatment: sumatriptan Triggers: exertion/exercise, fasting/hunger and weather changes Onset of headache to peak: gradual Relieving factors: laying down Positional changes: no Most common time of day for headache to begin: morning, upon awakening, afternoon and evening Prodrome: none Aura: none Allodynia: no Days missed from work or school in the last month: 4 days Preventative: , Ajovy Abortive: none Medications effective? no # of doses of abortive medications per month: 0 Prior Therapies Duration of Use Dose Reason for Discontinuation Anti-Convulsant Gabapentin (Neurontin) Topiramate (Topamax, Trokendi XL, Qudexy) Appetite Suppression Anti-Depressant and Antipsychotic Amitriptyline (Elavil) Escitalopram (Lexapro) Anti-Migraine Sumatriptan (Imitrex, Sumavel) Blood Pressure Propranolol (Inderal) MABs Fremanezumab (Ajovy) Over the Counter Medications Acetaminophen (Tylenol) Acetaminophen/Aspirin/Caffeine (Excedrin, Goody s) Ibuprofen (Advil, Motrin) PAST MEDICAL HISTORY Diagnosis Date Anxiety state Chronic daily headache PAST SURGICAL HISTORY Procedure Laterality Date EYELID SURGERY PROCEDURE ALLERGIES Allergen Reactions Milk Containing Pro* Mental Status Change, Other: See Comments Current Medications: fremanezumab-vfrm (AJOVY AUTOINJECTOR) 225 mg/1.5 mL auto-injector Inject 1.5 mL subcutaneously once every month. Do not shake. escitalopram oxalate (LEXAPRO) 20 mg tablet Take 1 tablet by mouth once daily. I have reviewed the Leif Status Assessment responses and discussed these with the patient: yes Richy Freedman APRN.SUPERVISOR [employer] HEADACHE SCORES: 12/17/2022 03/30/2023 06/29/2023 Headache Questions ID Migraine Screener: 1 (Negative) ER visits in the last year: 0 ER visits since last office visit: 0 0 Hospital stays in the last year: 0 Hospital stays since last office visit 0 0 Limited ADLs in the last month: 7 8 Days missed from work or school in the last month: 3 4 Days headache pain free in the last month: 0 Days per month with ALL of the following symptoms - decreased productivity, light sensitivity and nausea: 0 0 Initial improvement of headache after botox injection at last visit: Not applicable, I did not have a botox injection at my last visit Not applicable, I did not have a botox injection at my last visit PRN medication usage in the last month: 7 8 Patient impression of improvement since last visit: No change Minimally improved 12/17/2022 03/30/2023 06/29/2023 HIT-6 HIT-6 62 (Severe impact) 61 (Severe impact) 63 (Severe impact) 12/17/2022 03/30/2023 06/29/2023 TANA - 2/7 SCORES TANA-2 Score 4 5 5 TANA-7 Score 11 15 13 12/17/2021 03/30/2023 06/29/2023 Migraine Specific QOL - Higher scores indicate better HRQL Role Function-Restrictive Transformed Score (range: 0-100) 54.29 51.43 34.29 Role Function-Preventive Transformed Score (range: 0-100) 65 75 75 Emotional Function Transformed Score (range: 0-100) 33.33 46.67 53.33 12/17/2022 03/30/2023 06/29/2023 PHQ-9 Score 5 7 10 Studies to Review: No MRI Head/Brain - Last 2 Impressions MRI BRAIN WO IVCON Exam End: 11/14/2017 3:17 PM (Final result) Impression: IMPRESSION: Normal brain MRI. Created by resident and approved This report has been created using voice recognition software MRA Head and/or Neck - Last 2 Impressions No resulted procedures found. CT Head/Brain - Last 2 Impressions No resulted procedures found. CTA Head and/or Neck - Last 2 No resulted procedures found. Labs to Review No New Health Issues: No New Family History: No Review of Systems: Review of system : unchanged from the previous visit (sleep patterns, mood, energy, appetite, stress, exercising). Physical Examination: VS: BP 120/70 (BP Site: Right Arm, BP Position: Sitting, BP Cuff Size: Regular Adult) Pulse 61 Temp 36.8 C (98.3 F) (Temporal) LMP 06/13/2023 (Approximate) General: well appearing, in no acute distress, alert HEENT: Normocephalic/atraumatic. Skin: Color, texture, turgor normal. No rashes or lesions Neurological: Pain Behaviors: no pain behaviors observed Mental Status: Alert and oriented to person, place and time. Affect is normal and appropriate. Speech is spontaneous and fluent without dysarthria, normal in rate, volume and articulation, and clear, coherent, and relevant. Short and intermediate teacher memory, cognition and general fund of knowledge are good. Attention span and concentration are excellent. Gait examination is normal. IMPRESSION: Chronic daily headache (primary encounter diagnosis) Mary Curiel is a 22 year old year old female, with a history of migraines and anxiety who presents with chronic daily headaches. Her neurological examination is essentially normal at this visit. She was not able to tolerate propranolol so this was discontinued. She may have mild benefit with Ajovy, I would like her to be on the medication for at least 3 months to evaluate the effectiveness. Can consider Botox as next treatment option if neccessary, I have also placed consult for acupuncture. Patient verbalized understanding and agreed to treatment plan. PLAN: -Continue Ajovy for now -Acupuncture referral -Follow up 3 months, can be virtual Prior Authorizations: Mary Curiel has been previously approved for Calcitonin Gene Related Peptide Monoclonal Antibody (CGRP MAB) (Fremanezumab). The patient has demonstrated the following: Patient reduction in overall migraine days: Yes Patient reduction in moderate-severe migraine days: Yes Individual has obtained clinical benefit deemed significant by individual or prescriber: Yes Patient's quality of life and ability to perform ADLs has improved: Yes We suggest the patient continue treatment with CGRP MAB Fremanezumab. The following preventative medications have been tried for three or more months without benefit: Anti-Convulsant Gabapentin (Neurontin) Topiramate (Topamax, Trokendi XL, Qudexy) Appetite Suppression Anti-Depressant and Antipsychotic Amitriptyline (Elavil) Escitalopram (Lexapro) Blood Pressure Propranolol (Inderal) MABs Fremanezumab (Ajovy) The following abortive medications have been tried but require high frequency use which can lead to Medication Overuse Headache: Anti-Migraine Sumatriptan (Imitrex, Sumavel) Over the Counter Medications Acetaminophen (Tylenol) Acetaminophen/Aspirin/Caffeine (Excedrin, Goody s) Ibuprofen (Advil, Motrin) HEADACHE MANAGEMENT: (You are the primary guardian of your health and headache. Keep track of all medications: This includes the reason for use, side effects and benefits.) MEDICATION TREATMENT: Medications to Start Taking None Discussed pathophysiology of headache. Discussed use of headache diary. Discussed triggers and lifestyle modifications including limiting caffeine consumption. Discussed treatment options, both abortive and preventive medications. Instructed patient about medications. Discussed BOTOX in detail including possible benefits and risks. Discussed medication overuse headache and to limit use of analgesics to less than 2 doses per week. Headache education was done. Discussed lifestyle modification including increased oral hydration, decreased caffeine, exercise and stress management. Discussed treatment options including preventive and acute medications, natural supplements, and infusion therapy. Discussed medication overuse headache and to limit use of acute treatments to no more than 2 days/week or 10 days/month. Discussed medication side effects, adverse reactions and drug interactions. RESEARCH: None at this time Follow-up: 3 months Level of service: Est level 4 (30-39 min). Time spent 30 min on the day of service, which included preparing to see the patient, [id number] patient care, completing clinical documentation, obtaining and/or reviewing separately obtained history, performing a medically appropriate examination, and counseling and educating the patient/family/caregiver. Richy Freedman APRN.SUPERVISOR [employer] Headache Section [facility] July 01, 2023 documented in this encounter [facility] 07-01-2023 Note HNO ID: [id number] Author: RICHY FREEDMAN APRN.ESMER Service: ? Author Type: Nurse Practitioner Type: Progress Notes Filed: 07/01/2023 10:19 Note Text: Outpatient Headache Clinic - Follow Up Visit Accompanied by: Mother Primary Problem List: There is no problem list on file for this patient. Chief Complaint: headache follow-up LV: 04/01/23 Dr. Balbuena Impression and Plan from last visit: Pt is 22 year old female with chronic MIGRAINE Given that the headache started suddenly and has persisted on a daily basis--this may represent a NDPH. She can be treated using a migraine treatment paradigm in the interim to see if we can get her fewer headaches. D/C amitriptyline--no benefit. Trial of propranolol 20 mg po qhs; Trial of AJOVY 225 mg monthly. She can return in 3 months for follow-up care. Mary Curiel is a 22 year old year old female, with a history of chronic migraine. Her neurological examination is essentially normal at this visit. ICHD-3 Diagnosis: Chronic Migraine Headache (CM) Interval Headache History: Mary Curiel is a 22 year old year old female, with a history of chronic migraine following up today for daily headaches. Since the last visit, the patient states that her headaches have not changed. She was not able to tolerate propranolol (lightheaded) so she stopped the medication after 2 weeks. She had trouble getting Ajovy filled, just had 2nd injection this past week. Has not noticed much benefit, thinks her headaches may be a little less severe but hard to tell. Is in weekly therapy for anxiety, also on lexapro with another provider. Headache 1 Onset: - She reports that headaches started at age 16, but have not significantly worsened over that time. She reports no headache free days since age 16 when the headaches began. Location: bilateral and frontal Quality/Description: aching Associated Symptoms: Photophobia: no Phonophobia: no Nausea: no Vomiting: no Other symptoms: dizziness and lightheadedness Worse with activity: yes Number of migraine headache days/month: 0 Number of NON-migraine headache days/month: 30 Non-migraine headache severity: 3 (MAS's range from 2-3/10 to 8/10 in severity.) Total Number of headache days/month: 30 Number of headache free days/month: 0 Duration of headaches with treatment: continuous Current abortive treatment: sumatriptan Triggers: exertion/exercise, fasting/hunger and weather changes Onset of headache to peak: gradual Relieving factors: laying down Positional changes: no Most common time of day for headache to begin: morning, upon awakening, afternoon and evening Prodrome: none Aura: none Allodynia: no Days missed from work or school in the last month: 4 days Preventative: , Ajovy Abortive: none Medications effective? no # of doses of abortive medications per month: 0 Prior Therapies Duration of Use Dose Reason for Discontinuation Anti-Convulsant Gabapentin (Neurontin) Topiramate (Topamax, Trokendi XL, Qudexy) Appetite Suppression Anti-Depressant and Antipsychotic Amitriptyline (Elavil) Escitalopram (Lexapro) Anti-Migraine Sumatriptan (Imitrex, Sumavel) Blood Pressure Propranolol (Inderal) MABs Fremanezumab (Ajovy) Over the Counter Medications Acetaminophen (Tylenol) Acetaminophen/Aspirin/Caffeine (Excedrin, Goody?s) Ibuprofen (Advil, Motrin) PAST MEDICAL HISTORY Diagnosis Date Anxiety state Chronic daily headache PAST SURGICAL HISTORY Procedure Laterality Date EYELID SURGERY PROCEDURE ALLERGIES Allergen Reactions Milk Containing Pro* Mental Status Change, Other: See Comments Current Medications: fremanezumab-vfrm (AJOVY AUTOINJECTOR) 225 mg/1.5 mL auto-injector Inject 1.5 mL subcutaneously once every month. Do not shake. escitalopram oxalate (LEXAPRO) 20 mg tablet Take 1 tablet by mouth once daily. I have reviewed the Leif Status Assessment responses and discussed these with the patient: yes Richy Freedman APRN.SUPERVISOR [employer] HEADACHE SCORES: 12/17/2022 03/30/2023 06/29/2023 Headache Questions ID Migraine Screener: 1 (Negative) ER visits in the last year: 0 ER visits since last office visit: 0 0 Hospital stays in the last year: 0 Hospital stays since last office visit 0 0 Limited ADLs in the last month: 7 8 Days missed from work or school in the last month: 3 4 Days headache pain free in the last month: 0 Days per month with ALL of the following symptoms - decreased productivity, light sensitivity and nausea: 0 0 Initial improvement of headache after botox injection at last visit: Not applicable, I did not have a botox injection at my last visit Not applicable, I did not have a botox injection at my last visit PRN medication usage in the last month: 7 8 Patient impression of improvement since last visit: No change Minimally improved 12/17/2022 03/30/2023 06/29/2023 HIT-6 HIT-6 62 (Severe impact) 61 (Severe impact) 63 (Severe impac (more content not included)... [facility] 05-30-2023 Miscellaneous Notes TC to patients motherTory, patients name and verified, informed her that patients PA for Ajovy has been approved, verbalizes understand and states her insurance company just called her to inform of the approval as well, she states she will togiak back with pharmacy to get the Ajovy filled. Received voicemail 05-30-23 at 11:10 AM. Hi this message is for Dr. Sree Robertson's nurse. My name is Tory Curiel. My phone number is [phone]. The patient is Mary Curiel. Birthday is 2000. We've had kind of a run around with her one prescription, and I was just hoping to check in on that status. Thank you. Forwarding to [facility] to assist. Spoke with patient's mother (verified patient's name and date of ) and informed her that prior authorization can take 25-30 days to complete and this does not include the time that it takes for the insurance to review. Patient's mother is asking for an update in regards to where in the process is the prior authorization. Please call back with an update for the prior authorization. Thank you! Name of Caller: Tory Relationship to patient: patient's mother Last visit in this department: 04/01/2023 Reason for Call: Other : Medication is still not at pharmacy Please advise Callback number: [phone] documented in this encounter [facility] 05-14-2023 Miscellaneous Notes Attempted to complete PA for Khadra: New [employer] Insurance information not available yet. I only see [place]. Judith Whalen MA documented in this encounter [facility] 04-17-2023 Telephone encounter Note Images from the original note were not included. See telephone encounter from 04/17/2023: Message posted below [facility] 04-17-2023 Miscellaneous Notes See Telephone Encounter from 04/15/2023 Patient [employer] insurance is updated in chart. Please send prior authorization for Ajovi for patient to [facility] in [place]. Dr. Balbuena's message given to patients mother. documented in this encounter [facility] 04-17-2023 Miscellaneous Notes Images from the original note were not included. See telephone encounter from 04/17/2023: Message posted below The patient can stop the propranolol. Please ensure that the [facility] is updated with the new insurance. Once the new insurance is active in our system, we can seek to get the prior auth for the AJOVY done for the new insurance. Prior authorizations are taking 4-6 weeks currently. Please have her notify us when the insurance has been updated appropriately. Jason Balbuena MD April 16, 2023 4:16 PM Please have the patient schedule a virtual visit with [facility]. Can discuss medication side-effects, alternatives, etc at that time. Jason Balbuena MD April 15, 2023 3:57 PM Last OV -04/01/2023 Next OV - 07/01/2023 Name of Caller: Tory Curiel Relationship to patient: patient's mother Last visit in this department: 04/01/2023 Reason for Call: Other : Patients Mom called to let Dr. Balbuena know that they have new insurance now. [employer]. The propranolol is making patient feel light headed, spacey, nauseas. Please advise what to do. Also needs the Ajovy-injection. Can that be submitted to new insurance asa? Thanks. Please call Mom. Callback number: [phone] Michelle Manley documented in this encounter [facility] 04-16-2023 Telephone encounter Note The patient can stop the propranolol. Please ensure that the [facility] is updated with the new insurance. Once the new insurance is active in our system, we can seek to get the prior auth for the AJOVY done for the new insurance. Prior authorizations are taking 4-6 weeks currently. Please have her notify us when the insurance has been updated appropriately. Jason Balbuena MD April 16, 2023 4:16 PM [facility] 04-15-2023 Telephone encounter Note Please have the patient schedule a virtual visit with [employer] [employer]. Can discuss medication side-effects, alternatives, etc at that time. Jason Balbuena MD April 15, 2023 3:57 PM [facility] 04-15-2023 Telephone encounter Note Last OV -04/01/2023 Next OV - 07/01/2023 [facility] 04-15-2023 Telephone encounter Note Name of Caller: Tory Curiel Relationship to patient: patient's mother Last visit in this department: 04/01/2023 Reason for Call: Other : Patients Mom called to let Dr. Balbuena know that they have new insurance now. [employer]. The propranolol is making patient feel light headed, spacey, nauseas. Please advise what to do. Also needs the Ajovy-injection. Can that be submitted to new insurance asasp? Thanks. Please call Mom. Callback number: [phone] Michelle Manley [facility] 04-01-2023 Instructions Jason Balbuena MD - 04/01/2023 8:45 AM EST Propranolol 20 mg: take 1 tablet at bedtime. AJOVY 225 mg: Inject monthly. documented in this encounter [facility] 04-01-2023 Note HNO ID: [id number] Author: JASON BALBUENA MD Service: ? Author Type: Physician Type: Progress Notes Filed: 04/01/2023 18:54 Note Text: HEADACHE MEDICINE ESTABLISHED VISIT April 01, 2023 8:00 AM Interim History: Still with 30/30 days of chronic headache. No benefit to amitriptyline. Discussed other options. Mother is with patient today. Answers submitted by the patient for this visit: Headache Questionnaire (Submitted on 03/30/2023) How many days of work or school have you missed due to headaches in the last month? : 3 In the last month, how many headache days did you experience ALL of the following symptoms: decreased productivity, light sensitivity and nausea?: 0 How many days have you been completely free of headache pain in the last month? : 0 HEADACHE SCORES: Headache Questions 12/17/2021 12/17/2022 03/30/2023 ID Migraine Screener: 2 (Positive) 1 (Negative) - ER visits in the last year: 0 0 - ER visits since last office visit: - - 0 Hospital stays in the last year: 0 0 - Hospital stays since last office visit - - 0 Limited ADLs in the last month: 7 - 7 Days missed from work or school in the last month: 3 - 3 Days headache pain free in the last month: 0 - 0 Days per month with ALL of the following symptoms - decreased productivity, light sensitivity and nausea: 0 - 0 Initial improvement of headache after botox injection at last visit: - - Not applicable, I did not have a botox injection at my last visit PRN medication usage in the last month: 9 - 7 Patient impression of improvement since last visit: - - No change HIT-6 12/17/2021 12/17/2022 03/30/2023 HIT-6 62 (Severe impact) 62 (Severe impact) 61 (Severe impact) TANA - 2/7 SCORES 12/13/2022 12/17/2022 03/30/2023 TANA-2 Score 4 4 5 TANA-7 Score 11 11 15 Migraine Specific QOL - Higher scores indicate better HRQL 12/17/2021 03/30/2023 Role Function-Restrictive Transformed Score (range: 0-100) 54.29 51.43 Role Function-Preventive Transformed Score (range: 0-100) 65 75 Emotional Function Transformed Score (range: 0-100) 33.33 46.67 PHQ-9 12/13/2022 12/17/2022 03/30/2023 Score 4 5 7 PAST MEDICAL HISTORY Diagnosis Date Anxiety state Chronic daily headache Current Outpatient Medications Medication Sig escitalopram oxalate (LEXAPRO) 20 mg tablet Take 1 tablet by mouth once daily. fremanezumab-vfrm (AJOVY AUTOINJECTOR) 225 mg/1.5 mL auto-injector Inject 1.5 mL subcutaneously once every month. Do not shake. propranolol (INDERAL) 20 mg tablet Take 1 tablet by mouth daily at bedtime. No current facility-administered medications for this visit. ALLERGIES Allergen Reactions Milk Containing Pro* Mental Status Change, Other: See Comments Mary was seen today for follow up. Diagnoses and all orders for this visit: Intractable chronic migraine without aura and without status migrainosus - fremanezumab-vfrm (AJOVY AUTOINJECTOR) 225 mg/1.5 mL auto-injector; Inject 1.5 mL subcutaneously once every month. Do not shake. - propranolol (INDERAL) 20 mg tablet; Take 1 tablet by mouth daily at bedtime. - PROVIDER ORDERED FOLLOW UP; Future Pt is 22 year old female with chronic MIGRAINE Given that the headache started suddenly and has persisted on a daily basis--this may represent a NDPH. She can be treated using a migraine treatment paradigm in the interim to see if we can get her fewer headaches. D/C amitriptyline--no benefit. Trial of propranolol 20 mg po qhs; Trial of AJOVY 225 mg monthly. She can return in 3 months for follow-up care. Mary Curiel is a 22 year old year old female, with a history of chronic migraine. Her neurological examination is essentially normal at this visit. ICHD-3 Diagnosis: Chronic Migraine Headache (CM) We will request precertification for Calcitonin Gene Related Peptide Monoclonal Antibody, Fremanezumab. This patient meets ICHD-3 criteria for treatment with CGRP MAB, She has Chronic Migraine Headache (CM), Chronic Migraine without aura, without mention of intractable migraine without mention of status migrainosus which occurs at least 15 days per month for at least 4 hours per day. The FDA has approved CGRP MAB for prevention of migraine. Specifically, the patient has 30 migraines per month, lasting 4 or more hours/d associated with photophobia for three or more months. Medication overuse headache has been ruled out. Patient is not currently taking a Gepant for acute treatment of her migraine. The following preventative medications have been tried for 3 or more months without benefit or discontinued due and/or side effects. Anti-Convulsant Gabapentin (Neurontin) Topiramate (Topamax, Trokendi XL, Qudexy) Appetite Suppression Anti-Depressant and Antipsychotic Amitriptyline (Elavil) Escitalopram (Lexapro) Blood Pressure Propranolol (Inderal) MABs Fremanezumab (Ajovy) The following abortive medications have been tried but require high frequency use which can lead to (more content not included)... [facility] 04-01-2023 History of Present illness Narrative HEADACHE MEDICINE ESTABLISHED VISIT April 01, 2023 8:00 AM Interim History: Still with 30/30 days of chronic headache. No benefit to amitriptyline. Discussed other options. Mother is with patient today. Answers submitted by the patient for this visit: Headache Questionnaire (Submitted on 03/30/2023) How many days of work or school have you missed due to headaches in the last month? : 3 In the last month, how many headache days did you experience ALL of the following symptoms: decreased productivity, light sensitivity and nausea?: 0 How many days have you been completely free of headache pain in the last month? : 0 HEADACHE SCORES: Headache Questions 12/17/2021 12/17/2022 03/30/2023 ID Migraine Screener: 2 (Positive) 1 (Negative) - ER visits in the last year: 0 0 - ER visits since last office visit: - - 0 Hospital stays in the last year: 0 0 - Hospital stays since last office visit - - 0 Limited ADLs in the last month: 7 - 7 Days missed from work or school in the last month: 3 - 3 Days headache pain free in the last month: 0 - 0 Days per month with ALL of the following symptoms - decreased productivity, light sensitivity and nausea: 0 - 0 Initial improvement of headache after botox injection at last visit: - - Not applicable, I did not have a botox injection at my last visit PRN medication usage in the last month: 9 - 7 Patient impression of improvement since last visit: - - No change HIT-6 12/17/2021 12/17/2022 03/30/2023 HIT-6 62 (Severe impact) 62 (Severe impact) 61 (Severe impact) TANA - 2/7 SCORES 12/13/2022 12/17/2022 03/30/2023 TANA-2 Score 4 4 5 TANA-7 Score 11 11 15 Migraine Specific QOL - Higher scores indicate better HRQL 12/17/2021 03/30/2023 Role Function-Restrictive Transformed Score (range: 0-100) 54.29 51.43 Role Function-Preventive Transformed Score (range: 0-100) 65 75 Emotional Function Transformed Score (range: 0-100) 33.33 46.67 PHQ-9 12/13/2022 12/17/2022 03/30/2023 Score 4 5 7 PAST MEDICAL HISTORY Diagnosis Date Anxiety state Chronic daily headache Current Outpatient Medications Medication Sig escitalopram oxalate (LEXAPRO) 20 mg tablet Take 1 tablet by mouth once daily. fremanezumab-vfrm (AJOVY AUTOINJECTOR) 225 mg/1.5 mL auto-injector Inject 1.5 mL subcutaneously once every month. Do not shake. propranolol (INDERAL) 20 mg tablet Take 1 tablet by mouth daily at bedtime. No current facility-administered medications for this visit. ALLERGIES Allergen Reactions Milk Containing Pro* Mental Status Change, Other: See Comments Mary was seen today for follow up. Diagnoses and all orders for this visit: Intractable chronic migraine without aura and without status migrainosus - fremanezumab-vfrm (AJOVY AUTOINJECTOR) 225 mg/1.5 mL auto-injector; Inject 1.5 mL subcutaneously once every month. Do not shake. - propranolol (INDERAL) 20 mg tablet; Take 1 tablet by mouth daily at bedtime. - PROVIDER ORDERED FOLLOW UP; Future Pt is 22 year old female with chronic MIGRAINE Given that the headache started suddenly and has persisted on a daily basis--this may represent a NDPH. She can be treated using a migraine treatment paradigm in the interim to see if we can get her fewer headaches. D/C amitriptyline--no benefit. Trial of propranolol 20 mg po qhs; Trial of AJOVY 225 mg monthly. She can return in 3 months for follow-up care. Mary Curiel is a 22 year old year old female, with a history of chronic migraine. Her neurological examination is essentially normal at this visit. ICHD-3 Diagnosis: Chronic Migraine Headache (CM) We will request precertification for Calcitonin Gene Related Peptide Monoclonal Antibody, Fremanezumab. This patient meets ICHD-3 criteria for treatment with CGRP MAB, She has Chronic Migraine Headache (CM), Chronic Migraine without aura, without mention of intractable migraine without mention of status migrainosus which occurs at least 15 days per month for at least 4 hours per day. The FDA has approved CGRP MAB for prevention of migraine. Specifically, the patient has 30 migraines per month, lasting 4 or more hours/d associated with photophobia for three or more months. Medication overuse headache has been ruled out. Patient is not currently taking a Gepant for acute treatment of her migraine. The following preventative medications have been tried for 3 or more months without benefit or discontinued due and/or side effects. Anti-Convulsant Gabapentin (Neurontin) Topiramate (Topamax, Trokendi XL, Qudexy) Appetite Suppression Anti-Depressant and Antipsychotic Amitriptyline (Elavil) Escitalopram (Lexapro) Blood Pressure Propranolol (Inderal) MABs Fremanezumab (Ajovy) The following abortive medications have been tried but require high frequency use which can lead to Medication Overuse Headache: Anti-Migraine Sumatriptan (Imitrex, Sumavel) Over the Counter Medications Acetaminophen (Tylenol) Acetaminophen/Aspirin/Caffeine (Excedrin, Goody s) Ibuprofen (Advil, Motrin) Jason Balbuena MD April 01, 2023 6:52 PM documented in this encounter [facility] 12-20-2022 Note HNO ID: [id number] Author: Jason Balbuena MD Service: ? Author Type: Physician Type: Progress Notes Filed: 12/20/2022 5:25 PM Note Text: HEADACHE MEDICINE NEW EVALUATION December 20, 2022 5:00 PM VIRTUAL VISIT I have communicated my name and active licensure. The patient's identity and physical location were verified at the time of this visit. Either the patient or their legal brand representative has been informed of the risks and benefits of -- and alternatives to -- treatment through a remote evaluation and consents to proceed with the evaluation remotely. Headache 1 Onset: - She reports that headaches started at age 16, but have not significantly worsened over that time. She reports no headache free days since age 16 when the headaches began. Location: bilateral and frontal Quality/Description: aching Associated Symptoms: Photophobia: no Phonophobia: no Nausea: no Vomiting: no Other symptoms: dizziness and lightheadedness Worse with activity: yes Number of migraine headache days/month: 0 Number of NON-migraine headache days/month: 30 Non-migraine headache severity: 3 (MAS's range from 2-3/10 to 8/10 in severity.) Total Number of headache days/month: 30 Number of headache free days/month: 0 Duration of headaches with treatment: continuous Current preventive treatment: gabapentin (she reports this is ineffective). Current abortive treatment: sumatriptan (ineffective), ibuprofen (ineffective) Triggers: exertion/exercise, fasting/hunger and weather changes Onset of headache to peak: gradual Relieving factors: laying down Positional changes: no Most common time of day for headache to begin: morning, upon awakening, afternoon and evening Prodrome: none Aura: none Allodynia: no Days missed from work or school in the last month: 2 days PAST MEDICAL HISTORY Diagnosis Date Anxiety state Chronic daily headache PAST SURGICAL HISTORY Procedure Laterality Date EYELID SURGERY PROCEDURE Social History Tobacco Use Smoking status: Never Smokeless tobacco: Never Substance Use Topics Alcohol use: Never Drug use: Never FAMILY HISTORY Problem Relation Age of Onset Headache Brother migraines rarely Aneurysm No Family History Brain Cancer No Family History No current outpatient medications on file prior to visit. No current facility-administered medications on file prior to visit. ALLERGIES No Known Allergies PHYSICAL EXAMINATION: No vitals for VV General appearance: Well appearing, alert, in no acute distress, well-hydrated, well nourished. Skin: Skin color, texture, turgor normal, no suspicious rashes or lesions Head: NC/AT Eyes: EOMI grossly on video visit Neuro: Negative findings: speech normal, mental status intact, no focal deficits. CN VII intact to facial symmetry, CN VIII intact to hearing. RADIOLOGY: MRI-BRAIN: [facility]: 11/14/17: IMPRESSION: Normal brain MRI. (Accessed via Care Everywhere). Diagnoses and all orders for this visit: Chronic daily headache - amitriptyline (ELAVIL) 10 mg tablet; Take 1 tablet by mouth daily at bedtime. Anxiety neurosis - escitalopram oxalate (LEXAPRO) 20 mg tablet; Take 1 tablet by mouth once daily. Pt is 22 year old female with chronic daily headache that does not meet criteria for migraine at this time. Given that the headache started suddenly and has persisted on a daily basis--this may represent a NDPH. She can be treated using a migraine treatment paradigm in the interim to see if we can get her fewer headaches. Recommend trial of amitriptyline 10 mg po qhs as a preventative medication. She carries a diagnosis of anxiety, and is already on escitalopram 20 mg daily, but the amitriptyline will not be expected to significantly interact with the escitalopram at this dose. She can return in 3 months for follow-up care. Jason Balbuena MD December 20, 2022 5:24 PM [facility] Evaluation note Diagnosis Intractable chronic migraine without aura and without status migrainosus- Primary Chronic migraine without aura, with intractable migraine, so stated, without mention of status migrainosus documented [facility] this [facility] Diagnosis Chronic daily headache- Primary Headache [facility] Diagnosis Intractable chronic migraine without aura and without status migrainosus- Primary Chronic migraine without aura, with intractable migraine, so stated, without mention of status migrainosus documented [facility] this encounter [facility] Diagnosis Intractable chronic migraine without aura and without status migrainosus- Primary Chronic migraine without aura, with intractable migraine, so stated, without mention of status migrainosus Chronic daily headache Headache [facility]* Diagnosis Chronic daily headache- Primary Headache Functional neurological symptom disorder with mixed symptoms [facility] Diagnosis Intractable chronic migraine without aura and without status migrainosus- Primary [facility] Diagnosis Other systemic lupus erythematosus with lung involvement (HCC)- Primary Intractable migraine without aura and without status migrainosus Functional neurological symptom disorder with mixed symptoms [facility] noteNo assessment information availableWGrand Lake [facility] Work Phone: Evaluation note* Diagnosis 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- Primary Functional neurological symptom disorder with attacks or seizures [facility]* Diagnosis 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- Primary Functional neurological symptom disorder with attacks or seizures [facility] for referral (narrative)No reason for referral information availableWGrand [facility] Work Phone: Summary Purpose Family History No Family History Records FoundNo Family History Records FoundNo Family History Records FoundNo Family History Records FoundNo Family History Records FoundNo Family History Records Found Advance Directives No Advanced Directives Records FoundNo Advanced Directives Records FoundNo Advanced Directives Records FoundNo Advanced Directives Records FoundNo Advanced Directives Records FoundNo Advanced Directives Records Found Reason for Referral Specialty Diagnoses / Procedures Referred By Contac t Referred To Contact Diagnoses Intractable chronic migraine without aura and without status migrainosus Procedures PROVIDER ORDERED FOLLOW UP OFFICE/OUTPATIENT [facility] 60 [place] [address] [place] [address] Referral ID Status Reason Start Date Expiration Date Visits Requested Visits Authorized [id number] Authorized PCP Requested Referral 06/30/2023 03/31/2024 1 1 Specialty Diagnoses / Procedures Referred By Contac t Referred To Contact Diagnoses Chronic daily headache Procedures CONSULT FOR ACUPUNCTURE ACUPUNCTURE 1/> NDLS W/ELEC STIMJ 1ST 15 MIN ACUP 1/> NDLS W/ELEC STIMJ EA 15 MIN W/RE-INSJ Richy Freedman APRN.[employer] [address] [place] [address] Referral ID Status Reason Start Date Expiration Date Visits Requested Visits Authorized [id number] Pending Review PCP Requested Referral 07/01/2023 06/30/2024 1 1 Chief Complaint and Reason for Visit Chief Complaint Admit Date DAILY HEADACHES, CERVICALAGIA, TOURETTES 'S TICS October 25, 2024 9:04am Additional Source Comments INFORMATION SOURCE (unrecogn ized section and content) DATE CREATED AUTHOR 03/27/2021 [facility] ([place]) DATE CREATED AUTHOR AUTHOR'S ORGANIZ ATION 08/22/[address] [facility] DATE CREATED AUTHOR AUTHOR'S ORGANIZ ATION 09/19/2023 [facility] DATE CREATED AUTHOR AUTHOR'S ORGANIZ ATION 09/20/2023 [facility] DATE CREATED AUTHOR AUTHOR'S ORGANIZ ATION 07/21/2024 [facility] DATE CREATED AUTHOR AUTHOR'S ORGANIZ ATION 11/03/2024 [facility] Source Comments (unrecognize d section and content) In the event this informatio n is protected by the Federal Confidentiality of Alcohol and Drug Abuse Patient Records regulations: The Federal rules restrict any use of the information to criminally investigate or prosecute any alcohol or drug abuse patient.[facility] Inc[facility] the event this information is protected by the Federal Confidentiality of Alcohol and Drug Abuse Patient Records regulations: The Federal rules restrict any use of the information to criminally investigate or prosecute any alcohol or drug abuse patient.[facility] Inc[facility] the event this information is protected by the Federal Confidentiality of Alcohol and Drug Abuse Patient Records regulations: The Federal rules restrict any use of the information to criminally investigate or prosecute any alcohol or drug abuse patient.[facility] Inc[facility] the event this information is protected by the Federal Confidentiality of Alcohol and Drug Abuse Patient Records regulations: The Federal rules restrict any use of the information to criminally investigate or prosecute any alcohol or drug abuse patient.[facility] IncIn the event this information is protected by the Federal Confidentiality of Alcohol and Drug Abuse Patient Records regulations: The Federal rules restrict any use of the information to criminally investigate or prosecute any alcohol or drug abuse patient.[facility] IncIn the event this information is protected by the Federal Confidentiality of Alcohol and Drug Abuse Patient Records regulations: The Federal rules restrict any use of the information to criminally investigate or prosecute any alcohol or drug abuse patient.[facility] IncIn the event this information is protected by the Federal Confidentiality of Alcohol and Drug Abuse Patient Records regulations: The Federal rules restrict any use of the information to criminally investigate or prosecute any alcohol or drug abuse patient.[facility] IncIn the event this information is protected by the Federal Confidentiality of Alcohol and Drug Abuse Patient Records regulations: The Federal rules restrict any use of the information to criminally investigate or prosecute any alcohol or drug abuse patient.[facility] IncIn the event this information is protected by the Federal Confidentiality of Alcohol and Drug Abuse Patient Records regulations: The Federal rules restrict any use of the information to criminally investigate or prosecute any alcohol or drug abuse patient.[facility] Reason for Visit (unrecogniz ed section and content) Reason Comments Follow Up Reason Comments Patient Update Medication Request Reason Comments Insurance Authorization Ajovy/[employer] Reason Comments Medication Problem Reason Comments Follow Up Daily Headache Specialty Diagnoses / Procedures Referred By Leonard de dios Referred To Contact Diagnoses Intractable chronic migraine without aura and without status migrainosus Procedures PROVIDER ORDERED FOLLOW UP OFFICE/OUTPATIENT [facility] [address] [place] [address] [place] [address] Referral ID Status Reason Start Date Expiration Date V isits Requested Visits Authorized [id number] Closed PCP Requested Referral 06/30/2023 03/31/2024 1 1 Reason Comments Follow Up Reason Comments Referral Request Reason Comments Botox Injection Specialty Diagnoses / Procedures Referred By Leonard de dios Referred To Contact HEADACHE Diagnoses Chronic migraine without aura, intractable, without status migrainosus Procedures BOTULINUM TOXIN A PER 1 UNIT CHEMODERVATE FACIAL/TRIGEM/CERV [facility] MIGRAINE Initial due 08/27/2023 Botox 200 units every 12 weeks for 1 year through [facility] buy and bill Preempt protocol [id number] Procedure -[id number] chemodervate facial/trigem/[place] [address] [place] [address] Neur Headache Main [address] [place] [address] Referral ID Status Reason Start Date Expiration Date V isits Requested Visits Authorized [id number] Authorized 09/17/2023 09/15/2024 4 4 Reason Onset Date Comments Referral 12/10/2023 Reason Comments New Patient Chronic daily headac hes Specialty Diagnoses / Procedures Referred By Contac t Referred To Contact Neurology Diagnoses Headache, unspecified Procedures AL OFFICE/OUTPATIENT NEW MODERATE MDM 45 MINUTES [facility] [address] [place] [address] Phone: tel: Zarina Slaughter MD [address] [facility] [place] [address] Phone: tel: fax: Referral ID Status Reason Start Date Expiration Date V isits Requested Visits Authorized [id number] Pending Review 12/12/2023 12/11/2024 1 1 Reason Comments Follow-up Specialty Diagnoses / Procedures Referred By Contac t Referred To Contact Diagnoses Intractable chronic migraine without aura and without status migrainosus Gale Yañez, LINUX SUPPORT ENGINEER - [employer] [address] [place] [address] Phone: tel: fax: Referral ID Status Reason Start Date Expiration Date V isits Requested Visits Authorized [id number] Pending Review 03/05/2024 02/28/2025 1 1 Reason Comments Follow-up Migraine Reason Comments Migraine Reason Comments Migraine Care Teams (unrecognized sec tion and content) Chemical Blender Relationship Specialty Start Date End Date Jeanette Venegas [address] [phone] PCP - General Internal Medicine 02/05/24 Chemical Blender Relationship Specialty Start Date End Date Jeanette Venegas [address] [phone] PCP - General Internal Medicine 02/05/24 Chemical Blender Relationship Specialty Start Date End Date Jeanette Venegas [address] [phone] PCP - General Internal Medicine 02/05/24 Team Status: Active Member Role Status Dates Gale ROTH, FORGE TENDER-C Primary Care Provider Activ e Team Status: Inactive Member Role Status Dates Gale ROTH, FORGE TENDER-C Primary Care Provider Activ e Start: April 19, 2024 End: April 19, 2024 Dr. Zarina Simeon MD Attending Provider Active Start: April 19, 2024 End: April 19, 2024 Dr. Zarina Simeon MD Referring Provider Active Start: April 19, 2024 End: April 19, 2024 Chemical Blender Relationship Specialty Start Date End Date Jeanette Venegas [address] [phone] PCP - General Internal Medicine 02/05/24 Chemical Blender Relationship Specialty Start Date End Date Jeanette Venegas [address] [phone] PCP - General Internal Medicine 02/05/24 Team Status: Active Member Role/Relationship Status Dates Gale ROTH, FORGE TENDER-C Primary Care Provider Activ e Team Status: Inactive Member Role/Relationship Status Dates NADER MAGALLANES Attending Provider Active Start: Ju ly 2024 End: September 02, 2024 NADER MAGALLANES Referring Provider Active Start: Ju ly 2024 End: September 02, 2024 Gale ROTH, FORGE TENDER-C Primary Care Provider Activ e Start: September 02, 2024 End: September 02, 2024 Team Status: Active Member Role/Relationship Status Dates Gale Brett VSC, FORGE TENDER-C Primary care physician Acti ve Team Status: Inactive Member Role/Relationship Status Dates NADER MAGALLANES Attending physician Active Start: Ortega bell 2024 End: September 02, 2024 NADER MAGALLANES Referring Provider Active Start: Nancy bah 2024 End: September 02, 2024 Gale Brett LINDSAYC, FORGE TENDER-C Primary care physician Acti ve Start: September 02, 2024 End: September 02, 2024 Team Status: Inactive Member Role/Relationship Status Dates Gale Brett VSBear, FORGE TENDER-C Primary care physician Acti ve Start: October 25, 2024 End: October 25, 2024 CAROLE ARIZA Attending physician Active Start: Armin valdez 2024 End: October 25, 2024 Goals (unrecognized section and content) Goals may be documented in a n alternate sectionGoals may be documented in an alternate sectionGoals may be documented in an alternate section FOR RECORDS PERTAINING TO PATIENTS WHO ARE OR HAVE BEEN ENROLLED IN A CHEMICAL DEPENDENCY/SUBSTANCEABUSE PROGRAM, SOME INFORMATION MAY BE OMITTED. This clinical summary was aggregated from multiple sources. Caution should be exercised in using it in the provision of clinical care. This summary normalizes information from multiple sources, and as a consequence, information in this document may materially change the coding, format and clinical context of patient data. In addition, data may be omitted in some cases. CLINICAL DECISIONS SHOULD BE BASED ON THE PRIMARY CLINICAL RECORDS. [facility]. provides no warranty or guarantee of the accuracy or completeness of information in this document.
[2025-01-07 11:27] LABS: Hematocrit 41.8 % (37-47); Hemoglobin 14.0 g/dL (12.0-15.0); Immature Granulocytes Count 0.030 X10^3/uL (0.0-0.0); Mean Corp Hgb Conc 33.5 g/dL (32-36); Mean Corpuscular Volume 88.0 fL (81-99); Mean Platelet Vol. 10.0 fl (6.2-12.0); NRBC Flagged by Analyzer 0 % (0-5); Platelet Count 272 K/mm3 (150-450); RBC Distribution Width CV 12.0 % (11.6-14.6); RBC Distribution Width SD 38.6 fl (35.1-43.9); Red Blood Count 4.75 M/mm3 (4.2-5.4); White Blood Count 8.8 K/mm3 (4.4-11.0)
[2025-01-07 12:03] LABS: AST(SGOT) 194 U/L (<=31); Alanine Aminotransfer ALT/SGPT 130 U/L (<=34); Albumin, Serum 4.2 g/dL (3.5-5.0); Alkaline Phosphatase 77 U/L (35-104); Anion Gap 13 (5-15); BUN 7 mg/dL (4-19); BUN/Creat Ratio 10.6 RATIO (10-20); Calcium,Total 9.9 mg/dL (7.6-11.0); Carbon Dioxide 25.9 mmol/L (21.0-32.0); Chloride 103 mmol/L (98-108); Globulin 3.3 g/dL (2.2-4.2); Glucose 103 mg/dL (70-99); Potassium 3.9 mmol/L (3.3-5.1)
== END | disposition home or self-care (01) ==
LOC: LAB 11:14
PROVIDERS: PCP Nurse Practitioner Family
DX: G43.709 Chronic migraine without aura, not intractable, without status migrainosus (principal); Z79.899 Other long term (current) drug therapy
CPT/HCPCS: 36415; 80053; 85025